=== PATIENT | male | born 1950 | race Caucasian/White ===

== ENCOUNTER 2018-03-13 09:52 | Inpatient (IN) ==
[2018-03-13] MEDS ORDERED: Naloxone Inj 0.4 MG/ML Vial IV.PUSH PRN (13:41)
[2018-03-13] MEDS ORDERED: Dextrose 50% in Water 50 ML Vial IV.PUSH PRN (13:41)
[2018-03-13] MEDS ORDERED: Acetaminophen 325 MG Tablet PO PRN ×2 (13:41)
--- NOTE | 2018-03-13 14:58 | P.HP ---
History of Present Illness Primary Care Physician: UNKNOWN Chief Complaint: Substernal chest pain History of Present Illness: 67-year-old male with a past medical history of diabetes type 2, CAD, prior [place] with stent placed presented to the ED for evaluation of acute onset of substernal chest pain rated over 6 in intensity associated with shortness of breath without any diaphoresis, with radiation to his neck and upper left arm without any tingling or numbness of upper extremities. Patient states despite taking over 2 nitroglycerin he did not have any relief until presented to the ED. The pain lasted more than 30 minutes. On arrival to the ED, patient was found to have SBP of over 200. GI bleed, he had some associated headaches. Inpatient Certification: I certify that the inpatient services were ordered in accordance with Medicare regulations governing the order. This includes certification that hospital inpatient services are reasonable and necessary and in the case of services not specified as inpatient-only under 42 CFR 419.22(n), that they are appropriately provided as inpatient services in accordance to with the 2-midnight benchmark under 43 CFR 412.3(e) Estimated Total Length of Stay (Days): 2 Plans for Post Hospital Care: Not yet determined Review of Systems All other systems reviewed negative except as stated in HPI PMFSH - History History Provided By: Patient - Medical History Medical History: Medical History (Last Updated 03/13/18 @ 13:42 by Renetta Mcmahon RN) Acute renal insufficiency At risk for falls Cataract, left eye Congenital pes planus Coronary atherosclerosis Diabetic retinopathy Hyperlipidemia Hypersomnia with sleep apnea Obesity, Class III, BMI 40-49.9 (morbid obesity) Polyneuropathy in diabetes Venous (peripheral) insufficiency Venous ulcer of leg CAD (coronary artery disease) Diabetes Heart attack Hernia Hypertension PAD (peripheral artery disease) - Surgical History Surgical History: Surgical History (Last Updated 03/13/18 @ 13:43 by Renetta Mcmahon RN) H/O hernia repair History of cholecystectomy Stented coronary artery - Family History Family History: Family History (Last Updated 03/13/18 @ 14:52 by Dov Briggs MD) Other CAD (coronary artery disease) CVA (cerebral vascular accident) - Tobacco History Second Hand Smoke Exposure: No Tobacco Use In Past 30 Days: No Smoking Status: Never smoker - Alcohol History How Often Do You Have a Drink Containing Alcohol: Never - Substance Use History Substance History: No History of Abuse - Travel History Recent Travel in the [place] Within the Last 8 Weeks: No Recent Travel Out of the Country Within the Last 8 Weeks: No - Immunization History Tetanus Immunization: Unsure Hx Influenza Vaccine This Season: Yes Medications and Allergies Active Medications: Active Medications Acetaminophen (Tylenol) 650 mg PO Q4H PRN PRN Reason: Temp > 100.4 Acetaminophen (Tylenol) 650 mg PO Q6HR PRN PRN Reason: PAIN SCALE 1 TO 2 Al Hydroxide/Mg Hydroxide (Milk Of Carolin Parr) 30 ml PO Q12H PRN PRN Reason: Mild Constipation Dextrose (D50w Vial) 50 ml IV.PUSH UNSCH PRN PRN Reason: PER HYPOGLYCEMIA PROTOCOL Glucagon (Glucagon Inj) 1 mg OTHER PRN PRN PRN Reason: for Hypoglycemia Protocol Insulin Aspart (Novolog Insulin Correctional Sugar Inj) 0 unit SQ ACHS LONG; Protocol Naloxone HCl (Narcan Inj) 0.4 mg IV.PUSH UNSCH PRN PRN Reason: SEE LABEL COMMENTS Ondansetron HCl (Zofran Inj) 4 mg IV.PUSH Q6H PRN PRN Reason: NAUSEA OR VOMITING Sodium Chloride (Ns Flush) 2 ml IV.FLUSH BID LONG Sodium Chloride (Ns Flush) 2 ml IV.FLUSH PRN PRN PRN Reason: FLUSH AFTER USING IV ACCESS Allergies Allergy/AdvReac Type Severity Reaction Status Date / Time amoxicillin Allergy Severe Hives Verified 03/13/18 13:43 losartan Allergy Hives Verified 03/13/18 13:43 Home Medications Medication Instructions Recorded Confirmed Type GlucaGen HypoKit 03/13/18 History amlodipine 10 mg PO DAILY 03/13/18 03/13/18 History aspirin [Aspir-81] 81 mg PO DAILY 03/13/18 03/13/18 History atorvastatin 80 mg PO DAILY 03/13/18 03/13/18 History carvedilol 12.5 mg PO BID 03/13/18 03/13/18 History clopidogrel [Plavix] 75 mg PO DAILY 03/13/18 03/13/18 History duloxetine 80 mg PO DAILY 03/13/18 03/13/18 History furosemide 40 mg PO DAILY 03/13/18 03/13/18 History gabapentin 300 mg PO TID 03/13/18 03/13/18 History gemfibrozil 600 mg PO BID 03/13/18 03/13/18 History glipizide 5 mg PO DAILY 03/13/18 03/13/18 History insulin aspart U-100 [Novolog 22 units SUBCUT PRN 03/13/18 History PenFill U-100 Insulin] insulin glargine [Lantus U-100 45 unit SUBCUT BID 03/13/18 03/13/18 History Insulin] insulin glargine [Lantus U-100 90 unit SUBCUT BID 03/13/18 03/13/18 History Insulin] isosorbide mononitrate 90 mg PO QAM 03/13/18 03/13/18 History lisinopril 20 mg PO DAILY 03/13/18 03/13/18 History lisinopril 20 mg PO DAILY 03/13/18 03/13/18 History magnesium oxide 400 mg PO BID 03/13/18 03/13/18 History metformin 1,000 mg PO BID 03/13/18 03/13/18 History niacin 1,500 mg PO QAM 03/13/18 03/13/18 History nitroglycerin 0.4 mg SUBLINGUAL Q5-15M PRN 03/13/18 03/13/18 History vitamin B complex 1 tab PO DAILY 03/13/18 03/13/18 History Exam Vital signs: Intake & Output 03/12/18 03/13/18 03/13/18 18:59 06:59 18:59 Weight 152.6 kg Other: Weight On Admission 152.6 kg Narrative: GENERAL: NAD SKIN: Warm and dry. HEAD: Atraumatic. Normocephalic. EYES: Pupils equal and round. No scleral icterus. No injection or drainage. ENT: No nasal bleeding or discharge. Mucous membranes pink and moist. NECK: Trachea midline. No JVD. CARDIOVASCULAR: Regular rate and rhythm. RESPIRATORY: No accessory muscle use. Clear to auscultation. Breath sounds equal bilaterally. GASTROINTESTINAL: Abdomen soft, non-tender, nondistended. Hepatic and splenic margins not palpable. MUSCULOSKELETAL: Extremities without clubbing, cyanosis, or edema. No obvious deformities. NEUROLOGICAL: Awake and alert. No obvious cranial nerve deficits. Motor grossly within normal limits. Five out of 5 muscle strength in the arms and legs. Normal speech. PSYCHIATRIC: Appropriate mood and affect; insight and judgment normal. Caprini VTE Risk Assessment Caprini VTE Risk Assessment: Moderate/High Risk (score >= 2) Caprini Risk Assessment Model: Point Value = 1 Point Value = 2 Point Value = 3 Point Value = 5 Age 41-60 Minor surgery BMI > 25 kg/m2 Swollen legs Varicose veins or History of unexplained or recurrent spontaneous Oral contraceptives or hormone replacement Sepsis (< 1 month) Serious lung disease, including pneumonia (< 1 month) Abnormal pulmonary function Acute myocardial infarction Congestive heart failure (< 1 month) History of inflammatory bowel disease Medical patient at bed rest Age 61-74 Arthroscopic surgery Major open surgery (> 45 min) Laparoscopic surgery (> 45 min) Malignancy Confined to bed (> 72 hours) Immobilizing plaster cast Central venous access Age >= 75 History of VTE Family history of VTE Factor V Leiden Prothrombin [id number] Lupus anticoagulant Anticardiolipin antibodies Elevated serum homocysteine Heparin-induced thrombocytopenia Other congenital or acquired thrombophilia Stroke (< 1 month) Elective arthroplasty Hip, pelvis, or leg fracture Acute spinal cord injury (< 1 month) Prophylaxis Regimen: Total Risk Factor Score Risk Level Prophylaxis Regimen 0-1 Low Early ambulation 2 Moderate Order ONE of the following: *Sequential Compression Device (SCD) *Heparin 5000 units SQ BID 3-4 Higher Order ONE of the following medications: *Heparin 5000 units SQ TID *Enoxaparin/Lovenox 40 mg SQ daily (WT < 150 kg, CrCl > 30 mL/min) *Enoxaparin/Lovenox 30 mg SQ daily (WT < 150 kg, CrCl > 10-29 mL/min) *Enoxaparin/Lovenox 30 mg SQ BID (WT < 150 kg, CrCl > 30 mL/min) AND/OR *Sequential Compression Device (SCD) 5 or more Highest Order ONE of the following medications: *Heparin 5000 units SQ TID (Preferred with Epidurals) *Enoxaparin/Lovenox 40 mg SQ daily (WT < 150 kg, CrCl > 30 mL/min) *Enoxaparin/Lovenox 30 mg SQ daily (WT < 150 kg, CrCl > 10-29 mL/min) *Enoxaparin/Lovenox 30 mg SQ BID (WT < 150 kg, CrCl > 30 mL/min) AND *Sequential Compression Device (SCD) Assessment and Plan - Plan 67-year-old man with Atypical chest pain Chest x-ray noted and reviewed by me without any cardiopulmonary disease Continue with ACS rule out per protocol with serial cardiac enzyme and EKGs. Initial Troponin I of 0.04 Continue with aspirin, statin,NTP, nitroglycerin. MICHAEL inhibitor and Coreg currently on hold Cardiology consultation as needed Check 2D echo and nuclear stress test in a.m. as patient with multiple CAD risk factors as well as history of previous FL with stent placement Malignant hypertension Patient is responding well to nitroglycerin drip Oral antihypertensive medications currently on hold Check 2D echo Diabetes type 2 Resume Lantus and start insulin sliding scale and hold all oral antihyperglycemic agents Normochromic normocytic anemia H&H stable, continue to monitor and transfuse for hemoglobin less than 7 Chronic kidney disease stage II Monitor BUN and creatinine Avoid all nephrotoxic drug DVT prophylaxis: Heparin
[2018-03-13 16:24] LABS: Troponin I 2.62 ng/mL (0.02-0.05)
--- NOTE | 2018-03-13 16:30 | ECHRPT ---
Indication: SHORTNESS OF BREATH CONCLUSIONS The left ventricle is not well visualized but appears to be preserved. Calcification of the non-coronary cusp. Mild aortic stenosis. There is trace tricuspid valve regurgitation. The estimated pulmonary arterial pressure is 19 mmHg. BP: / HR: Rhythm: Sinus MEASUREMENTS (Male / Female) Normal Values Technical Quality:Poor 2D ECHO RV Internal Dim ED PLAX 3.8 cm DOPPLER AV Peak Velocity 274.0 cm/s AV Peak Gradient 30.0 mmHg AV Mean Gradient 17.0 mmHg AV Velocity Time Integral 56.8 cm LVOT Peak Velocity 139.0 cm/s LVOT Peak Gradient 7.7 mmHg TR Peak Velocity 151.0 cm/s TR Peak Gradient 9.1 mmHg Right Atrial Pressure 10.0 mmHg Pulmonary Artery Systolic Pressu 19.1 mmHg Right Ventricular Systolic Press 19.1 mmHg PV Peak Velocity 107.0 cm/s PV Peak Gradient 4.6 mmHg FINDINGS LEFT VENTRICLE The left ventricle is not well visualized. RIGHT VENTRICLE The right ventricle was not well visualized. LEFT ATRIUM The left atrium was not well visualized. RIGHT ATRIUM The right atrium is not well visualized. ATRIAL SEPTUM The interatrial septum not well visualized. AORTA The aortic root and proximal ascending aorta are not well visualized. MITRAL VALVE The mitral valve is not well visualized. AORTIC VALVE The aortic valve is not well visualized. Calcification of the non-coronary cusp. Mild aortic stenosis TRICUSPID VALVE There is trace tricuspid valve regurgitation. The estimated pulmonary arterial pressure is 19 mmHg. PULMONARY VALVE The pulmonary valve is not well visualized. VESSELS The inferior vena cava was not well visualized. Humaira Martinez MD, FACC (Electronically Signed) Final Date:13 March 2018 16:29
[2018-03-13] MEDS: Isosorbide Mononitrate 30 MG ER 24HR Tablet (Imdur) PO SCH (16:56)
[2018-03-13] MEDS: Insulin NovoLOG Aspart Correctional Sugar Inj SQ SCH ×2 (17:29→21:12)
[2018-03-13] MEDS ORDERED: Heparin 10,000 UNITS/10 ML Vial (for IV use) IV.PUSH STA (18:45)
[2018-03-13 19:32] LABS: Activated Partial Thrombo Time 24.4 sec (23.4-31.7); Prothrombin Time 9.8 sec (9.8-11.6)
[2018-03-13 20:15] LABS: Troponin I 4.02 ng/mL (0.02-0.05)
[2018-03-13] MEDS: Gemfibrozil 600 MG Tablet PO SCH (20:25)
[2018-03-13] MEDS: Heparin Drip 25,000 UNIT/250 ML BAG IV.CONT PRN (20:34)
[2018-03-13] MEDS: Insulin Detemir Inj 1,000 UNIT/10 ML Vial SQ SCH (21:11)
--- NOTE | 2018-03-13 22:46 | MB ---
cc: Jethro Nelson DO DATE: 03/13/2018 REASON FOR CONSULTATION: NSTEMI. HISTORY OF PRESENT ILLNESS: Zheng Roman is a pleasant 67-year-old male who sees my partner, Dr. Crespo, in the office and presented to [facility] Emergency Room due to chest pain and shortness of breath. He states that he woke up this morning and started noticing 6/10 chest pain, which was in the center of his chest, radiating to his left arm. His brought him to the emergency room and as they were going to the emergency room, he started getting it up his left neck into his jaw. He took 2 nitroglycerin, which did not have any relief. On arrival to the emergency room, he was found to have extensive hypertension with a systolic blood pressure over 200. He was started on a nitroglycerin drip and transferred to [facility]. PAST MEDICAL HISTORY: 1. Coronary artery disease. 2. Congenital pes planus. 3. Diabetic retinopathy. 4. Hyperlipidemia. 5. Sleep apnea. 6. Obesity. 7. Polyneuropathy diabetes. 8. Venous insufficiency. 9. Diabetes. 10. Hernia. 11. Hypertension. 12. Peripheral artery disease. PAST SURGICAL HISTORY: 1. Hernia repair. 2. Cholecystectomy. 3. Previous cardiac catheterization for which the patient stated that a number of years ago, they attempted balloon angioplasty of the vessel multiple times and finally stented it with some in-stent restenosis, although he is unclear of exactly what vessel and what exactly was done. ALLERGIES: 1. AMOXICILLIN. 2. LOSARTAN. MEDICATIONS: 1. Glipizide 5 mg daily. 2. Gabapentin 300 mg t.i.d. 3. Duloxetine 80 mg daily. 4. Plavix 75 mg daily. 5. Coreg 12.5 mg b.i.d. 6. Lipitor 80 mg daily. 7. NovoLog 22 units. 8. Lantus 90 units b.i.d. 9. Metformin 1000 mg b.i.d. 10. Imdur 90 mg every morning. 11. Norvasc 10 mg daily. 12. Lasix 40 mg daily. 13. Aspirin 81 mg daily. 14. Lisinopril 20 mg daily. 15. Nitro sublingual as needed. 16. Niacin 1500 mg every morning. 17. Gemfibrozil 600 mg b.i.d. FAMILY HISTORY: Denies sudden cardiac within the family. SOCIAL HISTORY: Denies tobacco, alcohol or drug abuse. REVIEW OF SYSTEMS: Fourteen systems were reviewed including osteopathic. Pertinent positives and negatives above, otherwise negative. PHYSICAL EXAMINATION: VITAL SIGNS: Temperature 98.6, heart rate 93, blood pressure 157/72, respirations 15, pulse oximetry 96% on room air. GENERAL: The patient appears well, in no acute distress. Alert, awake and oriented x3. HEENT: Extraocular muscles intact. Mucous membranes moist. NECK: Supple. No JVD at 45 degrees. No carotid bruits heard bilaterally. Carotid upstroke is brisk in nature. HEART: Heart is regular rate and rhythm with a 2/6 crescendo/decrescendo murmur to the right sternal border. LUNGS: Clear to auscultation bilaterally. No wheezes, rales or rhonchi. ABDOMEN: Soft, nontender, nondistended. No organomegaly. EXTREMITIES: Show trace edema bilaterally. Femoral and distal pulses intact bilaterally. NEUROLOGIC: No focal deficit. SKIN: Warm, dry and intact. OSTEOPATHIC: No kyphoscoliosis, lordosis or paraspinal tender points. LABORATORY DATA: Hemoglobin 10.4, hematocrit 36.1, platelets 306. Potassium 4.8, BUN 29, creatinine 1.5. Troponin 2.62. Electrocardiogram (03/13/2018 at 13:55): Sinus rhythm, nonspecific ST-T wave changes. IMPRESSION: 1. Non-ST elevation myocardial infarction. 2. Chest pain concerning for coronary insufficiency. 3. Accelerated hypertension. 4. Known coronary artery disease. 5. Chronic kidney disease versus acute kidney injury. RECOMMENDATIONS: 1. Mr. Roman presented with typical angina and an elevated troponin. 2. Because of this, he will be recommended cardiac catheterization in the morning. He is currently without chest pain on a nitroglycerin drip. 3. We will start him on a heparin drip. 4. We will check a 2-D echo to look at his overall left ventricular function, cardiac structure and possible valvulopathies. By exam, he appears to have mild aortic stenosis. 5. If at any time overnight, he becomes unstable hemodynamically or electrically, or has chest pain unrelenting to nitroglycerin, he will be taken more emergently. 6. We will have to check lab work in the morning as his creatinine is 1.5, although this may be due to his extensive hypertension on arrival. 7. He will be evaluated by Dr. Crespo tomorrow for further considerations of cardiac catheterization. 8. Risks, benefits and alternatives of cardiac catheterization were discussed with the patient. Thank you for allowing me to see Zheng Roman. If there are any questions, please do not hesitate to call. Jethro Nelson DO VGP/sv , 09:12 PM , 09:22 PM
[2018-03-14 02:10] LABS: Baso # (Auto) 0.1 th/mm3 (0.0-0.2); Baso % (Auto) 1.3 % (0.0-2.0); Eos # (Auto) 0.2 th/mm3 (0.0-0.4); Eos % (Auto) 3.6 % (0.0-4.0); Hematocrit 31.7 % (39.0-51.0); Hemoglobin 9.6 gm/dL (13.0-17.0); Lymph # (Auto) 2.1 th/mm3 (1.0-4.8); Lymph % (Auto) 30.7 % (9.0-44.0); Mean Corpuscular Hemoglobin 22.7 pg (27.0-34.0); Mean Corpuscular Volume 75.1 fL (80.0-100.0); Mean Platelet Volume 7.2 fL (7.0-11.0); Mono # (Auto) 0.8 th/mm3 (0.0-0.9); Mono % (Auto) 11.5 % (0.0-8.0); Neut # (Auto) 3.7 th/mm3 (1.8-7.7); Neut % (Auto) 52.9 % (16.0-70.0); Platelet Count 241 th/mm3 (150-450); Red Blood Count 4.22 mil/mm3 (4.50-5.90); Red Cell Distribution Width 19.3 % (11.6-17.2); White Blood Count 6.9 th/mm3 (4.0-11.0)
[2018-03-14 02:11] LABS: Mean Corpuscular HGB Conc 30.2 % (32.0-36.0)
[2018-03-14] MEDS: Heparin 10,000 UNITS/10 ML Vial (for IV use) IV.PUSH PRN ×2 (02:55→09:28)
[2018-03-14 03:11] LABS: Alanine Aminotransferase 18 U/L (12-78); Albumin 3.4 g/dL (3.4-5.0); Anion Gap 7 meq/L (5-15); Aspartate Aminotransferase 30 U/L (15-37); Blood Urea Nitrogen 22 mg/dL (7-18); Calcium 8.3 mg/dL (8.5-10.1); Carbon Dioxide 27.3 meq/L (21.0-32.0); Chloride 106 meq/L (98-107); Cholesterol 124 mg/dL (120-200); Glomerular Filtration Rate 61 mL/min (>89); Glucose,Random 127 mg/dL (74-106); Potassium 4.1 meq/L (3.5-5.1); Sodium 140 meq/L (136-145); Triglycerides 132 mg/dL (42-150)
[2018-03-14 03:15] LABS: Alkaline Phosphatase 87 U/L (45-117); Chol/HDL Ratio 2.41 Ratio; HDL Cholesterol 51.3 mg/dL (40.0-60.0); LDL Cholesterol,Calculated 46 mg/dL (0-99); Total Protein 7.2 g/dL (6.4-8.2)
[2018-03-14] MEDS ORDERED: Labetalol HCl Inj 100 MG/20 ML Vial IV.PUSH ONE (04:01)
[2018-03-14] MEDS: Morphine Inj 4 MG/ML Vial IV.PUSH PRN ×3 (04:30→10:09)
[2018-03-14] MEDS ORDERED: fentaNYL Citrate Inj 100 MCG/2 ML Ampul IV.PUSH SCH (08:00)
--- NOTE | 2018-03-14 08:13 | ECG ---
Date Performed: 03/13/2018 Time Performed: 13:55:36 PTAGE: 67 years EKG: Sinus rhythm NORMAL ECG Since the PREVIOUS TRACING , no significant change noted PREVIOUS TRACIN03/13/18 [id number] DOCTOR: Kristin Ornelas Interpretating Date/Time 03/14/2018 08:12:18
--- NOTE | 2018-03-14 08:13 | ECG ---
Date Performed: 03/13/2018 Time Performed: 19:59:44 PTAGE: 67 years EKG: Sinus rhythm NORMAL ECG Since the PREVIOUS TRACING , no significant change noted PREVIOUS TRACIN03/13/2018 13.55 DOCTOR: Kristin Ornelas Interpretating Date/Time 03/14/2018 08:12:26
[2018-03-14] MEDS: Gemfibrozil 600 MG Tablet PO SCH ×2 (08:31→21:04)
[2018-03-14] MEDS: Insulin Detemir Inj 1,000 UNIT/10 ML Vial SQ SCH ×2 (08:31→21:06)
[2018-03-14] MEDS: Isosorbide Mononitrate 30 MG ER 24HR Tablet (Imdur) PO SCH (08:31)
[2018-03-14] MEDS: Sod Chloride 0.9% Inj 1,000 ML IV.CONT SCH ×3 (08:40→17:33)
--- NOTE | 2018-03-14 09:04 | P.PNIM ---
Subjective Interval history: Seen and evaluated this morning at bedside. Events leading to hospitalization reviewed in detail with the patient. Patient reports that symptoms originally started with chest pain across both sides of his chest which started spontaneously. Patient denied nausea or vomiting. Patient without diaphoresis. Patient currently doing well but overnight reportedly had episode of chest pain and was placed on nitroglycerin drip and heparin drip in anticipation for catheterization today. Otherwise patient without shortness of breath palpitations or chest pain. Physical Exam Vital signs: Last Vital Signs Temp 98.2 F 03/14/18 07:54 Pulse 72 03/14/18 08:00 Resp 15 03/14/18 08:00 BP 142/65 H 03/14/18 07:54 Pulse Ox 98 03/14/18 08:00 Intake & Output 03/12/18 03/13/18 03/14/18 03/15/18 06:59 06:59 06:59 06:59 Intake Total 500 / 500 Balance 500 / 500 Weight 150.7 kg General: No acute distress, conversational. Obese male Age: EOMI Cardiovascular: S1/S2. Systolic murmur noted Respiratory: Clear to auscultation anteriorly and posteriorly without wheezing, rales, or rhonchi. No intercostal muscle use Gastroenterology: Soft, nontender, nondistended, no guarding or rebound appreciated. Positive bowel sounds. ext: no edema, no calf tenderness Results Labs CBC & Chem 7: 03/14/18 01:55 03/14/18 01:55 Assessment and Plan (1) Chest pain: Code(s): R07.9 - Chest pain, unspecified Status: Acute (2) Diabetes: Code(s): E11.9 - Type 2 diabetes mellitus without complications Status: Acute (3) Myocardial infarct, old: Code(s): I25.2 - Old myocardial infarction Status: Acute Plan Patient is a 67-year-old obese male past medical history of diabetes, coronary artery disease with stents and history of myocardial infarction who presents with acute onset chest pain with elevated troponin levels admitted for non-ST elevation CO Cardiology: Troponemia, NSTEMI Cardiology consulted and recommendations appreciated Catheterization Statin, beta-yessenia, aspirin Telemetry EKG as needed chest pain Nitroglycerin drip N.p.o. status Echo reviewed: mild . trace TR, LV function grossly preserved. Heparin drip Nephrology: Acute kidney injury Suspect this may be due to elevated blood pressure with hypertensive involvement. Chemistry level monitoring Endocrinology: Diabetes type 2 Hold oral hypoglycemics Insulin sliding scale Inpatient goal 140-180 Outpatient regimen Lantus 45 units twice daily and approximately 28 units with meals CODE STATUS: Full code DVT prophylaxis: Heparin drip Disposition: Medical surgery unit Plan of care discussed with patient at bedside Progress Note: Quality VTE Deep Vein Thrombosis/Pulmonary Embolism Present on Admission: No
[2018-03-14] MEDS: Nitroglycerin Drip Premix 50 MG/250 ML BOTTLE IV.CONT PRN ×2 (09:15→12:57)
[2018-03-14] MEDS: Insulin NovoLOG Aspart Correctional Sugar Inj SQ SCH ×4 (10:07→21:23)
[2018-03-14] MEDS: Gabapentin 300 MG Capsule PO SCH ×2 (12:56→18:21)
[2018-03-14] MEDS: Heparin Drip 25,000 UNIT/250 ML BAG IV.CONT PRN (12:58)
[2018-03-14] MEDS ORDERED: Heparin/NS PF Inj 1,500 ML ONE (14:36)
[2018-03-14] MEDS ORDERED: Heparin 10,000 UNITS/10 ML Vial (for IV use) ONE (14:36)
--- NOTE | 2018-03-14 14:51 | P.PNCA ---
Subjective Interval history: Brief recurrent chest discomfort last night, none since. No dyspnea, dizziness , palpitations. Medications and Allergies Active Medications: Active Medications Acetaminophen (Tylenol) 650 mg PO Q4H PRN PRN Reason: Temp > 100.4 Last Admin: 03/14/18 09:24 Dose: 650 mg Acetaminophen (Tylenol) 650 mg PO Q6HR PRN PRN Reason: PAIN SCALE 1 TO 2 Hydrocodone Bitart/Acetaminophen ([place] 5/325) 1 tab PO Q4H PRN PRN Reason: pain 3 - 5 Last Admin: 03/14/18 05:23 Dose: 1 tab Al Hydroxide/Mg Hydroxide (Milk Of [place]) 30 ml PO Q12H PRN PRN Reason: Mild Constipation Aspirin (Ecotrin) 81 mg PO DAILY [facility] Last Admin: 03/14/18 08:32 Dose: 81 mg Atorvastatin Calcium (Lipitor) 80 mg PO DAILY [facility] Last Admin: 03/14/18 08:31 Dose: 80 mg Clopidogrel Bisulfate (Plavix) 75 mg PO DAILY [facility] Last Admin: 03/14/18 08:32 Dose: 75 mg Dextrose (D50w Vial) 50 ml IV.PUSH UNSCH PRN PRN Reason: PER HYPOGLYCEMIA PROTOCOL Diphenhydramine HCl (Benadryl) 50 mg PO MACHINE PLATE [employer] [facility] Stop: 03/18/18 07:59 Fentanyl Citrate (Fentanyl Inj) 50 mcg IV.PUSH [employer]ACHINE [employer] [facility] Stop: 03/18/18 07:59 Gabapentin (Neurontin) 300 mg PO TID [facility] Last Admin: 03/14/18 12:56 Dose: 300 mg Gemfibrozil (Lopid) 600 mg PO BID [facility] Last Admin: 03/14/18 08:31 Dose: 600 mg Glucagon (Glucagon Inj) 1 mg OTHER PRN PRN PRN Reason: for Hypoglycemia Protocol Heparin Sodium (Porcine) (Heparin Inj) 2,500 units IV.PUSH UNSCH PRN PRN Reason: aPTT 25-39 Last Admin: 03/14/18 09:28 Dose: 2,500 units Heparin Sodium/Dextrose (Heparin/D5w 25,000 U/250 Ml) 25,000 unit in 250 mls @ 10 mls/hr IV.CONT TITRATE PRN; Protocol PRN Reason: Per Protocol Last Admin: 03/14/18 12:58 Dose: 1,200 units/hr, 12 mls/hr Nitroglycerin/Dextrose (Nitroglycerin Drip Premix) 50 mg in 250 mls @ 0 mls/hr IV.CONT TITRATE PRN; Protocol PRN Reason: Per Protocol Last Admin: 03/14/18 12:57 Dose: 200 mcg/min, 60 mls/hr Sodium Chloride (Ns Inj) 1,000 mls @ 100 mls/hr IV.CONT .Q10H [facility] Last Admin: 03/14/18 08:40 Dose: 100 mls/hr Insulin Aspart (Novolog Insulin [place] Sugar Inj) 0 unit SQ ACHS [facility]; Protocol Last Admin: 03/14/18 13:53 Dose: Not Given Insulin Detemir (Levemir Inj) 45 unit SQ BID [facility] Last Admin: 03/14/18 08:31 Dose: 45 unit Isosorbide Mononitrate (Imdur) 90 mg PO DAILY [facility] Last Admin: 03/14/18 08:31 Dose: 90 mg Midazolam HCl (Versed Inj) 1 mg IV.PUSH [employer] [facility] Stop: 03/18/18 07:59 Morphine Sulfate (Morphine Inj) 2 mg IV.PUSH Q3H PRN PRN Reason: pain 6 - 10 Last Admin: 03/14/18 10:09 Dose: 2 mg Naloxone HCl (Narcan Inj) 0.4 mg IV.PUSH UNSCH PRN PRN Reason: SEE LABEL COMMENTS Nitroglycerin (Nitrostat Sl) 0.4 mg SL Q5M PRN PRN Reason: CHEST PAIN Ondansetron HCl (Zofran Inj) 4 mg IV.PUSH Q6H PRN PRN Reason: NAUSEA OR VOMITING Sodium Chloride (Ns Flush) 2 ml IV.FLUSH BID [facility] Last Admin: 03/14/18 08:32 Dose: 2 ml Sodium Chloride (Ns Flush) 2 ml IV.FLUSH PRN PRN PRN Reason: FLUSH AFTER USING IV ACCESS Allergies Allergy/AdvReac Type Severity Reaction Status Date / Time amoxicillin Allergy Severe Hives Verified 03/13/18 13:43 losartan Allergy Hives Verified 03/13/18 13:43 Home Medications Medication Instructions Recorded Confirmed Type GlucaGen HypoKit 03/13/18 History amlodipine 10 mg PO DAILY 03/13/18 03/13/18 History aspirin [Aspir-81] 81 mg PO DAILY 03/13/18 03/13/18 History atorvastatin 80 mg PO DAILY 03/13/18 03/13/18 History carvedilol 12.5 mg PO BID 03/13/18 03/13/18 History clopidogrel [Plavix] 75 mg PO DAILY 03/13/18 03/13/18 History duloxetine 80 mg PO DAILY 03/13/18 03/13/18 History furosemide 40 mg PO DAILY 03/13/18 03/13/18 History gabapentin 300 mg PO TID 03/13/18 03/13/18 History gemfibrozil 600 mg PO BID 03/13/18 03/13/18 History glipizide 5 mg PO DAILY 03/13/18 03/13/18 History insulin aspart U-100 [Novolog 22 units SUBCUT PRN 03/13/18 History PenFill U-100 Insulin] insulin glargine [Lantus U-100 45 unit SUBCUT BID 03/13/18 03/13/18 History Insulin] insulin glargine [Lantus U-100 90 unit SUBCUT BID 03/13/18 03/13/18 History Insulin] isosorbide mononitrate 90 mg PO QAM 03/13/18 03/13/18 History lisinopril 20 mg PO DAILY 03/13/18 03/13/18 History lisinopril 20 mg PO DAILY 03/13/18 03/13/18 History magnesium oxide 400 mg PO BID 03/13/18 03/13/18 History metformin 1,000 mg PO BID 03/13/18 03/13/18 History niacin 1,500 mg PO QAM 03/13/18 03/13/18 History nitroglycerin 0.4 mg SUBLINGUAL Q5-15M PRN 03/13/18 03/13/18 History vitamin B complex 1 tab PO DAILY 03/13/18 03/13/18 History Physical Exam Vital signs: Vital Signs 03/13/18 14:54 03/13/18 15:00 03/13/18 15:09 Temperature Pulse Rate 94 H 93 H 93 H Respiratory Rate 15 18 23 Blood Pressure 162/71 H 159/74 H Pulse Oximetry 96 96 96 03/13/18 15:33 03/13/18 15:39 03/13/18 15:54 Temperature Pulse Rate 97 H 93 H 93 H Respiratory Rate 11 L 22 15 Blood Pressure 174/80 H 158/66 H 157/72 H Pulse Oximetry 96 96 95 03/13/18 16:00 03/13/18 16:09 03/13/18 16:24 Temperature 98.6 F Pulse Rate 93 H 92 H 92 H Respiratory Rate 15 21 15 Blood Pressure 157/72 H 166/75 H 172/77 H Pulse Oximetry 96 96 94 L 03/13/18 16:39 03/13/18 16:54 03/13/18 17:00 Temperature Pulse Rate 100 H 93 H 93 H Respiratory Rate 16 15 20 Blood Pressure 169/74 H 158/64 H Pulse Oximetry 97 98 98 03/13/18 17:09 03/13/18 17:24 03/13/18 17:39 Temperature Pulse Rate 92 H 91 H 91 H Respiratory Rate 17 14 16 Blood Pressure 162/71 H 160/72 H 165/74 H Pulse Oximetry 98 98 98 03/13/18 17:54 03/13/18 18:00 03/13/18 18:09 Temperature Pulse Rate 95 H 96 H 95 H Respiratory Rate 28 H 31 H 17 Blood Pressure 166/77 H 164/75 H Pulse Oximetry 98 98 97 03/13/18 18:24 03/13/18 18:39 03/13/18 18:47 Temperature Pulse Rate 94 H 93 H 97 H Respiratory Rate 16 17 24 Blood Pressure 174/77 H 167/62 H Pulse Oximetry 98 97 97 03/13/18 18:55 03/13/18 19:00 03/13/18 20:00 Temperature 98 F Pulse Rate 94 H 94 H Respiratory Rate 10 L 29 H Blood Pressure 172/87 H 146/56 H 156/72 H Pulse Oximetry 98 97 03/13/18 21:00 03/13/18 22:00 03/13/18 23:00 Temperature Pulse Rate 93 H 95 H 92 H Respiratory Rate 22 21 14 Blood Pressure 176/74 H 165/72 H 186/84 H Pulse Oximetry 97 98 96 03/13/18 23:12 03/13/18 23:32 03/14/18 00:00 Temperature 98.2 F Pulse Rate 93 H 87 81 Respiratory Rate 14 0 L 9 L Blood Pressure 183/86 H 168/76 H Pulse Oximetry 96 96 96 03/14/18 00:10 03/14/18 01:00 03/14/18 01:10 Temperature Pulse Rate 72 81 77 Respiratory Rate 8 L 24 12 Blood Pressure 173/79 H 179/73 H Pulse Oximetry 96 97 98 03/14/18 02:00 03/14/18 02:10 03/14/18 03:00 Temperature Pulse Rate 71 72 83 Respiratory Rate 12 9 L 24 Blood Pressure 155/70 H Pulse Oximetry 96 96 98 03/14/18 03:10 03/14/18 03:20 03/14/18 03:28 Temperature Pulse Rate 75 75 76 Respiratory Rate 13 11 L 4 L Blood Pressure 188/77 H 192/81 H 185/83 H Pulse Oximetry 97 98 97 03/14/18 04:00 03/14/18 04:10 03/14/18 04:19 Temperature 98.1 F Pulse Rate 78 79 78 Respiratory Rate 15 0 L 11 L Blood Pressure 201/87 H 202/90 H Pulse Oximetry 97 97 97 03/14/18 04:30 03/14/18 04:32 03/14/18 04:36 Temperature Pulse Rate 73 68 Respiratory Rate 14 18 11 L Blood Pressure 202/88 H 192/81 H Pulse Oximetry 95 03/14/18 04:46 03/14/18 05:00 03/14/18 05:01 Temperature Pulse Rate 68 66 66 Respiratory Rate 11 L 13 12 Blood Pressure 188/81 H 177/75 H Pulse Oximetry 03/14/18 05:16 03/14/18 05:34 03/14/18 05:44 Temperature Pulse Rate 66 66 67 Respiratory Rate 0 L 13 11 L Blood Pressure 157/68 H 156/70 H 143/66 H Pulse Oximetry 98 98 03/14/18 05:54 03/14/18 06:00 03/14/18 06:04 Temperature Pulse Rate 65 67 66 Respiratory Rate 13 13 13 Blood Pressure 149/67 H 148/64 H Pulse Oximetry 97 97 97 03/14/18 06:14 03/14/18 06:24 03/14/18 06:34 Temperature Pulse Rate 67 66 67 Respiratory Rate 15 14 14 Blood Pressure 153/68 H 151/57 H 144/64 H Pulse Oximetry 98 97 97 03/14/18 06:44 03/14/18 06:54 03/14/18 07:00 Temperature Pulse Rate 67 68 68 Respiratory Rate 13 14 14 Blood Pressure 141/63 H 142/62 H Pulse Oximetry 97 97 96 03/14/18 07:04 12/27/18 07:14 03/14/18 07:24 Temperature Pulse Rate 68 69 69 Respiratory Rate 14 0 L 0 L Blood Pressure 143/64 H 136/65 143/67 H Pulse Oximetry 96 97 97 03/14/18 07:34 03/14/18 07:44 03/14/18 07:54 Temperature 98.2 F Pulse Rate 77 69 71 Respiratory Rate 19 11 L 13 Blood Pressure 140/63 114/58 L 142/65 H Pulse Oximetry 98 98 97 03/14/18 08:00 03/14/18 08:33 03/14/18 09:00 Temperature Pulse Rate 74 76 75 Respiratory Rate 15 13 Blood Pressure 135/63 Pulse Oximetry 98 94 L 92 L 03/14/18 10:00 03/14/18 10:08 03/14/18 10:15 Temperature Pulse Rate 72 76 77 Respiratory Rate 16 12 13 Blood Pressure 152/72 H 158/72 H Pulse Oximetry 99 99 98 03/14/18 10:30 03/14/18 10:45 03/14/18 10:47 Temperature Pulse Rate 77 78 Respiratory Rate 24 21 14 Blood Pressure 149/67 H 152/67 H Pulse Oximetry 97 98 03/14/18 11:00 03/14/18 11:15 03/14/18 11:30 Temperature Pulse Rate 74 74 75 Respiratory Rate 0 L 0 L 5 L Blood Pressure 149/65 H 148/66 H 146/55 H Pulse Oximetry 97 96 96 03/14/18 11:45 03/14/18 12:00 03/14/18 12:15 Temperature 99.1 F Pulse Rate 75 75 77 Respiratory Rate 14 15 14 Blood Pressure 149/65 H 154/67 H 165/74 H Pulse Oximetry 95 96 96 03/14/18 12:30 03/14/18 12:45 03/14/18 13:00 Temperature Pulse Rate 75 73 76 Respiratory Rate 14 13 28 H Blood Pressure 161/61 H 155/71 H 152/70 H Pulse Oximetry 97 97 99 03/14/18 13:15 03/14/18 13:30 03/14/18 13:35 Temperature Pulse Rate 72 74 76 Respiratory Rate 20 18 21 Blood Pressure 158/71 H 171/77 H Pulse Oximetry 97 98 93 L 03/14/18 13:45 03/14/18 14:00 03/14/18 14:15 Temperature Pulse Rate 72 71 Respiratory Rate 13 13 Blood Pressure 174/76 H 177/79 H 176/78 H Pulse Oximetry 98 98 Intake & Output 03/13/18 03/14/18 03/14/18 18:59 06:59 18:59 Intake Total 500 / 500 500 / 500 Balance 500 / 500 500 / 500 Weight 152.6 kg 150.7 kg Intake: IV 500 / 500 Heparin/D5W 25,000 U/250 mL 25, 250 / 250 000 unit In 250 ml @ Per Protocol 10 mls/hr IV.CONT TITRATE PRN Rx#:[id number] Nitroglycerin Drip Premix 50 mg 250 / 250 In 250 ml @ Per Protocol IV. CONT TITRATE PRN Rx#:[id number] Oral 500 / 500 Other: # Voids 1 3 Date of Last Bowel Movement 03/12/18 03/12/18 03/12/18 Weight On Admission 152.6 kg - Constitutional no acute distress - Routine Neck Exam Absent: JVD - Routine Respiratory Exam Present: CTA bilaterally - Routine Cardiovascular Exam Present: RRR, S1, S2, murmur. Absent: gallop Comments: II/ systolic murmur lower left sternal border, apex - Routine Abdominal Exam Present: soft, normoactive bowel sounds. Absent: tenderness, organomegaly - Routine Extremities Exam Absent: cyanosis, clubbing, edema Results 03/14/18 01:55 03/14/18 01:55 Cardiac Enzymes 03/13/18 03/13/18 03/14/18 Range/Units 15:40 19:11 01:55 AST 30 (15-37) U/L Troponin I 2.62 H* 4.02 H* (0.02-0.05) ng/mL Coagulation 03/13/18 03/14/18 03/14/18 Range/Units 19:11 01:55 08:25 PT 9.8 (9.8-11.6) sec APTT 24.4 29.4 D 30.1 (23.4-31.7) sec Lipids 03/14/18 Range/Units 01:55 Triglycerides 132 (42-150) mg/dL Cholesterol 124 (120-200) mg/dL HDL Cholesterol 51.3 (40.0-60.0) mg/dL Cholesterol/HDL Ratio 2.41 Ratio CBC 03/14/18 Range/Units 01:55 WBC 6.9 (4.0-11.0) th/mm3 RBC 4.22 L (4.50-5.90) mil/mm3 Hgb 9.6 L (13.0-17.0) gm/dL Hct 31.7 L (39.0-51.0) % Plt Count 241 (150-450) th/mm3 Neut # (Auto) 3.7 (1.8-7.7) th/mm3 Lymph # (Auto) 2.1 (1.0-4.8) th/mm3 [place] # (Auto) 0.8 (0.0-0.9) th/mm3 Eos # (Auto) 0.2 (0.0-0.4) th/mm3 Baso # (Auto) 0.1 (0.0-0.2) th/mm3 Comprehensive Metabolic Panel 03/14/18 Range/Units 01:55 Sodium 140 (136-145) meq/L Potassium 4.1 (3.5-5.1) meq/L Chloride 106 (98-107) meq/L Carbon Dioxide 27.3 (21.0-32.0) meq/L BUN 22 H (7-18) mg/dL Creatinine 1.20 (0.60-1.30) mg/dL Calcium 8.3 L (8.5-10.1) mg/dL AST 30 (15-37) U/L ALT 18 (12-78) U/L Alkaline Phosphatase 87 (45-117) U/L Total Protein 7.2 D (6.4-8.2) g/dL Albumin 3.4 (3.4-5.0) g/dL Intake and Output 03/13/18 03/14/18 03/14/18 22:59 06:59 14:59 Intake Total 500 / 500 500 / 500 Balance 500 / 500 500 / 500 Intake: IV 500 / 500 Heparin/D5W 25,000 U/250 mL 25, 250 / 250 000 unit In 250 ml @ Per Protocol 10 mls/hr IV.CONT TITRATE PRN Rx#:[id number] Nitroglycerin Drip Premix 50 mg 250 / 250 In 250 ml @ Per Protocol IV. CONT TITRATE PRN Rx#:[id number] Oral 500 / 500 Other: # Voids 1 3 Date of Last Bowel Movement 03/12/18 03/12/18 03/12/18 Weight 150.7 kg Assessment and Plan - Assessment (1) Coronary artery disease Code(s): I25.10 - Atherosclerotic heart disease of [place] coronary artery without angina pectoris Status: Acute Plan: Stable overnight. Symptoms, cardiac enzymes consistent with acute NSTEMI. Recurrent CP last night. Recommend cath today. Resume beta yessenia, MICHAEL-I therapy. (2) Hypertension Code(s): I10 - Essential (primary) hypertension Status: Chronic Plan: Mostly hypertensive. Recommend resume his amlodipine, carvedilol, Lisinopril. (3) Hyperlipidemia Code(s): E78.5 - Hyperlipidemia, unspecified Status: Chronic Plan: Good lipid profile. Continue statin therapy. - Plan Code Status: full Discussed Condition With: patient (1) Coronary artery disease Qualifiers: Coronary Disease-Associated Artery/Lesion type: [place] artery [place] vs. transplanted heart: [place] heart Associated angina: with unstable angina Qualified Code(s): I25.110 - Atherosclerotic heart disease of [place] coronary artery with unstable angina pectoris (2) Hypertension Qualifiers: Hypertension type: essential hypertension Qualified Code(s): I10 - Essential (primary) hypertension (3) Hyperlipidemia Qualifiers: Hyperlipidemia type: mixed hyperlipidemia Qualified Code(s): E78.2 - Mixed hyperlipidemia
[2018-03-14] MEDS ORDERED: fentaNYL Citrate Inj 100 MCG/2 ML Ampul ONE (15:02)
--- NOTE | 2018-03-14 16:24 | CATHPROC ---
[facility] HIS Report Study Information Study Number Admission Scheduled Start Study Start [id number] 03/13/2018 03/14/2018 Mar 14 2018 2:51PM Study Type [place] Service Left Heart Cath Cardiac Catheterization Referring Institution Admit Source Facility Department 1 Emergency department [facility] - Channel Specialist Physician and Clinical Staff Initial Erick Polanco Materials Management Supervisor Federico NationRN Materials Management Supervisor Tejas De Luna RN RecordMeaghan Arias,YOGESH TECH2 Scrub Racquel Macedo Procedures Performed Procedure Location (Site) Vessel Name Angiogram LV LV Ventricle Coronary Angiograms LCA Left Coronary Coronary Angiograms RCA Right Coronary LV Gram-hand inj. LV LV Ventricle Wire insertion Radial (right) Radial Art. Equipment Time Senior Compliance Officer Description Size Mfg Part Number Used/Scraped TRANSDUCER, TRUWAVE [id number] 14:52 PEÑA ROBERSON * Used W/STOCKCOCK *[id number] *[id number] [id number] *[id number] 534-642T *[id number] PIGTAIL ANG. 145 INFINITI 534-652S CATHETER *[id number] 534-550S *[id number] 14:52 MALLINCKRODT SYRINGE, ANGIOMAT 150ML 150ML *[id number] Used 2S [employer] CONCEPT DRAPE, RADIAL FEMORAL FULL 14:52 * [id number] *[id number] Used DEVELOPMENT BODY [id number] 14:52 [employer] BLANKET,WARM AIR CCL * Used *[id number] 14:52 [employer] PACK, CCL CUSTOM * Used *[id number] 14:52 [employer] SUPPORT, ARTERIAL ADULT 98007 *[id number] Used [id number] 14:52 [employer] PACER PEN, SKIN DUAL W/ RULER * Used *[id number] 15:29 [employer] JL 3.5 DXTERITY CATHETER FR 6 [id number] Used BAND, RADIAL COMPRESSION TR [id number] 15:59 [employer] MEDICAL 29CM Used LARGE 29 *[id number] SHEATH, FR6 RADIAL PRELUDE 14:52 [employer] MEDICAL FR 6 [id number] Used EASE 11CM [id number] 14:52 [employer] MEDICAL WIRE, EXCHANGE 260CM 3MMJ 260CM Used *[id number] 15:47 [employer] MEDICAL WIRE, EXCHANGE 260CM 3MMJ 260CM Used *[id number] 14:52 [employer] MANIFOLD, 4 PORT * Used *[id number] 14:52 [employer] OMNIPAQUE, 350 MG, 150ML 150ML [id number] Used 15:36 [employer] OMNIPAQUE, 350 MG, 50ML 50ML [id number] Used CATHETER, FR5 OPTITORQUE [id number] 15:25 [employer] FR 5 Used RADIAL TIG 4.0 *[id number] Equipment Model, Serial, Lot Number and Expiration Data Description Model Number Serial Number Lot Number Expiration Date JL 3.5 DXTERITY CATHETER [id number] 08-21-2020 History: Current Medications Medication Dosage/Unit Route Frequency Last Date/Time Taken ASA NORVASC Statins (any) CARVEDILOL PLAVIX LASIX Neurontin Glypizide Insulin Imdur LISINOPRIL Glucophage NTG SL History: Allergies Allergy Reaction amoxicillin Hives losartan Hives History: Risk Factors Hypertension Dyslipidemia Previous AL Yes Yes Yes Prior Valve Prior PCI Prior CABG Surgery No Yes No Cerebrovascular Peripheral Artery Diabetes Diabetes Therapy Disease Disease No Yes Yes Insulin History: Symptoms/Diagnosis Selection Items Chest pain SOB History: Stress Tests Stress or Imaging Studies Performed No History: Other Current Smoker No Labs Hgb (g/dl) Hct (%) WBC (l/cumm) Platelets (thousands) 11.60-17.00 35.00-51.00 4.00-11.00 150.00-450.00 9.6 31.7 6.9 241 Glucose (mg/dl) BUN (mg/dl) Creatinine (mg/dl) BUN:Creatinine (1:x) 74.00-106.00 7.00-18.00 0.50-1.30 10.00-20.00 127 22 1.2 18.3 Na (meq/l) K (meq/l) 136.00-145.00 3.50-5.10 140 4.1 Troponin I (ng/ml) CPK (u/l) CPK-MB (ng/ML) 0.02-0.05 26.00-308.00 0.50-3.60 4 188 Not Drawn Cholesterol (mg/dl) HDL (mg/dl) LDL (mg/dl) HDL:LDL (1:x) Triglycerides (mg/d l) 120.00-200.00 40.00-60.00 0.00-99.00 1.00-6.00 42.00-150.00 124 51 46 0.9 132 Medication Medication Total Dose (Bolus/Oral) Medication Total Dosage/Unit 1% XYLOCAINE 20 mL FENTANYL 50 mcg RADIAL COCKTAIL 5 mL (Bolus) VERSED 2 mg Medications (Bolus/Oral) Medication Time Given Dosage/Unit Administered By Reason VERSED 03/14/2018 3:18:20 PM 2 mg Federico Nation 2 mg VERSED given in lab by Federico Nation RN in Right Antecubital via Peripheral IV. Ordered by Erick Echavarria. 1% XYLOCAINE 03/14/2018 3:18:53 PM 20 mL Patient arrived on 20 mL 1% XYLOCAINE via Subcutaneous. FENTANYL 03/14/2018 3:19:26 PM 50 mcg Federico Nation 50 mcg FENTANYL given in lab by Federico Nation RN in Right Antecubital via Peripheral IV. Ordered by Erick Rebolledo. Ntg 200mcg Verapamil 2.5mg Heparin RADIAL COCKTAIL 03/14/2018 3:22:35 PM 5 mL (Bolus) Erick Echavarria 2500U 5 mL (Bolus) RADIAL COCKTAIL given in lab by Erick Echavarria in Right Radial via Radial. Using [Solution Name]. Ordered by Erick Echavarria. Reason: Ntg 200mcg Verapamil 2.5mg Heparin 2500U. Medication (Drip) Medication Time Given Dosage/Unit Concentration/Unit Diluent (ml) Solution IV Solutions 03/14/2018 2:52:35 PM 0 mL (IV) 1000 NaCl .9 Patient arrived on IV Solutions in Right Antecubital via Peripheral IV. Pump/Drip Flow = 20 ml/hr usi ng NaCl .9. NITROGLYCERIN DRIP 03/14/2018 2:52:37 PM 200 mcg/min 50 mg 250 D5W Patient arrived on 200 mcg/min NITROGLYCERIN DRIP in Right Antecubital via Peripheral IV. Pump/Drip F low = 60 ml/hr using D5W with a concentration of 50 mg in 250 ml. Initial Case Assessment Cardiovascular HR Rhythm NIBP Chest Pain 77 SR 173/74 2 Neurological State Oriented to time-place- Alert Moves all extremities person Respiration - General Respiration Rate SpO2 (%) O2 (lpm) (B/min) 22 99 4 Final Case Assessment Cardiovascular HR Rhythm NIBP 82 sr 181/85 Circulatory - Right Pulses Dorsalis Pedis Femoral Radial 1 1 2 Scale (0,1,2,3,4,d) Circulatory - Left Pulses Dorsalis Pedis Femoral Radial 1 Scale (0,1,2,3,4,d) Neurological State Oriented to time-place- Alert Moves all extremities person Respiration - General Respiration Rate SpO2 (%) O2 (lpm) (B/min) 16 96 4 Chronological Log Time Study Chronological Log 14:40:51 Patient arrived via Bed. 14:40:59 Patient Name, D.O.B, / Armband Verified By R.N. 14:41:05 Pre-op and post- op instructions given; patient acknowledges understanding of instructions. 14:41:12 Verbal Stimulation=2 Physical Stimulation=2 Airway=2 Respiration=2 TOTAL=8. (0=absent, 1=li mited, 2=present) Vitals capture started with the following parameters, Patient=Adult, Interval=5 min, Initial Pr qcdxvz=891 mmHg, 14:50:48 Deflation Rate=5 mmHg, Cuff placed on Left Arm 14:52:17 HR=76 bpm, IWNU=461/76 mmhg, SpO2=98.0 %, Resp=18 B/min 14:52:24 Presedation assessment performed by Channel Specialist RN. 14:52:26 Allens test performed on the right radial and ulnar artery. 14:52:28 Patient has been NPO for More than 6Hrs. 14:52:29 Skin Breakdown- 14:52:31 Enoc Prominences Protected 14:52:34 A # 20 IV was noted in the Antecubital (right). Grade = 0 14:52:35 Patient arrived on IV Solutions in Right Antecubital via Peripheral IV. Pump/Drip Flow = 20 ml/hr using NaCl .9. 14:52:36 A # 20 IV was noted in the Hand (right). Grade = 0 Patient arrived on 200 mcg/min NITROGLYCERIN DRIP in Right Antecubital via Peripheral IV. Pump/ Drip Flow = 60 14:52:37 ml/hr using D5W with a concentration of 50 mg in 250 ml. 14:52:38 History and physical on the chart or being dictated. 14:56:37 HR=77 bpm, LFLB=417/74 mmhg, SpO2=98.0 %, Resp=22 B/min Assessment: Initial Case, HR=77 BPM, Rhythm=SR, XWLA=823/74 mmhg, Chest Pain=2 14:57:16 Neurological: State=Alert, Ox3, CALERO Respiration: Resp=22 B/min, SpO2=99 %, O2=4 lpm 15:00:39 Right Radial and groin(s) prepped with 2% chlorhexidine, and draped after a 3 min. waiting time. 15:01:34 HR=77 bpm, MHJH=386/80 mmhg, SpO2=99.0 %, Resp=18 B/min 15:06:41 HR=74 bpm, BRKI=625/78 mmhg, SpO2=99.0 %, Resp=14 B/min 15:10:24 MD paged 15:10:50 Pressure channel 1 zeroed. 15:11:42 HR=75 bpm, VONT=052/79 mmhg, SpO2=98.0 %, Resp=15 B/min 15:11:47 MD responded 15:15:10 MD arrived. 15:16:35 HR=76 bpm, NRFC=528/76 mmhg, SpO2=98.0 %, Resp=14 B/min Time Out. Correct patient, correct procedure, correct physician, labs, allergies, and equipment verified with laborer pole crew 15:17:46 team present. Fire risk assesment completed (see hard stop sheet for coding). Time Out Conc urred by MD and individual staff in procedure. 15:18:20 2 mg VERSED given in lab by Federico Nation, RN in Right Antecubital via Peripheral IV. Ordere d by Erick Echavarria. 15:18:52 Case Start 15:18:53 Patient arrived on 20 mL 1% XYLOCAINE via Subcutaneous. 15:19:26 50 mcg FENTANYL given in lab by Federico Nation, RN in Right Antecubital via Peripheral IV. Or dered by Erick Echavarria. 15:20:01 Access site was Right Radial Artery . A SHEATH, FR6 RADIAL PRELUDE EASE 11CM FR 6 was advanced into the Radial (right) using the Perc utaneous 15:20:20 technique. 15:21:34 HR=76 bpm, MPYC=751/71 mmhg, SpO2=98.0 %, Resp=15 B/min 5 mL (Bolus) RADIAL COCKTAIL given in lab by Jericho, Erick in Right Radial via Radial. Using [So lution Name]. Ordered 15:22:35 by Erick Echavarria. Reason: Ntg 200mcg Verapamil 2.5mg Heparin 2500U. 15:23:45 Reference ECG taken A CATHETER, FR5 OPTITORQUE RADIAL TIG 4.0 FR 5 was advanced over a wire. OMNIPAQUE, 350 MG, 150 ML 150ML 15:24:27 was used for injections. Recorded Pressure: Ao, HR=79, Condition=Condition 1 15:24:58 (Aorta) Ao 140/68/95 15:25:59 The RCA was injected and visualized at various angles. OMNIPAQUE, 350 MG, 150ML 150ML used . After removing the current catheter a JL 3.5 INFINITI CATHETER FR 5 was advanced over a WIRE, E XCHANGE 260CM 15:26:22 3MMJ 260CM. 15:26:27 HR=83 bpm, QOIC=249/72 mmhg, SpO2=96.0 %, Resp=13 B/min 15:28:09 The LCA was injected and visualized at various angles. OMNIPAQUE, 350 MG, 150ML 150ML used . After removing the current catheter a JL 3.5 DXTERITY CATHETER FR 6 was advanced over a WIRE, E XCHANGE 260CM 15:29:19 3MMJ 260CM. 15:30:30 The LCA was injected and visualized at various angles. OMNIPAQUE, 350 MG, 150ML 150ML used . 15:32:13 HR=84 bpm, TKGB=426/74 mmhg, SpO2=96.0 %, Resp=17 B/min 15:34:31 Catheter was removed A PIGTAIL STR. INFINITI CATHETER FR 5 was advanced over a wire. OMNIPAQUE, 350 MG, 50ML 50ML wa s used for 15:35:23 injections. 15:36:37 HR=82 bpm, GYQQ=839/75 mmhg, SpO2=97.0 %, Resp=15 B/min 15:36:39 Catheter was removed A MPA-2 INFINITI CATHETER FR 6 was advanced over a wire. OMNIPAQUE, 350 MG, 50ML 50ML was used for 15:38:20 injections. After removing the current catheter a PIGTAIL ANG. 145 INFINITI CATHETER FR 6 was advanced over a WIRE, 15:40:20 EXCHANGE 260CM 3MMJ 260CM. 15:41:36 HR=80 bpm, DZCN=348/76 mmhg, SpO2=97.0 %, Resp=16 B/min After removing the current catheter a CATHETER, FR5 OPTITORQUE RADIAL TIG 4.0 FR 5 was advanced over a WIRE, 15:44:50 EXCHANGE 260CM 3MMJ 260CM. Recorded Pressure: LV, HR=84, Condition=Condition 1 15:45:51 (Left Ventricle) LV 180/21/24 15:46:13 The LV was manually injected with 10 cc's and visualized. OMNIPAQUE, 350 MG, 150ML 150ML us ed. 15:46:33 HR=81 bpm, PRSX=453/84 mmhg, SpO2=97.0 %, Resp=16 B/min 15:47:40 A WIRE, EXCHANGE 260CM 3MMJ 260CM was inserted via Radial (right). A PIGTAIL STR. INFINITI CATHETER FR 5 was advanced over a wire. OMNIPAQUE, 350 MG, 50ML 50ML wa s used for 15:48:26 injections. 15:51:32 The LV was injected at 12 cc/sec for a total of 42. OMNIPAQUE, 350 MG, 50ML 50ML used. 15:51:34 HR=78 bpm, LIVW=427/73 mmhg, SpO2=96.0 %, Resp=17 B/min Recorded Pressure: LV, Ao, HR=78, Condition=Condition 1 15:52:34 (Left Ventricle) LV 173/10/20, (Aorta) Ao 136/56/91 15:53:16 Catheter was removed A JL 3.5 GUIDE CATHETER FR 6 was advanced over a wire. OMNIPAQUE, 350 MG, 150ML 150ML was used for 15:54:05 injections. 15:55:40 The LCA was injected and visualized at various angles. OMNIPAQUE, 350 MG, 150ML 150ML used . 15:56:37 HR=80 bpm, FIGU=539/76 mmhg, SpO2=96.0 %, Resp=18 B/min 15:57:34 Catheter was removed 15:58:18 Case End (Physician broke scrub) Radial Compression Device Used. 15 mLs of air placed in BAND, RADIAL COMPRESSION TR LARGE 29 29 CM. Affected 15:58:53 hand 96 % O2 saturation. 16:01:36 HR=82 bpm, ZTGX=911/85 mmhg, SpO2=97.0 %, Resp=16 B/min Assessment: Final Case, HR=82 BPM, Rhythm=sr, PAXX=914/85 mmhg Right Pulses: Lizandro Ped=1, Femoral=1, Radial=2 16:01:57 Left Pulses: Lizandro Ped=1 Neurological: State=Alert, Ox3, CALERO Respiration: Resp=16 B/min, SpO2=96 %, O2=4 lpm 16:06:00 Vitals capture stopped. 16:09:43 Patient moved to BED 16:12:55 Patient transported to DOCU. End Study - Contrast Media Used In Study Contrast Total Opened (mL) Total Used (mL) Total Wasted (mL) Omnipaque 350 253 253 0 End Study - Maximum Contrast Load Max Contrast Load (mL) 628.8 End Study - Radiation Exposure Fluoro Time Fluoro Dose (mGy) Cine Dose (uGym2) (minutes) 9.9 4029 05363 End Study - Sheaths Sheaths Pulled By Sheath Hold Time (min) Racquel Macedo End Study - Patient Disposition Complications Transferred To Interventional Outcome No Telemetry Bed No attempt made
--- NOTE | 2018-03-14 16:39 | MA ---
cc: Erick Echavarria MD DATE: 03/14/2018 PROCEDURES: 1. Left heart catheterization. 2. Selective coronary angiography. 3. Left ventriculography. PROCEDURE NOTES: The patient was brought to the cardiac catheterization laboratory in a fasting state after having signed informed consent. The right radial region was prepped and draped as per policy and anesthetized with 1% lidocaine. Arterial access was obtained via the right radial artery and a 6-Armenian sheath placed. Coronary arteriography was performed using a Arnett catheter to engage the right coronary. Initial shots of the left coronary system were done with a Pedro left 3.5. Because visualization was somewhat difficult, we also took additional shots with a Pedro left 3.5 guiding catheter. Left ventriculography was done using a standard 6-Armenian pigtail. There were no apparent immediate complications. A radial artery compression band was applied to his right wrist at the end of the case to achieve good hemostasis. HEMODYNAMIC DATA: Left ventricle 170 with an end diastolic pressure of 20, aorta 140/56 with a mean of 90. There was an approximately 30 mmHg gradient across the aortic valve on pullback of the pigtail catheter. CORONARY ARTERIOGRAPHY: The left main has up to 20% distal tapering. The left anterior descending is a tortuous vessel giving rise to a tiny diagonal. A stent is evident in the proximal LAD, and the stent is widely patent. The mid LAD has minimal luminal irregularities. The distal LAD is diffusely diseased probably up to 40% to 50% severity. Most of the diagonal territory is supplied by a branching ramus intermedius. There is diffuse proximal to mid disease of the more lateral branch of this ramus intermedius. There is up to 80% stenosis in the mid section where the vessel is small in caliber. A more distal branch has 85% stenosis at its origin. A very small medial branch of the ramus intermedius is subtotally occluded at its origin. The left circumflex is somewhat difficult to visualize. It has a tortuous bend very proximally. In the region of this bend, in the proximal left circumflex, there is diffuse disease extending into the origin of the obtuse marginal. The severity of the disease probably approaches 75% severity. Again, this disease extends to the origin of the obtuse marginal, which is a medium-sized vessel. The right coronary artery is a very large dominant vessel, which is diffusely diseased. There is likely up to 50% stenosis proximally, 50% in its midsection, and 30% to 40% disease distally prior to the takeoff of the posterior descending artery. Past the takeoff of the posterior descending artery, there is diffuse up to 50% stenosis of the right coronary. Two tiny posterolateral branches are subtotally occluded at their origin. LEFT VENTRICULOGRAPHY: Contrast injection of the left ventricle reveals no definite segmental wall motion abnormalities. Estimated ejection fraction is 55%. CONCLUSIONS: 1. Moderate to severe 3-vessel coronary artery disease. 2. Right dominant system. 3. Normal left ventricular function with estimated ejection fraction of 55%. 4. Possible moderate aortic stenosis. DISCUSSION: The severe disease in the proximal left circumflex will be treated medically. There is a tortuous bend in this region, and the disease is diffuse. The disease in the ramus intermedius will also be treated medically. The disease is diffuse. The vessel is also relatively small in caliber from its mid to distal portion. MD JESSICA Martínez/leandra , 04:10 PM , 04:18 PM BRYCE
--- NOTE | 2018-03-14 17:03 | P.PNPOD ---
Subjective Interval history: Attempted to see patient, patient in central lab technician. Physical Exam Vital signs: Vital Signs 03/13/18 17:09 03/13/18 17:24 03/13/18 17:39 Temperature Pulse Rate 92 H 91 H 91 H Respiratory Rate 17 14 16 Blood Pressure 162/71 H 160/72 H 165/74 H Pulse Oximetry 98 98 98 03/13/18 17:54 03/13/18 18:00 03/13/18 18:09 Temperature Pulse Rate 95 H 96 H 95 H Respiratory Rate 28 H 31 H 17 Blood Pressure 166/77 H 164/75 H Pulse Oximetry 98 98 97 03/13/18 18:24 03/13/18 18:39 03/13/18 18:47 Temperature Pulse Rate 94 H 93 H 97 H Respiratory Rate 16 17 24 Blood Pressure 174/77 H 167/62 H Pulse Oximetry 98 97 97 03/13/18 18:55 03/13/18 19:00 03/13/18 20:00 Temperature 98 F Pulse Rate 94 H 94 H Respiratory Rate 10 L 29 H Blood Pressure 172/87 H 146/56 H 156/72 H Pulse Oximetry 98 97 03/13/18 21:00 03/13/18 22:00 03/13/18 23:00 Temperature Pulse Rate 93 H 95 H 92 H Respiratory Rate 22 21 14 Blood Pressure 176/74 H 165/72 H 186/84 H Pulse Oximetry 97 98 96 03/13/18 23:12 03/13/18 23:32 03/14/18 00:00 Temperature 98.2 F Pulse Rate 93 H 87 81 Respiratory Rate 14 0 L 9 L Blood Pressure 183/86 H 168/76 H Pulse Oximetry 96 96 96 03/14/18 00:10 03/14/18 01:00 03/14/18 01:10 Temperature Pulse Rate 72 81 77 Respiratory Rate 8 L 24 12 Blood Pressure 173/79 H 179/73 H Pulse Oximetry 96 97 98 03/14/18 02:00 03/14/18 02:10 03/14/18 03:00 Temperature Pulse Rate 71 72 83 Respiratory Rate 12 9 L 24 Blood Pressure 155/70 H Pulse Oximetry 96 96 98 03/14/18 03:10 03/14/18 03:20 03/14/18 03:28 Temperature Pulse Rate 75 75 76 Respiratory Rate 13 11 L 4 L Blood Pressure 188/77 H 192/81 H 185/83 H Pulse Oximetry 97 98 97 03/14/18 04:00 03/14/18 04:10 03/14/18 04:19 Temperature 98.1 F Pulse Rate 78 79 78 Respiratory Rate 15 0 L 11 L Blood Pressure 201/87 H 202/90 H Pulse Oximetry 97 97 97 03/14/18 04:30 03/14/18 04:32 03/14/18 04:36 Temperature Pulse Rate 73 68 Respiratory Rate 14 18 11 L Blood Pressure 202/88 H 192/81 H Pulse Oximetry 95 03/14/18 04:46 03/14/18 05:00 03/14/18 05:01 Temperature Pulse Rate 68 66 66 Respiratory Rate 11 L 13 12 Blood Pressure 188/81 H 177/75 H Pulse Oximetry 03/14/18 05:16 03/14/18 05:34 03/14/18 05:44 Temperature Pulse Rate 66 66 67 Respiratory Rate 0 L 13 11 L Blood Pressure 157/68 H 156/70 H 143/66 H Pulse Oximetry 98 98 03/14/18 05:54 03/14/18 06:00 03/14/18 06:04 Temperature Pulse Rate 65 67 66 Respiratory Rate 13 13 13 Blood Pressure 149/67 H 148/64 H Pulse Oximetry 97 97 97 03/14/18 06:14 03/14/18 06:24 03/14/18 06:34 Temperature Pulse Rate 67 66 67 Respiratory Rate 15 14 14 Blood Pressure 153/68 H 151/57 H 144/64 H Pulse Oximetry 98 97 97 03/14/18 06:44 03/14/18 06:54 03/14/18 07:00 Temperature Pulse Rate 67 68 68 Respiratory Rate 13 14 14 Blood Pressure 141/63 H 142/62 H Pulse Oximetry 97 97 96 03/14/18 07:04 03/14/18 07:14 03/14/18 07:24 Temperature Pulse Rate 68 69 69 Respiratory Rate 14 0 L 0 L Blood Pressure 143/64 H 136/65 143/67 H Pulse Oximetry 96 97 97 03/14/18 07:34 03/14/18 07:44 03/14/18 07:54 Temperature 98.2 F Pulse Rate 77 69 71 Respiratory Rate 19 11 L 13 Blood Pressure 140/63 114/58 L 142/65 H Pulse Oximetry 98 98 97 03/14/18 08:00 03/14/18 08:33 03/14/18 09:00 Temperature Pulse Rate 74 76 75 Respiratory Rate 15 13 Blood Pressure 135/63 Pulse Oximetry 98 94 L 92 L 03/14/18 10:00 03/14/18 10:08 03/14/18 10:15 Temperature Pulse Rate 72 76 77 Respiratory Rate 16 12 13 Blood Pressure 152/72 H 158/72 H Pulse Oximetry 99 99 98 03/14/18 10:30 03/14/18 10:45 03/14/18 10:47 Temperature Pulse Rate 77 78 Respiratory Rate 24 21 14 Blood Pressure 149/67 H 152/67 H Pulse Oximetry 97 98 03/14/18 11:00 03/14/18 11:15 03/14/18 11:30 Temperature Pulse Rate 74 74 75 Respiratory Rate 0 L 0 L 5 L Blood Pressure 149/65 H 148/66 H 146/55 H Pulse Oximetry 97 96 96 03/14/18 11:45 03/14/18 12:00 03/14/18 12:15 Temperature 99.1 F Pulse Rate 75 75 77 Respiratory Rate 14 15 14 Blood Pressure 149/65 H 154/67 H 165/74 H Pulse Oximetry 95 96 96 03/14/18 12:30 03/14/18 12:45 03/14/18 13:00 Temperature Pulse Rate 75 73 76 Respiratory Rate 14 13 28 H Blood Pressure 161/61 H 155/71 H 152/70 H Pulse Oximetry 97 97 99 03/14/18 13:15 03/14/18 13:30 03/14/18 13:35 Temperature Pulse Rate 72 74 76 Respiratory Rate 20 18 21 Blood Pressure 158/71 H 171/77 H Pulse Oximetry 97 98 93 L 03/14/18 13:45 03/14/18 14:00 03/14/18 14:15 Temperature Pulse Rate 72 71 Respiratory Rate 13 13 Blood Pressure 174/76 H 177/79 H 176/78 H Pulse Oximetry 98 98 03/14/18 16:21 Temperature Pulse Rate Respiratory Rate Blood Pressure Pulse Oximetry 99 Intake & Output 03/13/18 03/14/18 03/14/18 18:59 06:59 18:59 Intake Total 500 / 500 500 / 500 Balance 500 / 500 500 / 500 Weight 152.6 kg 150.7 kg Intake: IV 500 / 500 Heparin/D5W 25,000 U/250 mL 25, 250 / 250 000 unit In 250 ml @ Per Protocol 10 mls/hr IV.CONT TITRATE PRN Rx#:[id number] Nitroglycerin Drip Premix 50 mg 250 / 250 In 250 ml @ Per Protocol IV. CONT TITRATE PRN Rx#:[id number] Oral 500 / 500 Other: # Voids 1 3 Date of Last Bowel Movement 03/12/18 03/12/18 03/12/18 Weight On Admission 152.6 kg Medications and Allergies Active Medications: Active Medications Acetaminophen (Tylenol) 650 mg PO Q4H PRN PRN Reason: Temp > 100.4 Last Admin: 03/14/18 09:24 Dose: 650 mg Acetaminophen (Tylenol) 650 mg PO Q6HR PRN PRN Reason: PAIN SCALE 1 TO 2 Hydrocodone Bitart/Acetaminophen ([place] 5/325) 1 tab PO Q4H PRN PRN Reason: pain 3 - 5 Last Admin: 03/14/18 05:23 Dose: 1 tab Al Hydroxide/Mg Hydroxide (Milk Of [place]) 30 ml PO Q12H PRN PRN Reason: Mild Constipation Amlodipine Besylate (Norvasc) 10 mg PO DAILY [facility] Aspirin (Ecotrin) 81 mg PO DAILY [facility] Last Admin: 03/14/18 08:32 Dose: 81 mg Atorvastatin Calcium (Lipitor) 80 mg PO DAILY [facility] Last Admin: 03/14/18 08:31 Dose: 80 mg Carvedilol (Coreg) 25 mg PO BID [facility] Clopidogrel Bisulfate (Plavix) 75 mg PO DAILY [facility] Last Admin: 03/14/18 08:32 Dose: 75 mg Dextrose (D50w Vial) 50 ml IV.PUSH UNSCH PRN PRN Reason: PER HYPOGLYCEMIA PROTOCOL Diphenhydramine HCl (Benadryl) 50 mg PO GRILL CHEF [facility] Stop: 03/18/18 07:59 Fentanyl Citrate (Fentanyl Inj) 50 mcg IV.PUSH GRILL CHEF [facility] Stop: 03/18/18 07:59 Furosemide (Lasix) 40 mg PO DAILY [facility] Gabapentin (Neurontin) 300 mg PO TID [facility] Last Admin: 03/14/18 12:56 Dose: 300 mg Gemfibrozil (Lopid) 600 mg PO BID [facility] Last Admin: 03/14/18 08:31 Dose: 600 mg Glucagon (Glucagon Inj) 1 mg OTHER PRN PRN PRN Reason: for Hypoglycemia Protocol Sodium Chloride (Ns Inj) 1,000 mls @ 100 mls/hr IV.CONT .Q10H [facility] Last Admin: 03/14/18 08:40 Dose: 100 mls/hr Sodium Chloride (Ns Inj) 1,000 mls @ 100 mls/hr IV.CONT .Q10H [facility] Insulin Aspart (Novolog Insulin Correctional Sugar Inj) 0 unit SQ ACHS [facility]; Protocol Last Admin: 03/14/18 13:53 Dose: Not Given Insulin Detemir (Levemir Inj) 45 unit SQ BID [facility] Last Admin: 03/14/18 08:31 Dose: 45 unit Isosorbide Mononitrate (Imdur) 120 mg PO DAILY@0700 [facility] Lisinopril (Prinivil) 20 mg PO DAILY [facility] Midazolam HCl (Versed Inj) 1 mg IV.PUSH GRILL CHEF [facility] Stop: 03/18/18 07:59 Morphine Sulfate (Morphine Inj) 2 mg IV.PUSH Q3H PRN PRN Reason: pain 6 - 10 Last Admin: 03/14/18 10:09 Dose: 2 mg Naloxone HCl (Narcan Inj) 0.4 mg IV.PUSH UNSCH PRN PRN Reason: SEE LABEL COMMENTS Nitroglycerin (Nitrostat Sl) 0.4 mg SL Q5M PRN PRN Reason: CHEST PAIN Ondansetron HCl (Zofran Inj) 4 mg IV.PUSH Q6H PRN PRN Reason: NAUSEA OR VOMITING Sodium Chloride (Ns Flush) 2 ml IV.FLUSH BID [facility] Last Admin: 03/14/18 08:32 Dose: 2 ml Sodium Chloride (Ns Flush) 2 ml IV.FLUSH PRN PRN PRN Reason: FLUSH AFTER USING IV ACCESS Allergies Allergy/AdvReac Type Severity Reaction Status Date / Time amoxicillin Allergy Severe Hives Verified 03/13/18 13:43 losartan Allergy Hives Verified 03/13/18 13:43 Home Medications Medication Instructions Recorded Confirmed Type GlucaGen HypoKit 03/13/18 History amlodipine 10 mg PO DAILY 03/13/18 03/13/18 History aspirin [Aspir-81] 81 mg PO DAILY 03/13/18 03/13/18 History atorvastatin 80 mg PO DAILY 03/13/18 03/13/18 History carvedilol 12.5 mg PO BID 03/13/18 03/13/18 History clopidogrel [Plavix] 75 mg PO DAILY 03/13/18 03/13/18 History duloxetine 80 mg PO DAILY 03/13/18 03/13/18 History furosemide 40 mg PO DAILY 03/13/18 03/13/18 History gabapentin 300 mg PO TID 03/13/18 03/13/18 History gemfibrozil 600 mg PO BID 03/13/18 03/13/18 History glipizide 5 mg PO DAILY 03/13/18 03/13/18 History insulin aspart U-100 [Novolog 22 units SUBCUT PRN 03/13/18 History PenFill U-100 Insulin] insulin glargine [Lantus U-100 45 unit SUBCUT BID 03/13/18 03/13/18 History Insulin] insulin glargine [Lantus U-100 90 unit SUBCUT BID 03/13/18 03/13/18 History Insulin] isosorbide mononitrate 90 mg PO QAM 03/13/18 03/13/18 History lisinopril 20 mg PO DAILY 03/13/18 03/13/18 History lisinopril 20 mg PO DAILY 03/13/18 03/13/18 History magnesium oxide 400 mg PO BID 03/13/18 03/13/18 History metformin 1,000 mg PO BID 03/13/18 03/13/18 History niacin 1,500 mg PO QAM 03/13/18 03/13/18 History nitroglycerin 0.4 mg SUBLINGUAL Q5-15M PRN 03/13/18 03/13/18 History vitamin B complex 1 tab PO DAILY 03/13/18 03/13/18 History Results - Labs CBC & Chem 7: 03/14/18 01:55 03/14/18 01:55 Laboratory Results - last 24 hr 03/13/18 03/13/18 03/13/18 17:00 19:11 19:11 WBC RBC Hgb Hct MCV MCH MCHC RDW Plt Count MPV Neut % (Auto) Lymph % (Auto) [place] % (Auto) Eos % (Auto) Baso % (Auto) Neut # (Auto) Lymph # (Auto) [place] # (Auto) Eos # (Auto) Baso # (Auto) WBC Differential Differential Comment PT 9.8 INR 1.0 APTT 24.4 Sodium Potassium Chloride Carbon Dioxide Anion Gap BUN Creatinine Estimated GFR POC Glucose 176 H Random Glucose Calcium Total Bilirubin AST ALT Alkaline Phosphatase Total Creatine Kinase 188 Troponin I 4.02 H* Total Protein Albumin Triglycerides Cholesterol LDL Cholesterol, Calc HDL Cholesterol Cholesterol/HDL Ratio 03/13/18 03/14/18 03/14/18 20:23 01:55 01:55 WBC 6.9 RBC 4.22 L Hgb 9.6 L Hct 31.7 L MCV 75.1 L MCH 22.7 L MCHC 30.2 L RDW 19.3 H Plt Count 241 MPV 7.2 Neut % (Auto) 52.9 Lymph % (Auto) 30.7 [place] % (Auto) 11.5 H Eos % (Auto) 3.6 Baso % (Auto) 1.3 Neut # (Auto) 3.7 Lymph # (Auto) 2.1 [place] # (Auto) 0.8 Eos # (Auto) 0.2 Baso # (Auto) 0.1 WBC Differential . Differential Comment Auto diff final PT INR APTT 29.4 D Sodium Potassium Chloride Carbon Dioxide Anion Gap BUN Creatinine Estimated GFR POC Glucose 212 H Random Glucose Calcium Total Bilirubin AST ALT Alkaline Phosphatase Total Creatine Kinase Troponin I Total Protein Albumin Triglycerides Cholesterol LDL Cholesterol, Calc HDL Cholesterol Cholesterol/HDL Ratio 03/14/18 03/14/18 03/14/18 01:55 07:56 08:25 WBC RBC Hgb Hct MCV MCH MCHC RDW Plt Count MPV Neut % (Auto) Lymph % (Auto) [place] % (Auto) Eos % (Auto) Baso % (Auto) Neut # (Auto) Lymph # (Auto) [place] # (Auto) Eos # (Auto) Baso # (Auto) WBC Differential Differential Comment PT INR APTT 30.1 Sodium 140 Potassium 4.1 Chloride 106 Carbon Dioxide 27.3 Anion Gap 7 BUN 22 H Creatinine 1.20 Estimated GFR 61 L POC Glucose 217 H Random Glucose 127 H D Calcium 8.3 L Total Bilirubin 0.5 AST 30 ALT 18 Alkaline Phosphatase 87 Total Creatine Kinase Troponin I Total Protein 7.2 D Albumin 3.4 Triglycerides 132 Cholesterol 124 LDL Cholesterol, Calc 46 HDL Cholesterol 51.3 Cholesterol/HDL Ratio 2.41 03/14/18 03/14/18 09:52 12:42 WBC RBC Hgb Hct MCV MCH MCHC RDW Plt Count MPV Neut % (Auto) Lymph % (Auto) [place] % (Auto) Eos % (Auto) Baso % (Auto) Neut # (Auto) Lymph # (Auto) [place] # (Auto) Eos # (Auto) Baso # (Auto) WBC Differential Differential Comment PT INR APTT Sodium Potassium Chloride Carbon Dioxide Anion Gap BUN Creatinine Estimated GFR POC Glucose 214 H 202 H Random Glucose Calcium Total Bilirubin AST ALT Alkaline Phosphatase Total Creatine Kinase Troponin I Total Protein Albumin Triglycerides Cholesterol LDL Cholesterol, Calc HDL Cholesterol Cholesterol/HDL Ratio
[2018-03-14] MEDS ORDERED: Gabapentin 300 MG Capsule PO SCH (18:33)
[2018-03-14] MEDS ORDERED: Carvedilol 12.5 MG Tablet PO SCH (21:00)
[2018-03-14] MEDS: Carvedilol 12.5 MG Tablet PO SCH (21:04)
[2018-03-15 06:04] LABS: Hematocrit 30.4 % (39.0-51.0); Hemoglobin 9.3 gm/dL (13.0-17.0); Mean Corpuscular Hemoglobin 22.7 pg (27.0-34.0); Mean Corpuscular Volume 74.5 fL (80.0-100.0); Mean Platelet Volume 7.4 fL (7.0-11.0); Platelet Count 231 th/mm3 (150-450); Red Blood Count 4.08 mil/mm3 (4.50-5.90); White Blood Count 7.2 th/mm3 (4.0-11.0)
[2018-03-15 06:11] LABS: Mean Corpuscular HGB Conc 30.4 % (32.0-36.0)
[2018-03-15] MEDS: Sod Chloride 0.9% Inj 1,000 ML IV.CONT SCH ×2 (06:12→09:04)
[2018-03-15 06:26] LABS: Calcium 8.5 mg/dL (8.5-10.1); Carbon Dioxide 27.8 meq/L (21.0-32.0)
[2018-03-15] MEDS ORDERED: Isosorbide Mononitrate 60 MG ER 24HR Tablet (Imdur) PO SCH (07:00)
--- NOTE | 2018-03-15 08:27 | P.PNCA ---
Subjective Interval history: Feels "great". Denies angina, dyspnea, dizziness, wrist pain, palpitations. Medications and Allergies Active Medications: Active Medications Acetaminophen (Tylenol) 650 mg PO Q4H PRN PRN Reason: Temp > 100.4 Last Admin: 03/14/18 09:24 Dose: 650 mg Acetaminophen (Tylenol) 650 mg PO Q6HR PRN PRN Reason: PAIN SCALE 1 TO 2 Hydrocodone Bitart/Acetaminophen ([place] 5/325) 1 tab PO Q4H PRN PRN Reason: pain 3 - 5 Last Admin: 03/14/18 05:23 Dose: 1 tab Al Hydroxide/Mg Hydroxide (Milk Of [place]) 30 ml PO Q12H PRN PRN Reason: Mild Constipation Amlodipine Besylate (Norvasc) 10 mg PO DAILY [facility] Aspirin (Ecotrin) 81 mg PO DAILY [facility] Last Admin: 03/14/18 08:32 Dose: 81 mg Atorvastatin Calcium (Lipitor) 80 mg PO DAILY [facility] Last Admin: 03/14/18 08:31 Dose: 80 mg Carvedilol (Coreg) 25 mg PO BID [facility] Last Admin: 03/14/18 21:04 Dose: 25 mg Clopidogrel Bisulfate (Plavix) 75 mg PO DAILY [facility] Last Admin: 03/14/18 08:32 Dose: 75 mg Dextrose (D50w Vial) 50 ml IV.PUSH UNSCH PRN PRN Reason: PER HYPOGLYCEMIA PROTOCOL Diphenhydramine HCl (Benadryl) 50 mg PO [employer] [facility] Stop: 03/18/18 07:59 Fentanyl Citrate (Fentanyl Inj) 50 mcg IV.PUSH [employer] [facility] Stop: 03/18/18 07:59 Furosemide (Lasix) 40 mg PO DAILY [facility] Gabapentin (Neurontin) 900 mg PO TID [facility] Gemfibrozil (Lopid) 600 mg PO BID [facility] Last Admin: 03/14/18 21:04 Dose: 600 mg Glucagon (Glucagon Inj) 1 mg OTHER PRN PRN PRN Reason: for Hypoglycemia Protocol Sodium Chloride (Ns Inj) 1,000 mls @ 100 mls/hr IV.CONT .Q10H [facility] Last Admin: 03/15/18 06:12 Dose: Not Given Sodium Chloride (Ns Inj) 1,000 mls @ 100 mls/hr IV.CONT .Q10H [facility] Last Admin: 03/14/18 17:33 Dose: 100 mls/hr Insulin Aspart (Novolog Insulin Correctional Sugar Inj) 0 unit SQ ACHS [facility]; Protocol Last Admin: 03/14/18 21:23 Dose: 2 unit Insulin Detemir (Levemir Inj) 45 unit SQ BID [facility] Last Admin: 03/14/18 21:06 Dose: 45 unit Isosorbide Mononitrate (Imdur) 120 mg PO DAILY@0700 [facility] Last Admin: 03/15/18 06:01 Dose: 120 mg Lisinopril (Prinivil) 20 mg PO DAILY [facility] Midazolam HCl (Versed Inj) 1 mg IV.PUSH [employer] [facility] Stop: 03/18/18 07:59 Morphine Sulfate (Morphine Inj) 2 mg IV.PUSH Q3H PRN PRN Reason: pain 6 - 10 Last Admin: 03/14/18 10:09 Dose: 2 mg Naloxone HCl (Narcan Inj) 0.4 mg IV.PUSH UNSCH PRN PRN Reason: SEE LABEL COMMENTS Nitroglycerin (Nitrostat Sl) 0.4 mg SL Q5M PRN PRN Reason: CHEST PAIN Ondansetron HCl (Zofran Inj) 4 mg IV.PUSH Q6H PRN PRN Reason: NAUSEA OR VOMITING Sodium Chloride (Ns Flush) 2 ml IV.FLUSH BID [facility] Last Admin: 03/14/18 21:04 Dose: 2 ml Sodium Chloride (Ns Flush) 2 ml IV.FLUSH PRN PRN PRN Reason: FLUSH AFTER USING IV ACCESS Allergies Allergy/AdvReac Type Severity Reaction Status Date / Time amoxicillin Allergy Severe Hives Verified 03/13/18 13:43 losartan Allergy Hives Verified 03/13/18 13:43 Home Medications Medication Instructions Recorded Confirmed Type GlucaGen HypoKit 03/13/18 History amlodipine 10 mg PO DAILY 03/13/18 03/13/18 History aspirin [Aspir-81] 81 mg PO DAILY 03/13/18 03/13/18 History atorvastatin 80 mg PO DAILY 03/13/18 03/13/18 History carvedilol 12.5 mg PO BID 03/13/18 03/13/18 History clopidogrel [Plavix] 75 mg PO DAILY 03/13/18 03/13/18 History duloxetine 80 mg PO DAILY 03/13/18 03/13/18 History furosemide 40 mg PO DAILY 03/13/18 03/13/18 History gabapentin 300 mg PO TID 03/13/18 03/13/18 History gemfibrozil 600 mg PO BID 03/13/18 03/13/18 History glipizide 5 mg PO DAILY 03/13/18 03/13/18 History insulin aspart U-100 [Novolog 22 units SUBCUT PRN 03/13/18 History PenFill U-100 Insulin] insulin glargine [Lantus U-100 45 unit SUBCUT BID 03/13/18 03/13/18 History Insulin] insulin glargine [Lantus U-100 90 unit SUBCUT BID 03/13/18 03/13/18 History Insulin] isosorbide mononitrate 90 mg PO QAM 03/13/18 03/13/18 History lisinopril 20 mg PO DAILY 03/13/18 03/13/18 History lisinopril 20 mg PO DAILY 03/13/18 03/13/18 History magnesium oxide 400 mg PO BID 03/13/18 03/13/18 History metformin 1,000 mg PO BID 03/13/18 03/13/18 History niacin 1,500 mg PO QAM 03/13/18 03/13/18 History nitroglycerin 0.4 mg SUBLINGUAL Q5-15M PRN 03/13/18 03/13/18 History vitamin B complex 1 tab PO DAILY 03/13/18 03/13/18 History Physical Exam Vital signs: Vital Signs 03/14/18 08:33 03/14/18 09:00 03/14/18 10:00 Temperature Pulse Rate 76 75 72 Respiratory Rate 13 16 Blood Pressure 135/63 Pulse Oximetry 94 L 92 L 99 03/14/18 10:08 03/14/18 10:15 03/14/18 10:30 Temperature Pulse Rate 76 77 77 Respiratory Rate 12 13 24 Blood Pressure 152/72 H 158/72 H 149/67 H Pulse Oximetry 99 98 97 03/14/18 10:45 03/14/18 10:47 03/14/18 11:00 Temperature Pulse Rate 78 74 Respiratory Rate 21 14 0 L Blood Pressure 152/67 H 149/65 H Pulse Oximetry 98 97 03/14/18 11:15 03/14/18 11:30 03/14/18 11:45 Temperature Pulse Rate 74 75 75 Respiratory Rate 0 L 5 L 14 Blood Pressure 148/66 H 146/55 H 149/65 H Pulse Oximetry 96 96 95 03/14/18 12:00 03/14/18 12:15 03/14/18 12:30 Temperature 99.1 F Pulse Rate 75 77 75 Respiratory Rate 15 14 14 Blood Pressure 154/67 H 165/74 H 161/61 H Pulse Oximetry 96 96 97 03/14/18 12:45 03/14/18 13:00 03/14/18 13:15 Temperature Pulse Rate 73 76 72 Respiratory Rate 13 28 H 20 Blood Pressure 155/71 H 152/70 H 158/71 H Pulse Oximetry 97 99 97 03/14/18 13:30 03/14/18 13:35 03/14/18 13:45 Temperature Pulse Rate 74 76 Respiratory Rate 18 21 Blood Pressure 171/77 H 174/76 H Pulse Oximetry 98 93 L 03/14/18 14:00 03/14/18 14:15 03/14/18 16:21 Temperature Pulse Rate 72 71 Respiratory Rate 13 13 Blood Pressure 177/79 H 176/78 H Pulse Oximetry 98 98 99 03/14/18 17:43 03/14/18 19:00 03/14/18 20:00 Temperature 98.2 F Pulse Rate 78 76 78 Respiratory Rate 14 Blood Pressure 162/67 H Pulse Oximetry 99 03/14/18 21:00 03/14/18 22:00 03/14/18 23:00 Temperature Pulse Rate 80 74 82 Respiratory Rate Blood Pressure Pulse Oximetry 03/15/18 00:00 03/15/18 01:00 03/15/18 02:00 Temperature 98.2 F Pulse Rate 80 68 72 Respiratory Rate 14 Blood Pressure 162/67 H Pulse Oximetry 99 03/15/18 03:00 03/15/18 04:00 03/15/18 05:00 Temperature 98.2 F Pulse Rate 68 68 68 Respiratory Rate 16 Blood Pressure 145/69 H Pulse Oximetry 94 L 03/15/18 06:00 Temperature Pulse Rate 70 Respiratory Rate Blood Pressure Pulse Oximetry Intake & Output 03/14/18 03/15/18 03/15/18 18:59 06:59 18:59 Intake Total 1999 480 / 480 Output Total 1225 / 1225 Balance 1999 -745 / -745 Weight 148.5 kg Intake: IV 2000 / 2000 Heparin/D5W 25,000 U/250 mL 25, 500 / 500 000 unit In 250 ml @ Per Protocol 10 mls/hr IV.CONT TITRATE PRN Rx#:[id number] Nitroglycerin Drip Premix 50 mg 500 / 500 In 250 ml @ Per Protocol IV. CONT TITRATE PRN Rx#:[id number] NS Inj 1,000 ML @ 100 mls/hr IV 1000 / 1000 .CONT .Q10H [facility] Rx#:[id number] Oral 480 / 480 Output: Urine 1225 / 1225 Other: Date of Last Bowel Movement 03/12/18 - Constitutional no acute distress - Routine Neck Exam Absent: JVD - Routine Respiratory Exam Present: CTA bilaterally - Routine Cardiovascular Exam Present: RRR, S1, S2, murmur. Absent: gallop Comments: II/ [place] base with normal S2. - Routine Abdominal Exam Present: soft, normoactive bowel sounds. Absent: tenderness, organomegaly - Routine Extremities Exam Absent: cyanosis, clubbing, edema Comments: Right radial arteriotomy site stable, no hematoma. Normal radial pulse. Results 03/15/18 05:20 03/15/18 05:00 Cardiac Enzymes 03/13/18 03/13/18 03/14/18 Range/Units 15:40 19:11 01:55 AST 30 (15-37) U/L Troponin I 2.62 H* 4.02 H* (0.02-0.05) ng/mL Coagulation 03/13/18 03/14/18 03/14/18 Range/Units 19:11 01:55 08:25 PT 9.8 (9.8-11.6) sec APTT 24.4 29.4 D 30.1 (23.4-31.7) sec 03/14/18 Range/Units 20:41 PT (9.8-11.6) sec APTT 25.0 (23.4-31.7) sec Lipids 03/14/18 Range/Units 01:55 Triglycerides 132 (42-150) mg/dL Cholesterol 124 (120-200) mg/dL HDL Cholesterol 51.3 (40.0-60.0) mg/dL Cholesterol/HDL Ratio 2.41 Ratio CBC 03/14/18 03/15/18 Range/Units 01:55 05:20 WBC 6.9 7.2 (4.0-11.0) th/mm3 RBC 4.22 L 4.08 L (4.50-5.90) mil/mm3 Hgb 9.6 L 9.3 L (13.0-17.0) gm/dL Hct 31.7 L 30.4 L (39.0-51.0) % Plt Count 241 231 (150-450) th/mm3 Neut # (Auto) 3.7 (1.8-7.7) th/mm3 Lymph # (Auto) 2.1 (1.0-4.8) th/mm3 [place] # (Auto) 0.8 (0.0-0.9) th/mm3 Eos # (Auto) 0.2 (0.0-0.4) th/mm3 Baso # (Auto) 0.1 (0.0-0.2) th/mm3 Comprehensive Metabolic Panel 03/14/18 03/15/18 Range/Units 01:55 05:00 Sodium 140 141 (136-145) meq/L Potassium 4.1 4.0 (3.5-5.1) meq/L Chloride 106 105 (98-107) meq/L Carbon Dioxide 27.3 27.8 (21.0-32.0) meq/L BUN 22 H 21 H (7-18) mg/dL Creatinine 1.20 1.35 H (0.60-1.30) mg/dL Calcium 8.3 L 8.5 (8.5-10.1) mg/dL AST 30 (15-37) U/L ALT 18 (12-78) U/L Alkaline Phosphatase 87 (45-117) U/L Total Protein 7.2 D (6.4-8.2) g/dL Albumin 3.4 (3.4-5.0) g/dL Intake and Output 03/14/18 03/15/18 03/15/18 22:59 06:59 14:59 Intake Total 1500 / 1500 480 / 480 Output Total 1225 / 1225 Balance 1500 / 1500 -745 / -745 Intake: IV 1500 / 1500 Heparin/D5W 25,000 U/250 mL 25, 250 / 250 000 unit In 250 ml @ Per Protocol 10 mls/hr IV.CONT TITRATE PRN Rx#:[id number] Nitroglycerin Drip Premix 50 mg 250 / 250 In 250 ml @ Per Protocol IV. CONT TITRATE PRN Rx#:[id number] NS Inj 1,000 ML @ 100 mls/hr IV 1000 / 1000 .CONT .Q10H [facility] Rx#:[id number] Oral 480 / 480 Output: Urine 1225 / 1225 Other: Weight 148.5 kg Assessment and Plan - Assessment (1) Coronary artery disease Code(s): I25.10 - Atherosclerotic heart disease of [place] coronary artery without angina pectoris Status: Acute Plan: Stable overnight. Symptoms, cardiac enzymes consistent with acute NSTEMI. No further angina. Cath shows severe disease in proximal left circumflex and diffusely in ramus intermedius, both areas not readily amenable to PCI. Recommend medical therapy. Continue amlodipine and the increased doses of carvedilol and isosorbide. OK to discharge home if ambulating halls without difficulty. (2) Hypertension Code(s): I10 - Essential (primary) hypertension Status: Chronic Plan: BP's overall better. Recommend outpatient monitoring, medication adjustment by his PCP. (3) Hyperlipidemia Code(s): E78.5 - Hyperlipidemia, unspecified Status: Chronic Plan: Good lipid profile. Continue statin therapy. - Plan Code Status: full Discussed Condition With: patient (1) Coronary artery disease Qualifiers: Coronary Disease-Associated Artery/Lesion type: [place] artery [place] vs. transplanted heart: [place] heart Associated angina: with unstable angina Qualified Code(s): I25.110 - Atherosclerotic heart disease of [place] coronary artery with unstable angina pectoris (2) Hypertension Qualifiers: Hypertension type: essential hypertension Qualified Code(s): I10 - Essential (primary) hypertension (3) Hyperlipidemia Qualifiers: Hyperlipidemia type: mixed hyperlipidemia Qualified Code(s): E78.2 - Mixed hyperlipidemia
[2018-03-15] MEDS ORDERED: Furosemide 40 MG Tablet PO SCH (09:00)
[2018-03-15] MEDS ORDERED: amLODIPine 10 MG Tablet PO SCH (09:00)
[2018-03-15] MEDS ORDERED: Lisinopril 20 MG Tablet PO SCH (09:00)
[2018-03-15] MEDS: Insulin NovoLOG Aspart Correctional Sugar Inj SQ SCH (09:04)
[2018-03-15] MEDS: Carvedilol 12.5 MG Tablet PO SCH (09:10)
[2018-03-15] MEDS: Insulin Detemir Inj 1,000 UNIT/10 ML Vial SQ SCH (09:12)
[2018-03-15] MEDS: Gemfibrozil 600 MG Tablet PO SCH (09:12)
--- NOTE | 2018-03-15 11:06 | P.PN ---
Subjective Interval history: Follow-up non-ST elevation [place] March 15, 2018-patient seen and examined, denies any chest pain or shortness of breath. Looking forward to go home. No acute event overnight. Left heart catheterization and recommended medical management per cardiology. Physical Exam Vital signs: Vital Signs 03/14/18 11:15 03/14/18 11:30 03/14/18 11:45 Temperature Pulse Rate 74 75 75 Respiratory Rate 0 L 5 L 14 Blood Pressure 148/66 H 146/55 H 149/65 H Pulse Oximetry 96 96 95 03/14/18 12:00 03/14/18 12:15 03/14/18 12:30 Temperature 99.1 F Pulse Rate 75 77 75 Respiratory Rate 15 14 14 Blood Pressure 154/67 H 165/74 H 161/61 H Pulse Oximetry 96 96 97 03/14/18 12:45 03/14/18 13:00 03/14/18 13:15 Temperature Pulse Rate 73 76 72 Respiratory Rate 13 28 H 20 Blood Pressure 155/71 H 152/70 H 158/71 H Pulse Oximetry 97 99 97 03/14/18 13:30 03/14/18 13:35 03/14/18 13:45 Temperature Pulse Rate 74 76 Respiratory Rate 18 21 Blood Pressure 171/77 H 174/76 H Pulse Oximetry 98 93 L 03/14/18 14:00 03/14/18 14:15 03/14/18 16:21 Temperature Pulse Rate 72 71 Respiratory Rate 13 13 Blood Pressure 177/79 H 176/78 H Pulse Oximetry 98 98 99 03/14/18 17:43 03/14/18 19:00 03/14/18 20:00 Temperature 98.2 F Pulse Rate 78 76 78 Respiratory Rate 14 Blood Pressure 162/67 H Pulse Oximetry 99 03/14/18 21:00 03/14/18 22:00 03/14/18 23:00 Temperature Pulse Rate 80 74 82 Respiratory Rate Blood Pressure Pulse Oximetry 03/15/18 00:00 03/15/18 01:00 03/15/18 02:00 Temperature 98.2 F Pulse Rate 80 68 72 Respiratory Rate 14 Blood Pressure 162/67 H Pulse Oximetry 99 03/15/18 03:00 03/15/18 04:00 03/15/18 05:00 Temperature 98.2 F Pulse Rate 68 68 68 Respiratory Rate 16 Blood Pressure 145/69 H Pulse Oximetry 94 L 03/15/18 06:00 Temperature Pulse Rate 70 Respiratory Rate Blood Pressure Pulse Oximetry Intake & Output 03/14/18 03/15/18 03/15/18 18:59 06:59 18:59 Intake Total 1999 480 / 480 Output Total 1225 / 1225 Balance 1999 -745 / -745 Weight 148.5 kg Intake: IV 1999 Heparin/D5W 25,000 U/250 mL 25, 500 / 500 000 unit In 250 ml @ Per Protocol 10 mls/hr IV.CONT TITRATE PRN Rx#:[id number] Nitroglycerin Drip Premix 50 mg 500 / 500 In 250 ml @ Per Protocol IV. CONT TITRATE PRN Rx#:[id number] NS Inj 1,000 ML @ 100 mls/hr IV 1000 / 1000 .CONT .Q10H LONG Rx#:[id number] Oral 480 / 480 Output: Urine 1225 / 1225 Other: Date of Last Bowel Movement 03/12/18 Narrative: GENERAL: NAD SKIN: Warm and dry. HEAD: Atraumatic. Normocephalic. EYES: Pupils equal and round. No scleral icterus. No injection or drainage. ENT: No nasal bleeding or discharge. Mucous membranes pink and moist. NECK: Trachea midline. No JVD. CARDIOVASCULAR: Regular rate and rhythm. RESPIRATORY: No accessory muscle use. Clear to auscultation. Breath sounds equal bilaterally. GASTROINTESTINAL: Abdomen soft, non-tender, nondistended. Hepatic and splenic margins not palpable. MUSCULOSKELETAL: Extremities without clubbing, cyanosis, or edema. No obvious deformities. NEUROLOGICAL: Awake and alert. No obvious cranial nerve deficits. Motor grossly within normal limits. Five out of 5 muscle strength in the arms and legs. Normal speech. PSYCHIATRIC: Appropriate mood and affect; insight and judgment normal. Results - Labs CBC & Chem 7: 03/15/18 05:20 03/15/18 05:00 Laboratory Results - last 24 hr 03/14/18 03/14/18 03/14/18 12:42 17:26 20:41 WBC RBC Hgb Hct MCV MCH MCHC RDW Plt Count MPV APTT 25.0 Sodium Potassium Chloride Carbon Dioxide Anion Gap BUN Creatinine Estimated GFR POC Glucose 202 H 165 H Random Glucose Calcium 03/14/18 03/15/18 03/15/18 21:02 05:00 05:20 WBC 7.2 RBC 4.08 L Hgb 9.3 L Hct 30.4 L MCV 74.5 L MCH 22.7 L MCHC 30.4 L RDW 19.0 H Plt Count 231 MPV 7.4 APTT Sodium 141 Potassium 4.0 Chloride 105 Carbon Dioxide 27.8 Anion Gap 8 BUN 21 H Creatinine 1.35 H Estimated GFR 53 L POC Glucose 178 H Random Glucose 157 H Calcium 8.5 - Procedures none Assessment and Plan - Assessment (1) Chest pain Code(s): R07.9 - Chest pain, unspecified Status: Acute (2) Diabetes Code(s): E11.9 - Type 2 diabetes mellitus without complications Status: Acute (3) Myocardial infarct, old Code(s): I25.2 - Old myocardial infarction Status: Acute - Plan 67-year-old man with Non-ST elevation [place] Status post left heart catheterization, however cardiology recommended medical management Continue with Coreg, Imdur, Norvasc, ASA, Lipitor, MICHAEL inhibitor Appreciate input from cardiology Malignant hypertension Resolved Continue outpatient medications Diabetes type 2 Continue with Lantus and insulin sliding scale and hold all oral antihyperglycemic agents Normochromic normocytic anemia H&H stable, continue to monitor and transfuse for hemoglobin less than 7 Hyperlipidemia Currently on statin Chronic kidney disease stage II Monitor BUN and creatinine Avoid all nephrotoxic drug Patient to follow outpatient with podiatry DVT prophylaxis: Heparin
--- NOTE | 2018-03-15 11:10 | P.DS ---
Date of admission: 03/13/18 13:02 Primary care physician: UNKNOWN Brief History from admission: 67-year-old male with a past medical history of diabetes type 2, CAD, prior ME with stent placed presented to the ED for evaluation of acute onset of substernal chest pain rated over 6 in intensity associated with shortness of breath without any diaphoresis, with radiation to his neck and upper left arm without any tingling or numbness of upper extremities. Patient states despite taking over 2 nitroglycerin he did not have any relief until presented to the ED. The pain lasted more than 30 minutes. On arrival to the ED, patient was found to have SBP of over 200. GI bleed, he had some associated headaches. DS: Diagnosis - Discharge Diagnosis (1) Chest pain Status: Acute (2) Diabetes Status: Acute (3) Myocardial infarct, old Status: Acute DS: Medications - Discharge Medications Prescriptions: carvedilol [Coreg] 25 mg PO BID #60 tab isosorbide mononitrate 120 mg PO DAILY@0700 #30 tab DS: Summary Hospital Course: Patient admitted with atypical chest pain and diagnosed with non-ST elevation [place] for which cardiology was consulted and patient was starting on heparin drip continue on nitroglycerin secondary to malignant hypertension. He underwent left heart catheterization however recommended medical management per cardiology. Patient was started on insulin sliding scale and continue on his basal insulin. His blood pressure improved. Prior to discharge, patient's conditions improved and vitals remained stable. Medications were adjusted accordingly. - Time Spent with Patient Total time spent providing and/or coordinating discharge services: Less than 30 minutes - Quality: VTE Deep Vein Thrombosis/Pulmonary Embolism Present on Admission: No Exam Vital signs: Vital Signs 03/14/18 11:15 03/14/18 11:30 03/14/18 11:45 Temperature Pulse Rate 74 75 75 Respiratory Rate 0 L 5 L 14 Blood Pressure 148/66 H 146/55 H 149/65 H Pulse Oximetry 96 96 95 03/14/18 12:00 03/14/18 12:15 03/14/18 12:30 Temperature 99.1 F Pulse Rate 75 77 75 Respiratory Rate 15 14 14 Blood Pressure 154/67 H 165/74 H 161/61 H Pulse Oximetry 96 96 97 03/14/18 12:45 03/14/18 13:00 03/14/18 13:15 Temperature Pulse Rate 73 76 72 Respiratory Rate 13 28 H 20 Blood Pressure 155/71 H 152/70 H 158/71 H Pulse Oximetry 97 99 97 03/14/18 13:30 03/14/18 13:35 03/14/18 13:45 Temperature Pulse Rate 74 76 Respiratory Rate 18 21 Blood Pressure 171/77 H 174/76 H Pulse Oximetry 98 93 L 03/14/18 14:00 03/14/18 14:15 03/14/18 16:21 Temperature Pulse Rate 72 71 Respiratory Rate 13 13 Blood Pressure 177/79 H 176/78 H Pulse Oximetry 98 98 99 03/14/18 17:43 03/14/18 19:00 03/14/18 20:00 Temperature 98.2 F Pulse Rate 78 76 78 Respiratory Rate 14 Blood Pressure 162/67 H Pulse Oximetry 99 03/14/18 21:00 03/14/18 22:00 03/14/18 23:00 Temperature Pulse Rate 80 74 82 Respiratory Rate Blood Pressure Pulse Oximetry 03/15/18 00:00 03/15/18 01:00 03/15/18 02:00 Temperature 98.2 F Pulse Rate 80 68 72 Respiratory Rate 14 Blood Pressure 162/67 H Pulse Oximetry 99 03/15/18 03:00 03/15/18 04:00 03/15/18 05:00 Temperature 98.2 F Pulse Rate 68 68 68 Respiratory Rate 16 Blood Pressure 145/69 H Pulse Oximetry 94 L 03/15/18 06:00 Temperature Pulse Rate 70 Respiratory Rate Blood Pressure Pulse Oximetry Intake & Output 03/14/18 03/15/18 03/15/18 18:59 06:59 18:59 Intake Total 1999 480 / 480 Output Total 1225 / 1225 Balance 1999 -745 / -745 Weight 148.5 kg Intake: IV 1999 Heparin/D5W 25,000 U/250 mL 25, 500 / 500 000 unit In 250 ml @ Per Protocol 10 mls/hr IV.CONT TITRATE PRN Rx#:[id number] Nitroglycerin Drip Premix 50 mg 500 / 500 In 250 ml @ Per Protocol IV. CONT TITRATE PRN Rx#:[id number] NS Inj 1,000 ML @ 100 mls/hr IV 1000 / 1000 .CONT .Q10H LONG Rx#:[id number] Oral 480 / 480 Output: Urine 1225 / 1225 Other: Date of Last Bowel Movement 03/12/18 Narrative: GENERAL: NAD SKIN: Warm and dry. HEAD: Atraumatic. Normocephalic. EYES: Pupils equal and round. No scleral icterus. No injection or drainage. ENT: No nasal bleeding or discharge. Mucous membranes pink and moist. NECK: Trachea midline. No JVD. CARDIOVASCULAR: Regular rate and rhythm. RESPIRATORY: No accessory muscle use. Clear to auscultation. Breath sounds equal bilaterally. GASTROINTESTINAL: Abdomen soft, non-tender, nondistended. Hepatic and splenic margins not palpable. MUSCULOSKELETAL: Extremities without clubbing, cyanosis, or edema. No obvious deformities. NEUROLOGICAL: Awake and alert. No obvious cranial nerve deficits. Motor grossly within normal limits. Five out of 5 muscle strength in the arms and legs. Normal speech. PSYCHIATRIC: Appropriate mood and affect; insight and judgment normal. Results Procedures completed during hospitalization: none Labs on day of discharge: Labs from last 24 hours 03/15/18 03/15/18 03/14/18 05:20 05:00 21:02 WBC 7.2 RBC 4.08 L Hgb 9.3 L Hct 30.4 L MCV 74.5 L MCH 22.7 L MCHC 30.4 L RDW 19.0 H Plt Count 231 MPV 7.4 APTT Sodium 141 Potassium 4.0 Chloride 105 Carbon Dioxide 27.8 Anion Gap 8 BUN 21 H Creatinine 1.35 H Estimated GFR 53 L POC Glucose 178 H Random Glucose 157 H Calcium 8.5 03/14/18 03/14/18 03/14/18 20:41 17:26 12:42 WBC RBC Hgb Hct MCV MCH MCHC RDW Plt Count MPV APTT 25.0 Sodium Potassium Chloride Carbon Dioxide Anion Gap BUN Creatinine Estimated GFR POC Glucose 165 H 202 H Random Glucose Calcium Discharge Plan - Discharge Disposition Patient Disposition: Discharge Home - Discharge Condition Condition: Fair - Discharge Order Discharge Orders: Discharge Order (Routine); Ordered 03/15/18 Ordered By: Dvo Briggs - Physicians Team Primary Care Provider: UNKNOWN, Attending Provider: Dov Briggs Other Providers: Saniya Andres DPM ; Jethro Nelson, - Rxs /Orders / Referrals /Forms Prescriptions: New carvedilol [Coreg] 12.5 mg Tablet 25 mg PO BID Qty: 60 RF: 3 isosorbide mononitrate 60 mg Tablet Extended Release 24 Hr 120 mg PO DAILY@0700 Qty: 30 RF: 3 Continue amlodipine 10 mg Tablet 10 mg PO DAILY aspirin [Aspir-81] 81 mg Tablet,Delayed Release (Dr/Ec) 81 mg PO DAILY atorvastatin 80 mg Tablet 80 mg PO DAILY clopidogrel [Plavix] 75 mg Tablet 75 mg PO DAILY duloxetine 60 mg Capsule,Delayed Release(Dr/Ec) 80 mg PO DAILY furosemide 40 mg Tablet 40 mg PO DAILY gabapentin 800 mg Tablet 300 mg PO TID gemfibrozil 600 mg Tablet 600 mg PO BID glipizide 5 mg Tablet 5 mg PO DAILY GlucaGen HypoKit insulin aspart U-100 [Novolog PenFill U-100 Insulin] 100 unit/mL Cartridge 22 units subcut PRN (Reason: blood sugar) insulin glargine [Lantus U-100 Insulin] 100 unit/mL Solution 45 unit SUBCUT BID lisinopril 20 mg Tablet 20 mg PO DAILY magnesium oxide 400 mg Capsule 400 mg PO BID metformin 1,000 mg Tablet 1,000 mg PO BID niacin 500 mg Capsule, Extended Release 1,500 mg PO QAM nitroglycerin 0.4 mg Tablet, Sublingual 0.4 mg SUBLINGUAL Q5-15M PRN (Reason: Chest Pain) vitamin B complex Tablet 1 tab PO DAILY Discontinued carvedilol 12.5 mg Tablet 12.5 mg PO BID insulin glargine [Lantus U-100 Insulin] 100 unit/mL Solution 90 unit SUBCUT BID isosorbide mononitrate 60 mg Tablet Extended Release 24 Hr 90 mg PO QAM lisinopril 40 mg Tablet 20 mg PO DAILY Referrals: [employer] Manager [Outside] - See Instructions UNKNOWN, [Primary Care Provider] - See Instructions - Discharge Instructions Patient Printed Instructions: Heart Catheterization (DC)
== END 2018-03-15 11:03 | disposition home or self-care (01) | DRG 281 ==
LOC: NEDDLT 09:52 → N03 13:02 → HCIS 03-14 18:00
PROVIDERS: ADMIT Hospitalist; ATTEND Hospitalist
DX: Z79.4 Long term (current) use of insulin; I25.110 Atherosclerotic heart disease of native coronary artery with unstable angina pectoris; Z82.3 Family history of stroke; Q66.50 Congenital pes planus, unspecified foot; N17.9 Acute kidney failure, unspecified; Z68.42 Body mass index [BMI] 45.0-49.9, adult; I87.2 Venous insufficiency (chronic) (peripheral); E11.319 Type 2 diabetes mellitus with unspecified diabetic retinopathy without macular edema; Z82.49 Family history of ischemic heart disease and other diseases of the circulatory system; Z95.5 Presence of coronary angioplasty implant and graft; E11.22 Type 2 diabetes mellitus with diabetic chronic kidney disease; I12.9 Hypertensive chronic kidney disease with stage 1 through stage 4 chronic kidney disease, or unspecified chronic kidney disease; E11.51 Type 2 diabetes mellitus with diabetic peripheral angiopathy without gangrene; E66.01 Morbid (severe) obesity due to excess calories; Z90.49 Acquired absence of other specified parts of digestive tract; E78.2 Mixed hyperlipidemia; I21.4 Non-ST elevation (NSTEMI) myocardial infarction; G47.30 Sleep apnea, unspecified; D64.9 Anemia, unspecified; E11.42 Type 2 diabetes mellitus with diabetic polyneuropathy; I25.2 Old myocardial infarction; N18.2 Chronic kidney disease, stage 2 (mild)
CPT/HCPCS: 71010; 71045; 80048; 80053; 80061; 82550; 82948; 82962; 83520; 83735; 83880; 84484; 85025; 85027; 85610; 85730; 90774; 90775; 90784; 93005; 93306; 93458; 96374; 96375; 99152; 99153; 99291; C1769; C1887; C1893; C8952; J1644; J1815; J2250; J2270; J3010; J7030

== ENCOUNTER 2018-03-20 15:19 | Inpatient (IN) ==
--- NOTE | 2018-03-20 16:45 | ED ---
HPI General Chief complaint: Nausea/Vomiting/Diarrhea Stated complaint: Chest Pain/SOB/diarrhea/ Time Seen by Provider: 03/20/18 15:33 Source: patient and family Mode of arrival: ambulatory Limitations: no limitations History of Present Illness HPI Narrative: Patient is a 67-year-old male presenting to the [facility] for evaluation of diarrhea. Patient states it started on Sunday, he reports 5-10 bowel movements a day, watery and loose. He reports left lower quadrant abdominal pain that radiates to his back, he states the pain is a 3 out of 10, worse with movement. His last bowel movement was at noon today. Patient is tolerating food and fluids, he ate pancakes, lopez and eggs for breakfast and was able to keep that down. Patient reports that this is happened to him in the past. He reports cycles of constipation followed by diarrhea. Patient denies any chest pain, shortness of breath, fever, chills. He does report that he feels as if it is difficult to start urinating. He denies any dysuria. Past medical history is significant for NSTEMI, coronary artery disease, hypertension, type 2 diabetes, obstructive sleep apnea. Patient is here for the winter, he does not have a primary doctor at this time. MD complaint: Reports diarrhea Onset (ago): day(s) Description of Diarrhea: watery Associated Abdominal Pain: Yes Location of pain: Reports LLQ Radiation: left flank Severity: moderate Severity scale (1-10): 3 Quality: Reports cramping Pain Consistency: colicky Relieving factors: none Exacerbating factors: eating (precipitates bm) Related Data Home Medications Medication Instructions Recorded Confirmed amlodipine 10 mg PO DAILY 03/13/18 03/20/18 aspirin [Aspir-81] 81 mg PO DAILY 03/13/18 03/20/18 atorvastatin 80 mg PO DAILY 03/13/18 03/20/18 clopidogrel [Plavix] 75 mg PO DAILY 03/13/18 03/20/18 duloxetine 80 mg PO DAILY 03/13/18 03/20/18 furosemide 40 mg PO DAILY 03/13/18 03/20/18 gabapentin 900 mg PO TID 03/13/18 03/20/18 gemfibrozil 600 mg PO BID 03/13/18 03/20/18 glipizide 5 mg PO DAILY 03/13/18 03/20/18 insulin aspart U-100 [Novolog 1 - 25 units SUBCUT ACHS PRN 03/13/18 03/20/18 PenFill U-100 Insulin] insulin glargine [Lantus U-100 45 unit SUBCUT BID 03/13/18 03/20/18 Insulin] lisinopril 20 mg PO DAILY 03/13/18 03/20/18 magnesium oxide 400 mg PO BID 03/13/18 03/20/18 metformin 1,000 mg PO BID 03/13/18 03/20/18 niacin 1,500 mg PO QAM 03/13/18 03/20/18 nitroglycerin 0.4 mg SUBLINGUAL Q5-15M PRN 03/13/18 03/20/18 vitamin B complex 1 tab PO DAILY 03/13/18 03/20/18 Previous Rx's Medication Instructions Recorded carvedilol [Coreg] 25 mg PO BID #60 tab 03/15/18 isosorbide mononitrate 120 mg PO DAILY@0700 #30 tab 03/15/18 Allergies Allergy/AdvReac Type Severity Reaction Status Date / Time amoxicillin Allergy Severe Hives Verified 03/20/18 15:57 losartan Allergy Hives Verified 03/20/18 15:57 Review of Systems ROS: all other systems reviewed are negative [facility] Medical History Medical History Acute renal insufficiency (Acute) At risk for falls (Acute) CAD (coronary artery disease) (Acute) Cataract, left eye (Acute) Congenital pes planus (Acute) Coronary atherosclerosis (Acute) Diabetes (Acute) Diabetic retinopathy (Acute) Heart attack (Acute) Hernia (Acute) Hyperlipidemia (Acute) Hypersomnia with sleep apnea (Acute) Hypertension (Acute) Obesity, Class III, BMI 40-49.9 (morbid obesity) (Acute) PAD (peripheral artery disease) (Acute) Polyneuropathy in diabetes (Acute) Venous (peripheral) insufficiency (Acute) Venous ulcer of leg (Acute) Surgical History Surgical History H/O hernia repair (Acute) History of cholecystectomy (Acute) Stented coronary artery (Acute) Family History Family History Other CAD (coronary artery disease) CVA (cerebral vascular accident) Social History Social History Substance History: No History of Abuse Second Hand Smoke Exposure: No Smoking Status: Never smoker How Often Do You Have a Drink Containing Alcohol: Never Recent Travel in [facility] within the Last 8 Weeks: No Recent Out of Country Travel within the Last 8 Weeks: No Immunization History Tetanus Immunization: <5 Years Exam Narrative Exam Narrative: GENERAL: Obese, alert elderly male. Presenting in no acute distress. SKIN: Focused skin assessment warm/dry. HEAD: Atraumatic. Normocephalic. EYES: Pupils equal and round. No scleral icterus. No injection or drainage. ENT: No nasal bleeding or discharge. Mucous membranes pink and moist. NECK: Trachea midline. No JVD. CARDIOVASCULAR: Regular rate and rhythm. No murmur appreciated. RESPIRATORY: No accessory muscle use. Clear to auscultation. Breath sounds equal bilaterally. GASTROINTESTINAL: Abdomen soft, only tender left lower quadrant, nondistended. Hepatic and splenic margins not palpable. No CVAT bilaterally per MUSCULOSKELETAL: No obvious deformities. No clubbing. No cyanosis. No edema. NEUROLOGICAL: Awake and alert. No obvious cranial nerve deficits. Motor grossly within normal limits. Normal speech. PSYCHIATRIC: Appropriate mood and affect; insight and judgment normal. Course Initial Documented Vital Signs Temperature 98.0 F 03/20/18 15:23 Pulse Rate 84 03/20/18 15:23 Respiratory Rate 22 03/20/18 15:23 Blood Pressure 154/65 H 03/20/18 15:23 Pulse Oximetry 98 03/20/18 15:23 Last Documented Vital Signs Temperature 98.0 F 03/20/18 15:23 Pulse Rate 67 03/20/18 18:38 Respiratory Rate 18 03/20/18 18:38 Blood Pressure 149/70 H 03/20/18 18:38 Pulse Oximetry 97 03/20/18 18:38 Medical Decision Making YO Attestation YO supervised visit: Yes Attestation: I, Dr. Lo, have reviewed the advance practice practitioner's documentation and am in agreement, met with the patient face to face, made the diagnosis, and the medical decision making was done by me. *My assessment and Findings: Patient seen and examined by me in addition to Fouzia SCOTT, patient has acute kidney injury, nausea vomiting diarrhea. 2 L normal saline, no EKG changes consistent with hyperkalemia. I also reviewed bedside ultrasound with him postvoid residual probably less than 100 cc. Limited exam secondary to body habitus. Will be admitted for further workup following a CAT scan to exclude obstructive uropathy. Patient also does have elevated lipase may need GI consult. [facility] Narrative Medical decision making narrative: Patient presented for evaluation of diarrhea for last 4 days. Patient's vital signs are stable. Labs and imaging ordered and pending. is at bedside. CBC with no acute findings, chemistry with elevated BUN and creatinine 81/11.32 , when compared to prior from 4 days ago 21/1.35. K+5.7. Moderate amount of blood in the urine. Lipase is elevated at 1602 Patient was given IV fluids, will insert a urinary catheter for accurate I/O CT scan abdomen pelvis is negative for obstructive uropathy, renal calculi. Acute renal failure is likely secondary to dehydration from the diarrhea or from the IV contrast with the cardiac cath last week. Patient was given a total of 2 L of IV fluids, maintenance fluids was ordered. Stool was sent for CDT, WBCs, enteric pathogens. Chest x-ray shows a left basilar density. Discussed findings with my attending physician. Patient will be admitted at this time. Dr. Moses accepted admit, orders placed. Patient and advised on clinical findings and plan of care and agreeable. Medical Screen Exam Complete: Yes Emergency Medical Condition: Yes Differential Diagnosis Differential Diagnosis: Irritable bowel syndrome versus diverticulitis versus metabolic abnormality versus obstruction versus other Medical Records Medical records reviewed: Yes I reviewed the patient's medical records. Patient underwent a heart cath last week, he was noted to have moderate to severe 3 vessel coronary artery disease, normal left ventricular function with an ejection fraction of 55% possible moderate aortic stenosis. Patient will be managed medically according to progress notes, his medications were adjusted on discharge, his dose of carvedilol and isosorbide were increased, insulin glargine was decreased. Lab Data Lab results reviewed: Yes I reviewed the patient's lab results. Result diagrams: 03/20/18 16:30 03/20/18 16:30 Lab Results 03/20/18 03/20/18 03/20/18 Range/Units 16:30 16:30 16:30 WBC 7.3 (4.0-11.0) th/mm3 RBC 4.08 L (4.50-5.90) mil/mm3 Hgb 9.6 L (13.0-17.0) gm/dL Hct 30.5 L (39.0-51.0) % MCV 74.8 L (80.0-100.0) fL MCH 23.5 L (27.0-34.0) pg MCHC 31.4 L (32.0-36.0) % RDW 19.2 H (11.6-17.2) % Plt Count 252 (150-450) th/mm3 MPV 7.8 (7.0-11.0) fL Neut % (Auto) 81.7 H (16.0-70.0) % Lymph % (Auto) 11.6 (9.0-44.0) % [place] % (Auto) 5.6 (0.0-8.0) % Eos % (Auto) 0.5 (0.0-4.0) % Baso % (Auto) 0.6 (0.0-2.0) % Neut # (Auto) 6.0 (1.8-7.7) th/mm3 Lymph # (Auto) 0.8 L (1.0-4.8) th/mm3 [place] # (Auto) 0.4 (0.0-0.9) th/mm3 Eos # (Auto) 0.0 (0.0-0.4) th/mm3 Baso # (Auto) 0.0 (0.0-0.2) th/mm3 WBC Differential . Differential Comment Auto diff final Sodium 135 L (136-145) meq/L Potassium 5.7 H (3.5-5.1) meq/L Chloride 101 (98-107) meq/L Carbon Dioxide 20.3 L (21.0-32.0) meq/L Anion Gap 14 (5-15) meq/L BUN 81 H (7-18) mg/dL Creatinine 11.32 H* (0.60-1.30) mg/dL Estimated GFR 5 L (>89) mL/min Random Glucose 102 (74-106) mg/dL Calcium 8.1 L (8.5-10.1) mg/dL Magnesium 2.3 (1.5-2.5) mg/dL Total Bilirubin 0.3 (0.2-1.0) mg/dL AST 8 L (15-37) U/L ALT 15 (12-78) U/L Alkaline Phosphatase 92 (45-117) U/L Total Protein 7.5 (6.4-8.2) g/dL Albumin 3.5 (3.4-5.0) g/dL Lipase 1602 H (73-393) U/L Urine Color Straw (Yellw/Straw) Urine Clarity Clear (Clear) Urine pH 5.0 (5.0-8.5) Ur Specific [place] 1.008 (1.002-1.035) Urine Protein 30 H (Neg-Trace) mg/dL Urine Glucose (UA) 50 (Negative) mg/dL Urine Ketones Negative (Negative) mg/dL Urine Occult Blood Moderate H (Negative) Urine Nitrate Negative (Negative) Urine Bilirubin Negative (Negative) Urine Urobilinogen Less than 2 (Less than 2) mg/dL Ur Leukocyte Esterase Negative (Negative) Urine RBC 30 H (0-3) /hpf Urine WBC 1 (0-5) /hpf Ur Squamous Epith Cells <1 (0-5) /hpf Urine Bacteria Rare H (None) /hpf Urine Mucus Few H (Occasional) /lpf Micro UA Comment Culture not ind Ur Microscopic Review Not Reportable Urine Culture Comments Culture not ind Stl C.difficile DNA Amp (Negative) St C. diff Tox Epid 027 (Negative) 03/20/18 Range/Units 18:12 WBC (4.0-11.0) th/mm3 RBC (4.50-5.90) mil/mm3 Hgb (13.0-17.0) gm/dL Hct (39.0-51.0) % MCV (80.0-100.0) fL MCH (27.0-34.0) pg MCHC (32.0-36.0) % RDW (11.6-17.2) % Plt Count (150-450) th/mm3 MPV (7.0-11.0) fL Neut % (Auto) (16.0-70.0) % Lymph % (Auto) (9.0-44.0) % [place] % (Auto) (0.0-8.0) % Eos % (Auto) (0.0-4.0) % Baso % (Auto) (0.0-2.0) % Neut # (Auto) (1.8-7.7) th/mm3 Lymph # (Auto) (1.0-4.8) th/mm3 [place] # (Auto) (0.0-0.9) th/mm3 Eos # (Auto) (0.0-0.4) th/mm3 Baso # (Auto) (0.0-0.2) th/mm3 WBC Differential Differential Comment Sodium (136-145) meq/L Potassium (3.5-5.1) meq/L Chloride (98-107) meq/L Carbon Dioxide (21.0-32.0) meq/L Anion Gap (5-15) meq/L BUN (7-18) mg/dL Creatinine (0.60-1.30) mg/dL Estimated GFR (>89) mL/min Random Glucose (74-106) mg/dL Calcium (8.5-10.1) mg/dL Magnesium (1.5-2.5) mg/dL Total Bilirubin (0.2-1.0) mg/dL AST (15-37) U/L ALT (12-78) U/L Alkaline Phosphatase (45-117) U/L Total Protein (6.4-8.2) g/dL Albumin (3.4-5.0) g/dL Lipase (73-393) U/L Urine Color (Yellw/Straw) Urine Clarity (Clear) Urine pH (5.0-8.5) Ur Specific [place] (1.002-1.035) Urine Protein (Neg-Trace) mg/dL Urine Glucose (UA) (Negative) mg/dL Urine Ketones (Negative) mg/dL Urine Occult Blood (Negative) Urine Nitrate (Negative) Urine Bilirubin (Negative) Urine Urobilinogen (Less than 2) mg/dL Ur Leukocyte Esterase (Negative) Urine RBC (0-3) /hpf Urine WBC (0-5) /hpf Ur Squamous Epith Cells (0-5) /hpf Urine Bacteria (None) /hpf Urine Mucus (Occasional) /lpf Micro UA Comment Ur Microscopic Review Urine Culture Comments Stl C.difficile DNA Amp Negative (Negative) St C. diff Tox Epid 027 Negative (Negative) Imaging Data Radiologist's impression: Abdomen/Pelvis CT 03/20/18 17:39 CONCLUSION: 1. Unremarkable bowel gas pattern with no inflammatory change or obstruction. 2. Status post cholecystectomy. 3. Small anterior abdominal wall hernia containing omental fat. Chest X-Ray 03/20/18 18:00 CONCLUSION: Elevation left hemidiaphragm and left basilar density. Discharge Plan Discharge Disposition Patient Disposition: ED Admit(ED Internal Use Only) Discharge Condition Condition: Stable Discharge Order Discharge Orders: ED Use Only Admit Order (Routine); Ordered 03/20/18 Ordered By: Fouzia Rivers Discharge Details Diagnosis: Acute renal failure (ARF), Acute hyperkalemia, Diarrhea Physicians Team ED Provider: Chetan Lo ED Midlevel Provider: Fouzia Rivers Primary Care Provider: UNKNOWN, Attending Provider: Chris Moses Status ED Status: Admitted Patient
[2018-03-20 16:47] LABS: Baso % (Auto) 0.6 % (0.0-2.0); Eos % (Auto) 0.5 % (0.0-4.0); Hematocrit 30.5 % (39.0-51.0); Hemoglobin 9.6 gm/dL (13.0-17.0); Lymph # (Auto) 0.8 th/mm3 (1.0-4.8); Lymph % (Auto) 11.6 % (9.0-44.0); Mean Corpuscular HGB Conc 31.4 % (32.0-36.0); Mean Corpuscular Hemoglobin 23.5 pg (27.0-34.0); Mean Corpuscular Volume 74.8 fL (80.0-100.0); Mean Platelet Volume 7.8 fL (7.0-11.0); Mono # (Auto) 0.4 th/mm3 (0.0-0.9); Mono % (Auto) 5.6 % (0.0-8.0); Neut % (Auto) 81.7 % (16.0-70.0); Platelet Count 252 th/mm3 (150-450); Red Blood Count 4.08 mil/mm3 (4.50-5.90); Red Cell Distribution Width 19.2 % (11.6-17.2); White Blood Count 7.3 th/mm3 (4.0-11.0)
[2018-03-20 17:03] LABS: Alanine Aminotransferase 15 U/L (12-78); Albumin 3.5 g/dL (3.4-5.0); Anion Gap 14 meq/L (5-15); Aspartate Aminotransferase 8 U/L (15-37); Blood Urea Nitrogen 81 mg/dL (7-18); Calcium 8.1 mg/dL (8.5-10.1); Carbon Dioxide 20.3 meq/L (21.0-32.0); Chloride 101 meq/L (98-107); Glomerular Filtration Rate 5 mL/min (>89); Glucose,Random 102 mg/dL (74-106); Magnesium 2.3 mg/dL (1.5-2.5); Potassium 5.7 meq/L (3.5-5.1); Sodium 135 meq/L (136-145)
[2018-03-20 17:05] LABS: Bacteria,Urine Rare /hpf; Bilirubin,Urine Negative (Negative); Clarity,Urine Clear (Clear); Color,Urine Straw (Yellw/Straw); Glucose,Urine (UA) 50 mg/dL (Negative); Leukocyte Esterase,Urine Negative (Negative); Mucus,Urine Few /lpf (Occasional); Nitrite,Urine Negative (Negative); Specific Gravity,Urine 1.008 (1.002-1.035); Squamous Epithelial Cell,Urine <1 /hpf (0-5)
[2018-03-20 17:06] LABS: Alkaline Phosphatase 92 U/L (45-117); Lipase 1602 U/L (73-393); Total Protein 7.5 g/dL (6.4-8.2)
[2018-03-20] MEDS ORDERED: Sod Chloride 0.9% Inj 1,000 ML IV.SIG SCH ×2 (17:45→19:15)
--- NOTE | 2018-03-20 18:29 | XR ---
EXAM DATE: 03/20/2018 6:24 PM EST AGE/SEX: 67 years / Male INDICATIONS: Shortness of breath. CLINICAL DATA: This is the patient's initial encounter. Patient reports that signs and symptoms have been present for 1 day and indicates a pain score of 0/10. MEDICAL/SURGICAL HISTORY: None. None. COMPARISON: [facility], CHEST 1V SINGLE AP, 03/13/2018. . FINDINGS: A single AP view of the chest demonstrates elevation left hemidiaphragm and left basilar density. Car diomegaly The cardiomediastinal contours are unremarkable. Osseous structures are intact. CONCLUSION: Elevation left hemidiaphragm and left basilar density. Electronically signed by: Dov Chirinos MD Board Certified Radiologist 03/20/2018 6:27 PM EST
--- NOTE | 2018-03-20 19:33 | CT ---
EXAM DATE: 03/20/2018 7:25 PM EST AGE/SEX: 67 years / Male INDICATIONS: Diarrhea vomiting groin pain that radiates to abdomen CLINICAL DATA: This is the patient's initial encounter. Patient reports that signs and symptoms have been present for 1 day and indicates a pain score of 8/10. MEDICAL/SURGICAL HISTORY: Cardiovascular disease. Diabetes. Cardiovascular disease. Hyperten braulio peripheral arterial disease Cholecystectomy. Coronary artery stent. RADIATION DOSE: 29.21 CTDI (mGy) COMPARISON: No prior exams available for comparison. TECHNIQUE: Multiple contiguous axial images were obtained through the abdomen. Images were obtained using multiple row detector helical technique. Using automated exposure control and adjustment of the mA and/or kV according to patient size, radiation dose was kept as low as reasonably achievable to o btain optimal diagnostic quality images. DICOM format image data is available electronically for rev iew and comparison. FINDINGS: Lower Lungs: The visualized lower lungs are clear. Coronary artery calcifications are present. Liver: The liver has a homogeneous density without space-occupying lesion. There is no dilation of th e biliary tree. The patient is status post cholecystectomy. Spleen: Homogeneous density without enlargement. Pancreas: Unremarkable without mass or calcification. Kidneys: Normal in size and shape. No evidence of mass or hydronephrosis. Adrenal Glands: Unremarkable. Aorta: The aorta and proximal iliac vessels are grossly unremarkable without aneurysmal dilation. Bowel/Mesentery: The bowel loops are grossly unremarkable. The cecum and sigmoid colon have a normal configuration. Abdominal Wall: No oral contrast was given limiting the sensitivity of the examination. There is a sm all anterior abdominal wall hernia in the right parasagittal region. This contains omental fat. Retroperitoneum: No evidence of adenopathy in the retrocrural, para-aortic, or deep pelvic regions. Bladder: Contours are smooth. Reproductive Organs: There are benign calcifications. Inguinal: The inguinal region is unremarkable without evidence of adenopathy. Bony Structures: Unremarkable. CONCLUSION: 1. Unremarkable bowel gas pattern with no inflammatory change or obstruction. 2. Status post cholecystectomy. 3. Small anterior abdominal wall hernia containing omental fat. Electronically signed by: Antonio Hernandez MD Board Certified Radiologist 03/20/2018 7:32 PM EST
[2018-03-20] MEDS: Sod Chloride 0.9% Inj 1,000 ML IV.CONT SCH (20:35)
[2018-03-20] MEDS ORDERED: Acetaminophen 325 MG Tablet PO PRN (21:47)
--- NOTE | 2018-03-20 23:36 | P.HPIM ---
History of Present Illness Primary Care Physician: History of inpatient, ER physician communication, and review of medical records. Patient reported that he came to the hospital because he was having pain in his right lower back since that time he had coronary angiogram last week February. He reports that he felt the pain and he noticed decreased urination at home. This was then followed by diarrhea episodes as well. However he stated that he in fact has been having diarrhea even prior to the coronary angiogram. He has suffered from alternating constipation and diarrhea for the past several months. He has not had this checked out with any doctors yet. Patient denies any recent fever/vomiting. He reported that he has been nauseous and was dry heaving yesterday. Denies any blood in his stool or in his urine. Denies any chest pain/palpitations. He states he is short of breath at baseline. He also has some cough at baseline but he was told this was secondary to his lisinopril and the dose was reduced from 40 mg to 20 mg by PCP. Denies any dizziness/syncopal episodes/falls. Patient reports that he was also on antibiotics about 2 months ago. He has had history of renal problems back in November and was seeing a neurologist in [place]. He was told at that time that his GFR was 45. In December follow-up visit, he thought that his creatinine has improved. He was due to see the flat knitter again soon. In the emergency room, patient's was workup revealed acute renal failure with creatinine of 11. Patient was given IV fluids in ER. Review of systems: Complete review of system is performed and is negative apart from what is mentioned in HPI Past medical history: Coronary artery disease. Status post coronary angiogram on March 13, 2018. Stated they were unable to put a stent at that time. On Plavix. Hypertension Diabetes Obstructive sleep apnea on CPAP at night. Pressure 10. Chronic kidney disease. Last GFR was 45 in November. Iron deficiency anemia on iron pills. Past surgical history: Umbilical hernia repair Cholecystectomy Right cataract surgery Colonoscopy Social history: Never been a smoker. Denies any alcohol abuse or drug abuse. States that he used to drink alcohol with friends somewhat heavily between the ages of 19 years old to 28 years old. Family history: Denies any family history that he knows of. Medications: Patient reports that he was just discharged from our hospital recently and nothing has changed since then. Inpatient Certification Inpatient Certification: I certify that the inpatient services were ordered in accordance with Medicare regulations governing the order. This includes certification that hospital inpatient services are reasonable and necessary and in the case of services not specified as inpatient-only under 42 CFR 419.22(n), that they are appropriately provided as inpatient services in accordance to with the 2-midnight benchmark under 43 CFR 412.3(e) Estimated Total Length of Stay (Days): 4 Plans for Post Hospital Care: Home Review of Systems Review of Systems: all other systems reviewed are negative [facility] Medical History Medical History Acute renal insufficiency (Acute) CAD (coronary artery disease) (Acute) Congenital pes planus (Acute) Coronary atherosclerosis (Acute) Diabetes (Acute) Diabetic retinopathy (Acute) Heart attack (Acute) Hernia (Acute) Hyperlipidemia (Acute) Hypersomnia with sleep apnea (Acute) Hypertension (Acute) Obesity, Class III, BMI 40-49.9 (morbid obesity) (Acute) PAD (peripheral artery disease) (Acute) Polyneuropathy in diabetes (Acute) Venous (peripheral) insufficiency (Acute) Venous ulcer of leg (Acute) At risk for falls (Chronic) Cataract, left eye (Chronic) Surgical History Surgical History H/O hernia repair (Acute) History of cholecystectomy (Acute) Stented coronary artery (Acute) Family History Family History Other CAD (coronary artery disease) CVA (cerebral vascular accident) Social History Social History Substance History: No History of Abuse Second Hand Smoke Exposure: No Smoking Status: Never smoker How Often Do You Have a Drink Containing Alcohol: Never Recent Travel in [place] within the Last 8 Weeks: No Recent Out of Country Travel within the Last 8 Weeks: No Immunization History Tetanus Immunization: <5 Years Hx Influenza Vaccine This Season: Yes Medications and Allergies Allergies Allergy/AdvReac Type Severity Reaction Status Date / Time amoxicillin Allergy Severe Hives Verified 03/20/18 15:57 losartan Allergy Hives Verified 03/20/18 15:57 Home Medications Medication Instructions Recorded Confirmed Type amlodipine 10 mg PO DAILY 03/13/18 03/20/18 History aspirin [Aspir-81] 81 mg PO DAILY 03/13/18 03/20/18 History atorvastatin 80 mg PO DAILY 03/13/18 03/20/18 History clopidogrel [Plavix] 75 mg PO DAILY 03/13/18 03/20/18 History duloxetine 80 mg PO DAILY 03/13/18 03/20/18 History furosemide 40 mg PO DAILY 03/13/18 03/20/18 History gabapentin 900 mg PO TID 03/13/18 03/20/18 History gemfibrozil 600 mg PO BID 03/13/18 03/20/18 History glipizide 5 mg PO DAILY 03/13/18 03/20/18 History insulin aspart U-100 [Novolog 1 - 25 units SUBCUT ACHS PRN 03/13/18 03/20/18 History PenFill U-100 Insulin] insulin glargine [Lantus U-100 45 unit SUBCUT BID 03/13/18 03/20/18 History Insulin] lisinopril 20 mg PO DAILY 03/13/18 03/20/18 History magnesium oxide 400 mg PO BID 03/13/18 03/20/18 History metformin 1,000 mg PO BID 03/13/18 03/20/18 History niacin 1,500 mg PO QAM 03/13/18 03/20/18 History nitroglycerin 0.4 mg SUBLINGUAL Q5-15M PRN 03/13/18 03/20/18 History vitamin B complex 1 tab PO DAILY 03/13/18 03/20/18 History Active Medications: Active Medications Acetaminophen (Tylenol) 650 mg PO Q4H PRN PRN Reason: Temp > 100.4 Sodium Chloride (Ns Inj) 1,000 mls @ 100 mls/hr IV.CONT .Q10H LONG Last Admin: 03/20/18 20:35 Dose: 100 mls/hr Ondansetron HCl (Zofran Inj) 4 mg IV.PUSH Q6H PRN PRN Reason: NAUSEA OR VOMITING Sodium Chloride (Ns Flush) 2 ml IV.FLUSH PRN PRN PRN Reason: FLUSH AFTER USING IV ACCESS Sodium Chloride (Ns Flush) 2 ml IV.FLUSH BID LONG Sodium Chloride (Ns Flush) 2 ml IV.FLUSH PRN PRN PRN Reason: FLUSH AFTER USING IV ACCESS Physical Exam Vital signs: Last Vital Signs Temp 98.4 F 03/20/18 21:55 Pulse 80 03/20/18 22:00 Resp 20 03/20/18 22:00 BP 140/70 03/20/18 22:00 Pulse Ox 98 03/20/18 22:00 Intake & Output 03/18/18 03/19/18 03/20/18 03/21/18 06:59 06:59 06:59 06:59 Intake Total 1999 Balance 1999 Weight 157.85 kg GENERAL: This is a well-nourished, well-developed patient, in no apparent distress.Obese gentleman. Sitting up by the bedside. Not in acute distress. CARDIOVASCULAR: Regular rate and rhythm without murmurs, gallops, or rubs. RESPIRATORY: Clear to auscultation. Breath sounds equal bilaterally. No wheezes , rales, or rhonchi. GASTROINTESTINAL: Abdomen soft, non-tender, Normal active bowel sounds. Obese abdomen. Distended somewhat. MUSCULOSKELETAL: Extremities without clubbing, cyanosis, or edema. Skin: Mild redness and dried out dry scaly skin in bilateral lower extremity with healed old ulcers. NEURO: Alert & Oriented x4 to person, place, time, situation. Moves all ext x4 Results Labs CBC & Chem 7: 03/21/18 05:17 03/21/18 05:17 Imaging Impressions Abdomen/Pelvis CT 03/20/18 17:39 CONCLUSION: 1. Unremarkable bowel gas pattern with no inflammatory change or obstruction. 2. Status post cholecystectomy. 3. Small anterior abdominal wall hernia containing omental fat. Chest X-Ray 03/20/18 18:00 CONCLUSION: Elevation left hemidiaphragm and left basilar density. Caprini VTE Risk Assessment Caprini VTE Risk Assessment: Moderate/High Risk (score >= 2) Caprini Risk Assessment Model: Point Value = 1 Point Value = 2 Point Value = 3 Point Value = 5 Age 41-60 Minor surgery BMI > 25 kg/m2 Swollen legs Varicose veins or History of unexplained or recurrent spontaneous Oral contraceptives or hormone replacement Sepsis (< 1 month) Serious lung disease, including pneumonia (< 1 month) Abnormal pulmonary function Acute myocardial infarction Congestive heart failure (< 1 month) History of inflammatory bowel disease Medical patient at bed rest Age 61-74 Arthroscopic surgery Major open surgery (> 45 min) Laparoscopic surgery (> 45 min) Malignancy Confined to bed (> 72 hours) Immobilizing plaster cast Central venous access Age >= 75 History of VTE Family history of VTE Factor V Leiden Prothrombin [id number] Lupus anticoagulant Anticardiolipin antibodies Elevated serum homocysteine Heparin-induced thrombocytopenia Other congenital or acquired thrombophilia Stroke (< 1 month) Elective arthroplasty Hip, pelvis, or leg fracture Acute spinal cord injury (< 1 month) Prophylaxis Regimen: Total Risk Factor Score Risk Level Prophylaxis Regimen 0-1 Low Early ambulation 2 Moderate Order ONE of the following: *Sequential Compression Device (SCD) *Heparin 5000 units SQ BID 3-4 Higher Order ONE of the following medications: *Heparin 5000 units SQ TID *Enoxaparin/Lovenox 40 mg SQ daily (WT < 150 kg, CrCl > 30 mL/min) *Enoxaparin/Lovenox 30 mg SQ daily (WT < 150 kg, CrCl > 10-29 mL/min) *Enoxaparin/Lovenox 30 mg SQ BID (WT < 150 kg, CrCl > 30 mL/min) AND/OR *Sequential Compression Device (SCD) 5 or more Highest Order ONE of the following medications: *Heparin 5000 units SQ TID (Preferred with Epidurals) *Enoxaparin/Lovenox 40 mg SQ daily (WT < 150 kg, CrCl > 30 mL/min) *Enoxaparin/Lovenox 30 mg SQ daily (WT < 150 kg, CrCl > 10-29 mL/min) *Enoxaparin/Lovenox 30 mg SQ BID (WT < 150 kg, CrCl > 30 mL/min) AND *Sequential Compression Device (SCD) Assessment and Plan Plan Impression: Acute on chronic renal failure. Multifactorial. From dehydration secondary to diarrhea. Likely compounded with possible contrast-induced nephropathy. Coronary artery disease. Status post coronary angiogram on March 13, 2018. Stated they were unable to put a stent at that time. On Plavix. Hypertension Diabetes Obstructive sleep apnea on CPAP at night. Pressure 10. Chronic kidney disease. Last GFR was 45 in November. Iron deficiency anemia on iron pills. Plan: Continue IV hydration with normal saline at 100 cc/h. We will repeat renal function in a.m. CT abdomen and pelvis personally reviewed. No evidence of acute obstructive uropathy. No renal stones. Nephrology consult. GI evaluation as outpatient for chronic diarrhea/constipation episodes. We will monitor for further episodes of diarrhea while in hospital. Stool studies sent including C. difficile studies. We will follow-up. Resume home meds. Hold nephrotoxic meds. Held metformin, magnesium oxide, Lasix, gabapentin, gemfibrozil. Monitor fingersticks and cover with sliding scale coverage. DVT prophylaxis with heparin. H&P: Quality VTE Deep Vein Thrombosis/Pulmonary Embolism Present on Admission: No
[2018-03-21] MEDS ORDERED: Nitroglycerin SL (Override) 0.4 MG Tab SL PRN (01:47)
[2018-03-21] MEDS ORDERED: Dextrose 50% in Water 50 ML Vial IV.PUSH PRN (01:52)
[2018-03-21 05:47] LABS: Baso # (Auto) 0.1 th/mm3 (0.0-0.2); Baso % (Auto) 0.9 % (0.0-2.0); Eos # (Auto) 0.1 th/mm3 (0.0-0.4); Eos % (Auto) 2.2 % (0.0-4.0); Hematocrit 29.3 % (39.0-51.0); Hemoglobin 9.2 gm/dL (13.0-17.0); Lymph # (Auto) 1.5 th/mm3 (1.0-4.8); Lymph % (Auto) 22.4 % (9.0-44.0); Mean Corpuscular HGB Conc 31.5 % (32.0-36.0); Mean Corpuscular Volume 72.9 fL (80.0-100.0); Mean Platelet Volume 7.3 fL (7.0-11.0); Mono # (Auto) 0.8 th/mm3 (0.0-0.9); Mono % (Auto) 11.6 % (0.0-8.0); Neut # (Auto) 4.2 th/mm3 (1.8-7.7); Neut % (Auto) 62.9 % (16.0-70.0); Platelet Count 245 th/mm3 (150-450); Red Blood Count 4.02 mil/mm3 (4.50-5.90); Red Cell Distribution Width 19.1 % (11.6-17.2); White Blood Count 6.6 th/mm3 (4.0-11.0)
[2018-03-21] MEDS: Sod Chloride 0.9% Inj 1,000 ML IV.CONT SCH ×2 (05:56→17:58)
[2018-03-21] MEDS: Heparin - SQ 10,000 UNITS/ML Vial SQ SCH ×4 (05:57→22:18)
[2018-03-21 06:24] LABS: Carbon Dioxide 20.6 meq/L (21.0-32.0); Potassium 4.7 meq/L (3.5-5.1)
[2018-03-21] MEDS: Isosorbide Mononitrate 60 MG ER 24HR Tablet (Imdur) PO SCH (06:40)
[2018-03-21] MEDS ORDERED: Duloxetine 60 MG DR Capsule PO SCH (09:00)
[2018-03-21] MEDS ORDERED: INSULIN GLARGINE 45 UNIT SQ SCH (09:00)
[2018-03-21] MEDS ORDERED: Lisinopril 20 MG Tablet PO SCH (09:00)
[2018-03-21] MEDS: Insulin NovoLOG Aspart Correctional Sugar Inj SQ SCH ×4 (09:03→21:05)
[2018-03-21] MEDS: amLODIPine 10 MG Tablet PO SCH (09:47)
[2018-03-21] MEDS: glipiZIDE 5 MG Tablet PO SCH (09:47)
[2018-03-21] MEDS: Carvedilol 12.5 MG Tablet PO SCH ×2 (09:48→20:05)
--- NOTE | 2018-03-21 10:08 | P.CONNP ---
<Diana Rodríguez - Last Filed: 03/21/18 09:50> History of Present Illness Service: Nephrology Consult date: 03/21/18 Requesting Physician: Chris Moses Reason for Consult: Acute on chronic renal failure Primary Care Provider: UNKNOWN History of Present Illness: Patient is a 67 year old male with a past medical history of coronary artery disease with stent placment, Hypertension and diabetes for over 30 years, hyperlipidemia, diabetic neuropathy, and chronic kidney disease. Patient presented to the emergency room for evaluation of diarrhea and bilateral lower back pain. Found to have acute kidney injury. Patient had a heart cath done on the and discharged on the at that time creatinine was 1.35. Nephrology is consulted for acute kidney injury with a creatinine of 11.32 and potassium level of 5.7 on admission which has improved to 10.13 and potassium level of 4.7. Patient reports that he has been making adequate urine however it has not been measured. CT of abdomen with no hydronephrosis or masses. Patient denies shortness of breath, chest pain, nausea, and vomiting currently. Reports bilateral back pain which is tender to palpation. Review of Systems All other systems reviewed negative except as stated in HPI PMFSH - History History Provided By: Patient - Medical History Medical History: Medical History (Last Updated 03/21/18 @ 01:40 by Chris Moses MD) Acute renal insufficiency CAD (coronary artery disease) Congenital pes planus Coronary atherosclerosis Diabetes Diabetic retinopathy Heart attack Hernia Hyperlipidemia Hypersomnia with sleep apnea Hypertension Obesity, Class III, BMI 40-49.9 (morbid obesity) PAD (peripheral artery disease) Polyneuropathy in diabetes Venous (peripheral) insufficiency Venous ulcer of leg At risk for falls Cataract, left eye - Surgical History Surgical History: Surgical History (Last Reviewed 03/20/18 @ 16:44 by TYLER Mcfarland) H/O hernia repair History of cholecystectomy Stented coronary artery - Family History Family History: Family History (Last Reviewed 03/20/18 @ 16:44 by TYLER Mcfarland) Other CAD (coronary artery disease) CVA (cerebral vascular accident) - Tobacco History Second Hand Smoke Exposure: No Smoking Status: Never smoker - Alcohol History How Often Do You Have a Drink Containing Alcohol: Never - Substance Use History Substance History: No History of Abuse - Travel History Recent Travel in the [facility] Within the Last 8 Weeks: No Recent Travel Out of the Country Within the Last 8 Weeks: No - Immunization History Tetanus Immunization: <5 Years Hx Influenza Vaccine This Season: Yes Medications and Allergies Allergies Allergy/AdvReac Type Severity Reaction Status Date / Time amoxicillin Allergy Severe Hives Verified 03/20/18 15:57 losartan Allergy Hives Verified 03/20/18 15:57 Home Medications Medication Instructions Recorded Confirmed Type amlodipine 10 mg PO DAILY 03/13/18 03/20/18 History aspirin [Aspir-81] 81 mg PO DAILY 03/13/18 03/20/18 History atorvastatin 80 mg PO DAILY 03/13/18 03/20/18 History clopidogrel [Plavix] 75 mg PO DAILY 03/13/18 03/20/18 History duloxetine 80 mg PO DAILY 03/13/18 03/20/18 History furosemide 40 mg PO DAILY 03/13/18 03/20/18 History gabapentin 900 mg PO TID 03/13/18 03/20/18 History gemfibrozil 600 mg PO BID 03/13/18 03/20/18 History glipizide 5 mg PO DAILY 03/13/18 03/20/18 History insulin aspart U-100 [Novolog 1 - 25 units SUBCUT ACHS PRN 03/13/18 03/20/18 History PenFill U-100 Insulin] insulin glargine [Lantus U-100 45 unit SUBCUT BID 03/13/18 03/20/18 History Insulin] lisinopril 20 mg PO DAILY 03/13/18 03/20/18 History magnesium oxide 400 mg PO BID 03/13/18 03/20/18 History metformin 1,000 mg PO BID 03/13/18 03/20/18 History niacin 1,500 mg PO QAM 03/13/18 03/20/18 History nitroglycerin 0.4 mg SUBLINGUAL Q5-15M PRN 03/13/18 03/20/18 History vitamin B complex 1 tab PO DAILY 03/13/18 03/20/18 History Active Medications: Active Medications Acetaminophen (Tylenol) 650 mg PO Q4H PRN PRN Reason: Temp > 100.4 Amlodipine Besylate (Norvasc) 10 mg PO DAILY [facility] Last Admin: 03/21/18 09:47 Dose: 10 mg Aspirin (Ecotrin) 81 mg PO DAILY [facility] Last Admin: 03/21/18 09:47 Dose: 81 mg Atorvastatin Calcium (Lipitor) 80 mg PO DAILY [facility] Last Admin: 03/21/18 09:48 Dose: 80 mg Carvedilol (Coreg) 25 mg PO BID [facility] Last Admin: 03/21/18 09:48 Dose: 25 mg Clopidogrel Bisulfate (Plavix) 75 mg PO DAILY [facility] Last Admin: 03/21/18 09:48 Dose: 75 mg Dextrose (D50w Vial) 50 ml IV.PUSH UNSCH PRN PRN Reason: PER HYPOGLYCEMIA PROTOCOL Duloxetine HCl (Cymbalta) 80 mg PO DAILY [facility] Glipizide (Glucotrol) 5 mg PO DAILY [facility] Last Admin: 03/21/18 09:47 Dose: 5 mg Glucagon (Glucagon Inj) 1 mg OTHER PRN PRN PRN Reason: for Hypoglycemia Protocol Heparin Sodium (Porcine) (Heparin Inj) 5,000 units SQ Q8HR [facility] Last Admin: 03/21/18 05:57 Dose: 5,000 units Sodium Chloride (Ns Inj) 1,000 mls @ 100 mls/hr IV.CONT .Q10H [facility] Last Admin: 03/21/18 05:56 Dose: 100 mls/hr Insulin Aspart (Novolog Insulin Correctional Sugar Inj) 0 unit SQ ACHS [facility]; Protocol Last Admin: 03/21/18 09:03 Dose: Not Given Insulin Detemir (Levemir Inj) 45 unit SQ BID [facility] Isosorbide Mononitrate (Imdur) 120 mg PO DAILY@0700 [facility] Last Admin: 03/21/18 06:40 Dose: 120 mg Niacin (Slo-Niacin) 1,500 mg PO DAILY [facility] Nitroglycerin (Nitrostat Sl (Override)) 0.4 mg SL Q5M PRN PRN Reason: Chest Pain Non-Formulary Medication (Vitamin B Complex [Vitamin B Complex]) 1 tab PO DAILY [facility] Last Admin: 03/21/18 09:44 Dose: Not Given Ondansetron HCl (Zofran Inj) 4 mg IV.PUSH Q6H PRN PRN Reason: NAUSEA OR VOMITING Sodium Chloride (Ns Flush) 2 ml IV.FLUSH BID [facility] Last Admin: 03/21/18 09:48 Dose: Not Given Sodium Chloride (Ns Flush) 2 ml IV.FLUSH PRN PRN PRN Reason: FLUSH AFTER USING IV ACCESS Exam Vital signs: Vital Signs 03/20/18 15:23 03/20/18 15:56 03/20/18 18:38 Temperature 98.0 F Pulse Rate 84 67 Respiratory Rate 22 18 Blood Pressure 154/65 H 149/70 H Pulse Oximetry 98 97 97 03/20/18 21:55 03/20/18 22:00 03/21/18 00:00 Temperature 98.4 F 98.0 F Pulse Rate 82 80 68 Respiratory Rate 20 20 20 Blood Pressure 146/72 H 140/70 160/59 H Pulse Oximetry 98 98 97 03/21/18 04:00 03/21/18 08:01 Temperature 98.0 F 97.6 F Pulse Rate 67 66 Respiratory Rate 20 16 Blood Pressure 157/65 H 152/69 H Pulse Oximetry 97 97 Intake & Output 03/20/18 03/21/18 03/21/18 18:59 06:59 18:59 Intake Total 3000 / 3000 Balance 3000 / 3000 Weight 157.85 kg 157.85 kg Intake: IV 3000 / 3000 NS Inj 1,000 ML @ 100 mls/hr IV 1000 / 1000 .CONT .Q10H [facility] Rx#:[id number] NS Inj 1,000 ML @ 1000 mls/hr 1999 / 1999 IV.SIG BOLUS [facility] Rx#:[id number] Other: Weight On Admission 157.85 kg Narrative: GENERAL: Sitting on side of bed. NAD. Alert and oriented. SKIN: Warm and dry. NECK: Supple, trachea midline. No JVD. CARDIOVASCULAR: Regular rate and rhythm without murmurs, gallops, or rubs. RESPIRATORY: Breath sounds equal bilaterally. No accessory muscle use. GASTROINTESTINAL: Abdomen soft, non-tender, nondistended. +BS MUSCULOSKELETAL: No cyanosis, or edema. BACK: Tenderness palpated on bilateral lower back. Results - Lab Results 03/21/18 05:17 03/21/18 05:17 Most recent lab results Calcium 8.0 mg/dL (8.5-10.1) L 03/21/18 05:17 Magnesium 2.3 mg/dL (1.5-2.5) 03/20/18 16:30 Assessment and Plan - Assessment (1) Acute renal failure (ARF) Code(s): N17.9 - Acute kidney failure, unspecified Status: Acute Plan: Acute kidney injury with a creatinine of 11.32 and potassium level of 5.7 on admission. KAE possible related to contrast received on the in combination with poor intake and diarrhea. Has chronic kidney disease with GFR reported at 45ml/min most likely from HTN/ renovascular disease or diabetes. CT of abdomen with no hydronephrosis or masses. Recommend to continue IVF and oral fluids encouraged. Avoid nephrotoxins including NSAIDS and IV contrast. Will not order renal US as CT of abdomen with no acute finding. Strict I+O ordered, patient reports adequate urine output but not documented. Fluid and electrolytes are stable, no urgent need for dialysis. Urine osmolarity, sodium, and creatinine ordered. Will monitor urinary output and BMP. labs in AM (2) Hypertension Code(s): I10 - Essential (primary) hypertension Status: Chronic Plan: Will monitor. On amlodipine and coreg. (3) Hyperlipidemia Code(s): E78.5 - Hyperlipidemia, unspecified Status: Chronic Plan: On Lipitor (4) Diabetes Code(s): E11.9 - Type 2 diabetes mellitus without complications Status: Acute Plan: Maintain blood sugar between 140 mg /dl to 180 mg/dl , on insulin. <Arnulfo Fox - Last Filed: 03/21/18 21:17> History of Present Illness Primary Care Provider: UNKNOWN [facility] - Medical History Medical History: Medical History (Last Updated 03/21/18 @ 01:40 by Chris Moses MD) Acute renal insufficiency CAD (coronary artery disease) Congenital pes planus Coronary atherosclerosis Diabetes Diabetic retinopathy Heart attack Hernia Hyperlipidemia Hypersomnia with sleep apnea Hypertension Obesity, Class III, BMI 40-49.9 (morbid obesity) PAD (peripheral artery disease) Polyneuropathy in diabetes Venous (peripheral) insufficiency Venous ulcer of leg At risk for falls Cataract, left eye - Surgical History Surgical History: Surgical History (Last Reviewed 03/20/18 @ 16:44 by TYLER Mcfarland) H/O hernia repair History of cholecystectomy Stented coronary artery - Family History Family History: Family History (Last Reviewed 03/20/18 @ 16:44 by TYLER Mcfarland) Other CAD (coronary artery disease) CVA (cerebral vascular accident) Medications and Allergies Active Medications: Active Medications Acetaminophen (Tylenol) 650 mg PO Q4H PRN PRN Reason: Temp > 100.4 Amlodipine Besylate (Norvasc) 10 mg PO DAILY [facility] Last Admin: 03/21/18 09:47 Dose: 10 mg Aspirin (Ecotrin) 81 mg PO DAILY [facility] Last Admin: 03/21/18 09:47 Dose: 81 mg Atorvastatin Calcium (Lipitor) 80 mg PO DAILY [facility] Last Admin: 03/21/18 09:48 Dose: 80 mg Carvedilol (Coreg) 25 mg PO BID [facility] Last Admin: 03/21/18 20:05 Dose: 25 mg Clopidogrel Bisulfate (Plavix) 75 mg PO DAILY [facility] Last Admin: 03/21/18 09:48 Dose: 75 mg Dextrose (D50w Vial) 50 ml IV.PUSH UNSCH PRN PRN Reason: PER HYPOGLYCEMIA PROTOCOL Duloxetine HCl (Cymbalta) 80 mg PO DAILY [facility] Last Admin: 03/21/18 10:34 Dose: Not Given Glipizide (Glucotrol) 5 mg PO DAILY [facility] Last Admin: 03/21/18 09:47 Dose: 5 mg Glucagon (Glucagon Inj) 1 mg OTHER PRN PRN PRN Reason: for Hypoglycemia Protocol Heparin Sodium (Porcine) (Heparin Inj) 5,000 units SQ Q8HR [facility] Last Admin: 03/21/18 20:04 Dose: 5,000 units Sodium Chloride (Ns Inj) 1,000 mls @ 100 mls/hr IV.CONT .Q10H [facility] Last Admin: 03/21/18 17:58 Dose: 100 mls/hr Insulin Aspart (Novolog Insulin Correctional Sugar Inj) 0 unit SQ ACHS [facility]; Protocol Last Admin: 03/21/18 17:59 Dose: Not Given Insulin Detemir (Levemir Inj) 45 unit SQ BID [facility] Last Admin: 03/21/18 20:05 Dose: 45 unit Isosorbide Mononitrate (Imdur) 120 mg PO DAILY@0700 [facility] Last Admin: 03/21/18 06:40 Dose: 120 mg Lactobacillus Acidophilus (Lactinex) 1 tab PO TID [facility] Last Admin: 03/21/18 17:59 Dose: 1 tab Mupirocin (Bactroban 2% Cream) 1 applicatio TOPICAL BID [facility] Last Admin: 03/21/18 20:05 Dose: 1 applicatio Niacin (Slo-Niacin) 1,500 mg PO DAILY [facility] Last Admin: 03/21/18 10:03 Dose: 1,500 mg Nitroglycerin (Nitrostat Sl (Override)) 0.4 mg SL Q5M PRN PRN Reason: Chest Pain Non-Formulary Medication (Vitamin B Complex [Vitamin B Complex]) 1 tab PO DAILY [facility] Last Admin: 03/21/18 09:44 Dose: Not Given Ondansetron HCl (Zofran Inj) 4 mg IV.PUSH Q6H PRN PRN Reason: NAUSEA OR VOMITING Sodium Chloride (Ns Flush) 2 ml IV.FLUSH BID [facility] Last Admin: 03/21/18 09:48 Dose: Not Given Sodium Chloride (Ns Flush) 2 ml IV.FLUSH PRN PRN PRN Reason: FLUSH AFTER USING IV ACCESS Tramadol HCl (Ultram) 50 mg PO Q8H PRN PRN Reason: Acute Pain Last Admin: 03/21/18 20:05 Dose: 50 mg Exam Vital signs: Vital Signs 03/20/18 21:55 03/20/18 22:00 03/21/18 00:00 Temperature 98.4 F 98.0 F Pulse Rate 82 80 68 Respiratory Rate 20 20 20 Blood Pressure 146/72 H 140/70 160/59 H Pulse Oximetry 98 98 97 03/21/18 04:00 03/21/18 08:00 03/21/18 08:01 Temperature 98.0 F 97.6 F Pulse Rate 67 66 66 Respiratory Rate 20 16 Blood Pressure 157/65 H 152/69 H Pulse Oximetry 97 97 03/21/18 11:58 03/21/18 16:00 03/21/18 18:00 Temperature 97.6 F 97.3 F L Pulse Rate 66 65 66 Respiratory Rate 16 16 Blood Pressure 136/62 162/72 H Pulse Oximetry 96 96 Intake & Output 03/21/18 03/21/18 03/22/18 06:59 18:59 06:59 Intake Total 3000 / 3000 2860 / 2860 Balance 3000 / 3000 2860 / 2860 Weight 157.85 kg Intake: IV 3000 / 3000 1000 / 1000 NS Inj 1,000 ML @ 100 mls/hr IV 1000 / 1000 1000 / 1000 .CONT .Q10H [facility] Rx#:[id number] NS Inj 1,000 ML @ 1000 mls/hr 1999 / 1999 IV.SIG BOLUS LONG Rx#:[id number] Oral 360 / 360 Other 1500 / 1500 Other: Other Intake Source Saline Solution # Voids 3 Date of Last Bowel Movement 03/20/18 Weight On Admission 157.85 kg Results - Lab Results 03/21/18 05:17 03/21/18 05:17 Most recent lab results Calcium 8.0 mg/dL (8.5-10.1) L 03/21/18 05:17 Magnesium 2.3 mg/dL (1.5-2.5) 03/20/18 16:30 Assessment and Plan - Assessment (1) Acute renal failure (ARF) Code(s): N17.9 - Acute kidney failure, unspecified Status: Acute Plan: Patient seen and examined, agree with above. Chronic kidney disease and develop KAE. Possibly has pre renal element,. Continue IVF (2) Hypertension Code(s): I10 - Essential (primary) hypertension Status: Chronic (3) Hyperlipidemia Code(s): E78.5 - Hyperlipidemia, unspecified Status: Chronic (4) Diabetes Code(s): E11.9 - Type 2 diabetes mellitus without complications Status: Acute <Diana Rodríguez - Last Filed: 03/21/18 09:50> (1) Acute renal failure (ARF) Qualifiers: Acute renal failure type: unspecified Qualified Code(s): N17.9 - Acute kidney failure, unspecified <Arnulfo Fox - Last Filed: 03/21/18 21:17> (1) Acute renal failure (ARF) Qualifiers: Acute renal failure type: unspecified Qualified Code(s): N17.9 - Acute kidney failure, unspecified (2) Hypertension Qualifiers: (3) Hyperlipidemia Qualifiers:
[2018-03-21] MEDS: Insulin Detemir Inj 1,000 UNIT/10 ML Vial SQ SCH ×2 (11:14→20:05)
--- NOTE | 2018-03-21 13:21 | ECG ---
Date Performed: 03/20/2018 Time Performed: 18:03:11 PTAGE: 67 years EKG: Sinus rhythm NORMAL ECG Since the PREVIOUS TRACING , no significant change noted PREVIOUS TRACIN03/13/2018 19.59 DOCTOR: Soraida Urbina Interpretating Date/Time 03/21/2018 13:21:07
--- NOTE | 2018-03-21 13:26 | P.PNIM ---
Subjective Interval history: Follow-up on patient with acute renal failure. Patient seen and examined. Patient says he feels okay. He reports good urinary output. He denies any dysuria. He reports 1 small loose bowel movement early this morning. Patient reports receiving antibiotics in December for ulcerative lesions on his legs. He denies any dark/bloody/tarry stools. He denies any chest pain or shortness of breath. He denies any nausea, vomiting or abdominal pain. Physical Exam Vital signs: Last Vital Signs Temp 97.6 F 03/21/18 11:58 Pulse 66 03/21/18 11:58 Resp 16 03/21/18 11:58 BP 136/62 03/21/18 11:58 Pulse Ox 96 03/21/18 11:58 Intake & Output 03/19/18 03/20/18 03/21/18 03/22/18 06:59 06:59 06:59 06:59 Intake Total 3000 / 3000 Balance 3000 / 3000 Weight 157.85 kg Narrative: GENERAL: This is a morbidly obese well-developed well-nourished male patient, in no acute distress. Awake and alert. Lying in bed with his CPAP machine on. SKIN: Warm and dry. + Mild erythema noted on anterior lower legs with evidence of superficial skin breakdown HEENT: NC/AT. EOMI. PERRLA. No scleral icterus. No nasal drainage. Moist mucous membranes. Airway patent. NECK: Supple, trachea midline. CARDIOVASCULAR: Regular rate and rhythm. +soft systolic murmur. RESPIRATORY: Breath sounds equal bilaterally. No accessory muscle use. Diminished at bases. GASTROINTESTINAL: Abdomen soft, non-tender, nondistended. +BS MUSCULOSKELETAL: No cyanosis or clubbing. +Trace to 1+ BLE pitting edema. NEUROLOGICAL: Awake and alert. No obvious cranial nerve deficits. Able to move all extremities spontaneously. Normal speech. PSYCHIATRIC: Appropriate mood and affect; insight and judgment normal. Results Labs CBC & Chem 7: 03/21/18 05:17 03/21/18 05:17 Labs: Microbiology 03/20/18 18:12 Stool Stool for WBCs - Final 03/20/18 18:12 Stool Stool Occult Blood ([facility]) - Final Hemoccult negative Imaging Imaging: Impressions Abdomen/Pelvis CT 03/20/18 17:39 CONCLUSION: 1. Unremarkable bowel gas pattern with no inflammatory change or obstruction. 2. Status post cholecystectomy. 3. Small anterior abdominal wall hernia containing omental fat. Chest X-Ray 03/20/18 18:00 CONCLUSION: Elevation left hemidiaphragm and left basilar density. Assessment and Plan (1) Acute renal failure (ARF): Code(s): N17.9 - Acute kidney failure, unspecified Status: Acute (2) Hypertension: Code(s): I10 - Essential (primary) hypertension Status: Chronic (3) Hyperlipidemia: Code(s): E78.5 - Hyperlipidemia, unspecified Status: Chronic (4) Diabetes: Code(s): E11.9 - Type 2 diabetes mellitus without complications Status: Acute Plan 67-year-old male with past medical history significant for coronary artery disease, hypertension, diabetes, obstructive sleep apnea, chronic kidney disease , iron deficiency anemia and morbid obesity admitted with acute renal failure: Acute on chronic renal failure, multifactorial secondary to dehydration secondary to diarrhea also likely compounded with possible contrast-induced nephropathy CT the abdomen and pelvis revealed no evidence of obstructive uropathy, no stones Creatinine 11.32. previous Cr 1.35 03/15/18 -Nephrology following, appreciate assistance -Continue on IV fluids per nephrology instructions -change to renal diet -strict I&Os -Monitor urine output -Monitor electrolytes -Avoid nephrotoxic agents. Continue to hold metformin, Lasix, gabapentin, gemfibrozil, mag oxide and Cymbalta -Continue to monitor kidney function closely. Repeat labs in a.m. Elevated lipase level Patient has no abdominal complaints Pancreas unremarkable on CT the abdomen pelvis -Likely secondary to acute renal failure Hypertension -Continue patient on Norvasc 10 mg daily, Coreg 25 mg twice daily, Imdur 120 mg daily -Continue to monitor BP and adjust treatment according Coronary artery disease NSTEMI status post coronary angiogram March 13, 2018, medical management recommended -Continue on home dose of Plavix and ASA daily -Continue on statin therapy daily -ACEI discontinued secondary to ARF -Continue on Coreg Diabetes -Continue on home dose of glipizide -Continue Accu-Cheks and insulin sliding scale Anemia, chronic, stable Hemoglobin low but appears stable No evidence of active bleeding -Monitor CBC as indicated Diarrhea/constipation Patient reports recent antibiotic use in December Patient reports ongoing issues with chronic diarrhea/constipation -GI consulted, appreciate assistance -C. difficile and stool studies ordered/pending -Add lactobacillus -Monitor stooling Superficial ulcerative lesions bilateral lower extremities BLE edema -Application of mupirocin BID -keep legs elevated TRAY -Continue CPAP at night DVT prophylaxis -Heparin Progress Note: Quality VTE Deep Vein Thrombosis/Pulmonary Embolism Present on Admission: No _ (1) Diabetes Qualifiers: Chronic kidney disease stage: Diabetes mellitus complication detail: Diabetes mellitus complication status: Diabetes mellitus [employer] insulin use : Diabetes mellitus macular edema: Diabetes mellitus type: Diabetic retinopathy severity: Laterality: Proliferative retinopathy type: (2) Acute renal failure (ARF) Qualifiers: Acute renal failure type: unspecified Qualified Code(s): N17.9 - Acute kidney failure, unspecified (3) Hyperlipidemia Qualifiers: Hyperlipidemia type: (4) Hypertension Qualifiers: Hypertension type:
[2018-03-21] MEDS: Lactobacillus Acidophilus/L. Spores Tablet PO SCH (17:59)
[2018-03-22 05:01] LABS: Albumin 3.4 g/dL (3.4-5.0); Carbon Dioxide 22.4 meq/L (21.0-32.0); Phosphorus 6.4 mg/dL (2.5-4.9); Potassium 4.7 meq/L (3.5-5.1)
[2018-03-22] MEDS: Sod Chloride 0.9% Inj 1,000 ML IV.CONT SCH ×3 (05:34→22:38)
[2018-03-22] MEDS: Heparin - SQ 10,000 UNITS/ML Vial SQ SCH ×3 (05:35→22:39)
[2018-03-22] MEDS: Insulin NovoLOG Aspart Correctional Sugar Inj SQ SCH ×4 (09:01→21:30)
[2018-03-22] MEDS: Insulin Detemir Inj 1,000 UNIT/10 ML Vial SQ SCH (09:02)
[2018-03-22] MEDS: amLODIPine 10 MG Tablet PO SCH (09:03)
[2018-03-22] MEDS: glipiZIDE 5 MG Tablet PO SCH (09:03)
[2018-03-22] MEDS: Isosorbide Mononitrate 60 MG ER 24HR Tablet (Imdur) PO SCH (09:03)
[2018-03-22] MEDS: Carvedilol 12.5 MG Tablet PO SCH ×2 (09:04→21:30)
[2018-03-22] MEDS: Lactobacillus Acidophilus/L. Spores Tablet PO SCH ×3 (09:23→18:10)
[2018-03-22 09:46] LABS: Creatinine,Urine Random 54 mg/dL (27-300); Sodium,Urine Random 70 meq/L
--- NOTE | 2018-03-22 11:25 | P.PNNP ---
Subjective Interval history: Resting comfortably with BIPAP on. Denies any shortness of breath, nausea, vomiting, or diarrhea. Creatinine improving at 7.73. <Diana Rodríguez - Last Filed: 03/22/18 11:19> Physical Exam Vital signs: Vital Signs 03/21/18 11:58 03/21/18 16:00 03/21/18 18:00 Temperature 97.6 F 97.3 F L Pulse Rate 66 65 66 Respiratory Rate 16 16 Blood Pressure 136/62 162/72 H Pulse Oximetry 96 96 03/21/18 20:00 03/22/18 00:00 03/22/18 04:00 Temperature 97.7 F 97.8 F 97.6 F Pulse Rate 64 62 60 Respiratory Rate 18 18 18 Blood Pressure 171/79 H 170/75 H 142/64 H Pulse Oximetry 98 96 96 03/22/18 08:00 Temperature 97.4 F L Pulse Rate 62 Respiratory Rate 16 Blood Pressure 153/61 H Pulse Oximetry 98 Intake & Output 03/21/18 03/22/18 03/22/18 18:59 06:59 18:59 Intake Total 2860 / 2860 2980 / 2980 Balance 2860 / 2860 2980 / 2980 Intake: IV 1000 / 1000 1000 / 1000 NS Inj 1,000 ML @ 100 mls/hr IV 1000 / 1000 1000 / 1000 .CONT .Q10H LONG Rx#:[id number] Oral 360 / 360 480 / 480 Other 1500 / 1500 1500 / 1500 Other: Other Intake Source Saline Solution Saline Solution # Voids 3 5 Date of Last Bowel Movement 03/20/18 Narrative: GENERAL: In no acute distress. Awake and alert. Lying in bed with his CPAP machine on. SKIN: Warm and dry. + Mild erythema noted on anterior lower legs with evidence of superficial skin breakdown NECK: Supple, trachea midline. No JVD CARDIOVASCULAR: Regular rate and rhythm. +soft systolic murmur. RESPIRATORY: Breath sounds equal bilaterally. No accessory muscle use. Diminished at bases. GASTROINTESTINAL: Abdomen soft, non-tender, nondistended. +BS MUSCULOSKELETAL: No cyanosis or clubbing. +Trace edema NEUROLOGICAL: Awake and alert. No obvious cranial nerve deficits. Able to move all extremities spontaneously. Normal speech. <Diana Rodríguez - Last Filed: 03/22/18 11:19> Vital signs: Vital Signs 03/22/18 00:00 03/22/18 04:00 03/22/18 08:00 Temperature 97.8 F 97.6 F 97.4 F L Pulse Rate 62 60 63 Respiratory Rate 18 18 16 Blood Pressure 170/75 H 142/64 H 153/61 H Pulse Oximetry 96 96 98 03/22/18 12:15 03/22/18 16:15 Temperature 97.4 F L 97.9 F Pulse Rate 59 L 49 L Respiratory Rate 20 24 Blood Pressure 150/64 H 139/72 Pulse Oximetry 98 98 Intake & Output 03/22/18 03/22/18 03/23/18 06:59 18:59 06:59 Intake Total 2980 / 2980 1000 / 1000 1910 Balance 2980 / 2980 1000 / 1000 1910 Intake: IV 1000 / 1000 1000 / 1000 NS Inj 1,000 ML @ 100 mls/hr IV 1000 / 1000 1000 / 1000 .CONT .Q10H LONG Rx#:[id number] Oral 480 / 480 1910 Other 1500 / 1500 Other: Other Intake Source Saline Solution # Voids 5 4 <Amelia Fox Q - Last Filed: 03/22/18 20:27> Assessment and Plan - Assessment (1) Acute renal failure (ARF) Code(s): N17.9 - Acute kidney failure, unspecified Status: Acute Qualifiers: Acute renal failure type: unspecified Qualified Code(s): N17.9 - Acute kidney failure, unspecified Plan: Acute kidney injury with a creatinine of 11.32 and potassium level of 5.7 on admission. KAE possible related to contrast received on the in combination with poor intake and diarrhea. FeNA at 7.1 % suggestive of ATN with possible prerenal element Has chronic kidney disease with GFR reported at 45ml/min most likely from HTN/ renovascular disease or diabetes. CT of abdomen with no hydronephrosis or masses. Creatinine 11.32 ->10.13 ->7.73 UOP 1.2 liters/24 hours. Recommend to continue IVF and oral fluids encouraged. Avoid nephrotoxins including NSAIDS and IV contrast. Continue to monitor I+O ordered. Fluid and electrolytes are stable Will monitor urinary output and BMP. labs in AM (2) Hypertension Code(s): I10 - Essential (primary) hypertension Status: Chronic Plan: Elevated. On amlodipine and coreg. Hydralazine added. (3) Hyperlipidemia Code(s): E78.5 - Hyperlipidemia, unspecified Status: Chronic Plan: On Lipitor (4) Diabetes Code(s): E11.9 - Type 2 diabetes mellitus without complications Status: Acute Plan: Maintain blood sugar between 140 mg /dl to 180 mg/dl , on insulin. Well controlled. <Diana Rodríguez - Last Filed: 03/22/18 11:19> - Assessment (1) Acute renal failure (ARF) Code(s): N17.9 - Acute kidney failure, unspecified Status: Acute Qualifiers: Acute renal failure type: unspecified Qualified Code(s): N17.9 - Acute kidney failure, unspecified Plan: Patient seen and examined, agree with above. Creatinine continue to improve, Continue IVF, follow the urine out put and BMP. (2) Hypertension Code(s): I10 - Essential (primary) hypertension Status: Chronic Qualifiers: (3) Hyperlipidemia Code(s): E78.5 - Hyperlipidemia, unspecified Status: Chronic Qualifiers: (4) Diabetes Code(s): E11.9 - Type 2 diabetes mellitus without complications Status: Acute <Arnulfo Fox - Last Filed: 03/22/18 20:27>
[2018-03-22] MEDS: hydrALAZINE 25 MG Tablet PO SCH ×2 (13:05→18:10)
--- NOTE | 2018-03-22 13:20 | P.PNIM ---
Subjective Interval history: Follow-up on patient with acute renal failure. Patient seen and examined. Patient denies any new medical complaints or concerns. He reports good urinary output. Denies any fever or chills. Denies any chest pain or shortness of breath. He denies any nausea, vomiting or abdominal pain. Denies any increased swelling in the abdomen or lower extremities. He has not had any recurrence of diarrhea since early yesterday morning. Physical Exam Vital signs: Last Vital Signs Temp 97.4 F L 03/22/18 12:15 Pulse 59 L 03/22/18 12:15 Resp 20 03/22/18 12:15 BP 150/64 H 03/22/18 12:15 Pulse Ox 98 03/22/18 12:15 Intake & Output 03/20/18 03/21/18 03/22/18 03/23/18 06:59 06:59 06:59 06:59 Intake Total 3000 / 3000 5840 / 5840 Balance 3000 / 3000 5840 / 5840 Weight 157.85 kg Narrative: GENERAL: This is a morbidly obese well-developed well-nourished male patient, in no acute distress. Awake and alert. L SKIN: Warm and dry. + Mild erythema noted on anterior lower legs with evidence of superficial skin breakdown HEENT: NC/AT. EOMI. PERRLA. No scleral icterus. No nasal drainage. Moist mucous membranes. Airway patent. NECK: Supple, trachea midline. CARDIOVASCULAR: Regular rate and rhythm. +soft systolic murmur. RESPIRATORY: Breath sounds equal bilaterally. No accessory muscle use. Diminished at bases. GASTROINTESTINAL: Abdomen soft, non-tender, nondistended. +BS MUSCULOSKELETAL: No cyanosis or clubbing. +Trace bilateral edema lower extremities, improved from yesterday's exam. NEUROLOGICAL: Awake and alert. No obvious cranial nerve deficits. Able to move all extremities spontaneously. Normal speech. PSYCHIATRIC: Appropriate mood and affect; insight and judgment normal. Results Labs CBC & Chem 7: 03/21/18 05:17 03/22/18 04:14 Labs: Microbiology 03/20/18 18:12 Stool Enteric Pathogens (PCR) - Final No enteric pathogens detected by PCR (No Salmonella sp., Shigella sp., Campylobacter sp., Yersinia enterocolitica, Vibrio sp., Norovirus, or EHEC (Shiga Toxin 1 or Shiga Toxin 2) detected. 03/20/18 18:12 Stool Stool for WBCs - Final Assessment and Plan (1) Acute renal failure (ARF): Code(s): N17.9 - Acute kidney failure, unspecified Status: Acute (2) Hypertension: Code(s): I10 - Essential (primary) hypertension Status: Chronic (3) Hyperlipidemia: Code(s): E78.5 - Hyperlipidemia, unspecified Status: Chronic (4) Diabetes: Code(s): E11.9 - Type 2 diabetes mellitus without complications Status: Acute Plan 67-year-old male with past medical history significant for coronary artery disease, hypertension, diabetes, obstructive sleep apnea, chronic kidney disease , iron deficiency anemia and morbid obesity admitted with acute renal failure: Acute on chronic renal failure, multifactorial secondary to dehydration secondary to diarrhea also likely compounded with possible contrast-induced nephropathy Hyperphosphatemia CT the abdomen and pelvis revealed no evidence of obstructive uropathy, no stones Creatinine 11.32. previous Cr 1.35 03/15/18 -Nephrology following, appreciate assistance -Creatinine trending down, has improved to 7.73 -Continue to monitor urine output. UOP 1.2 liters in past 24hrs. -Continue on IV fluids per nephrology instructions -continue on renal diet -strict I&Os -Monitor electrolytes -Avoid nephrotoxic agents. Continue to hold metformin, Lasix, gabapentin, gemfibrozil, mag oxide and Cymbalta -Continue to monitor kidney function closely. Repeat labs in a.m. Elevated lipase level Patient has no abdominal complaints Pancreas unremarkable on CT the abdomen pelvis -Likely secondary to acute renal failure Hypertension, not well controlled, possibly secondary to IV fluid hydration -Continue patient on Norvasc 10 mg daily, Coreg 25 mg twice daily, Imdur 120 mg daily -Started on hydralazine by nephrology -Continue to monitor BP and adjust treatment according Coronary artery disease NSTEMI status post coronary angiogram March 13, 2018, medical management recommended -Continue on home dose of Plavix and ASA daily -Continue on statin therapy daily -ACEI discontinued secondary to ARF -Continue on Coreg CHF, does not appear decompensated -Continue on home dose of Coreg -lasix and ACEI discontinued secondary to acute renal failure -Monitor volume status closely while on IV fluids Diabetes Blood sugar low this a.m, 72 -Hold long-acting insulin and oral glipizide -Continue Accu-Cheks and insulin sliding scale Anemia, chronic, stable Hemoglobin low but appears stable No evidence of active bleeding Stool Hemoccult negative -Monitor CBC as indicated Diarrhea/constipation Patient reports recent antibiotic use in December Patient reports ongoing issues with chronic diarrhea/constipation No enteric pathogens noted on stool studies -C. difficile ordered but no further recurrence of loose stools -lactobacillus added, continue -Monitor stooling Superficial ulcerative lesions bilateral lower extremities BLE edema, improved -Application of mupirocin BID -keep legs elevated TRAY -Continue CPAP at night DVT prophylaxis -Heparin Progress Note: Quality VTE Deep Vein Thrombosis/Pulmonary Embolism Present on Admission: No _ (1) Acute renal failure (ARF) Qualifiers: Acute renal failure type: unspecified Qualified Code(s): N17.9 - Acute kidney failure, unspecified (2) Hypertension Qualifiers: Hypertension type: (3) Hyperlipidemia Qualifiers: Hyperlipidemia type: (4) Diabetes Qualifiers: Diabetes mellitus type: Diabetes mellitus long term care administrator insulin use: Diabetes mellitus complication status: Diabetes mellitus complication detail: Diabetic retinopathy severity: Proliferative retinopathy type: Diabetes mellitus macular edema: Laterality: Chronic kidney disease stage:
[2018-03-23 05:40] LABS: Calcium 7.7 mg/dL (8.5-10.1); Carbon Dioxide 21.8 meq/L (21.0-32.0); Potassium 4.8 meq/L (3.5-5.1)
[2018-03-23] MEDS: Heparin - SQ 10,000 UNITS/ML Vial SQ SCH ×3 (05:50→21:34)
[2018-03-23] MEDS: Insulin NovoLOG Aspart Correctional Sugar Inj SQ SCH ×4 (09:39→21:29)
[2018-03-23] MEDS: Isosorbide Mononitrate 60 MG ER 24HR Tablet (Imdur) PO SCH (09:40)
[2018-03-23] MEDS: hydrALAZINE 25 MG Tablet PO SCH ×3 (09:41→18:15)
[2018-03-23] MEDS: amLODIPine 10 MG Tablet PO SCH (09:41)
[2018-03-23] MEDS: Sod Chloride 0.9% Inj 1,000 ML IV.CONT SCH ×3 (09:41→21:18)
[2018-03-23] MEDS: Lactobacillus Acidophilus/L. Spores Tablet PO SCH ×3 (09:41→18:15)
[2018-03-23] MEDS: Vitamin B Complex/Vitamin C Tablet PO SCH (09:42)
[2018-03-23] MEDS: Carvedilol 12.5 MG Tablet PO SCH ×2 (09:42→21:28)
--- NOTE | 2018-03-23 10:48 | P.PNIM ---
Subjective Interval history: Follow-up on patient with acute renal failure. Patient seen and examined. Patient says he is doing okay. He is upset that he is still down in the CDU and has not been moved to a regular room on the floor. He says that he would not treat a dog like this. He denies any acute medical complaints. He says the swelling in his legs is improved. He denies any chest pain or shortness of breath. He denies any nausea, vomiting or abdominal pain. He has had no recurrence of diarrhea. Physical Exam Vital signs: Last Vital Signs Temp 98.1 F 03/23/18 03:16 Pulse 88 03/23/18 08:00 Resp 18 03/23/18 08:00 BP 176/74 H 03/23/18 08:00 Pulse Ox 97 03/23/18 08:00 Intake & Output 03/21/18 03/22/18 03/23/18 03/24/18 06:59 06:59 06:59 06:59 Intake Total 3000 / 3000 5840 / 5840 4831 / 4831 1000 / 1000 Output Total 1050 / 1050 Balance 3000 / 3000 5840 / 5840 3781 / 3781 1000 / 1000 Weight 157.85 kg Narrative: GENERAL: This is a morbidly obese well-developed well-nourished male patient, in no acute distress. Awake and alert. Appears comfortable sitting on side of bed. SKIN: Warm and dry. + Mild erythema noted on anterior lower legs with evidence of superficial skin breakdown HEENT: NC/AT. EOMI. PERRLA. No scleral icterus. No nasal drainage. Moist mucous membranes. Airway patent. NECK: Supple, trachea midline. CARDIOVASCULAR: Regular rate and rhythm. +soft systolic murmur. RESPIRATORY: Breath sounds equal bilaterally. No accessory muscle use. Diminished at bases. GASTROINTESTINAL: Abdomen soft, non-tender, nondistended. +BS MUSCULOSKELETAL: No cyanosis or clubbing. +Trace bilateral edema lower extremities. NEUROLOGICAL: Awake and alert. No obvious cranial nerve deficits. Able to move all extremities spontaneously. Normal speech. PSYCHIATRIC: Appropriate mood and affect; insight and judgment normal. Results Labs CBC & Chem 7: 03/21/18 05:17 03/23/18 04:33 Assessment and Plan (1) Acute renal failure (ARF): Code(s): N17.9 - Acute kidney failure, unspecified Status: Acute (2) Hypertension: Code(s): I10 - Essential (primary) hypertension Status: Chronic (3) Hyperlipidemia: Code(s): E78.5 - Hyperlipidemia, unspecified Status: Chronic (4) Diabetes: Code(s): E11.9 - Type 2 diabetes mellitus without complications Status: Acute Plan 67-year-old male with past medical history significant for coronary artery disease, hypertension, diabetes, obstructive sleep apnea, chronic kidney disease , iron deficiency anemia and morbid obesity admitted with acute renal failure: Acute on chronic renal failure, multifactorial secondary to dehydration secondary to diarrhea also likely compounded with possible contrast-induced nephropathy Hyperphosphatemia, improving CT the abdomen and pelvis revealed no evidence of obstructive uropathy, no stones Creatinine 11.32. previous Cr 1.35 03/15/18 -Nephrology following, appreciate assistance -Creatinine trending down, has improved to 5.39 -Continue to monitor urine output. -Continue on IV fluids per nephrology instructions -continue on renal diet -strict I&Os -Monitor electrolytes -Avoid nephrotoxic agents. Continue to hold metformin, Lasix, gabapentin, gemfibrozil, mag oxide and Cymbalta -Continue to monitor kidney function closely. Repeat labs in a.m. Elevated lipase level Patient has no abdominal complaints Pancreas unremarkable on CT the abdomen pelvis -Likely secondary to acute renal failure Hypertension, not well controlled, possibly secondary to IV fluid hydration -Continue patient on Norvasc 10 mg daily, Coreg 25 mg twice daily, Imdur 120 mg daily -Started on hydralazine by nephrology, continue -Continue to monitor BP and adjust treatment according Coronary artery disease NSTEMI status post coronary angiogram March 13, 2018, medical management recommended -Continue on home dose of Plavix and ASA daily -Continue on statin therapy daily -ACEI discontinued secondary to ARF -Continue on Coreg CHF, does not appear decompensated -Continue on home dose of Coreg -lasix and ACEI discontinued secondary to acute renal failure -Monitor volume status closely while on IV fluids Diabetes Blood sugar overall controlled off of scheduled diabetic meds -Hold long-acting insulin and oral glipizide -Continue Accu-Cheks and insulin sliding scale Anemia, chronic, stable Hemoglobin low but appears stable No evidence of active bleeding Stool Hemoccult negative -Monitor CBC as indicated Diarrhea/constipation Patient reports recent antibiotic use in December Patient reports ongoing issues with chronic diarrhea/constipation No enteric pathogens noted on stool studies -C. difficile ordered but no further recurrence of loose stools -lactobacillus added, continue -Monitor stooling Superficial ulcerative lesions bilateral lower extremities BLE edema, improved -Application of mupirocin BID -keep legs elevated TRAY -Continue CPAP at night DVT prophylaxis -Heparin Discharge Planning: Likely discharge in the next 2-3 days pending continued improvement in kidney function. Progress Note: Quality VTE Deep Vein Thrombosis/Pulmonary Embolism Present on Admission: No _ (1) Diabetes Qualifiers: Chronic kidney disease stage: Diabetes mellitus complication detail: Diabetes mellitus complication status: Diabetes mellitus manager terminal insulin use : Diabetes mellitus macular edema: Diabetes mellitus type: Diabetic retinopathy severity: Laterality: Proliferative retinopathy type: (2) Acute renal failure (ARF) Qualifiers: Acute renal failure type: unspecified Qualified Code(s): N17.9 - Acute kidney failure, unspecified (3) Hyperlipidemia Qualifiers: Hyperlipidemia type: (4) Hypertension Qualifiers: Hypertension type:
--- NOTE | 2018-03-23 17:38 | P.PNNP ---
Subjective Interval history: No acute complaints Physical Exam Vital signs: Vital Signs 03/22/18 21:09 03/22/18 23:40 03/23/18 03:16 Temperature 98.0 F 98.2 F 98.1 F Pulse Rate 67 87 70 Respiratory Rate 22 20 20 Blood Pressure 173/74 H 197/84 H 146/63 H Pulse Oximetry 97 96 95 03/23/18 08:00 03/23/18 12:00 Temperature Pulse Rate 66 64 Respiratory Rate 18 16 Blood Pressure 176/74 H 144/63 H Pulse Oximetry 97 96 Intake & Output 03/22/18 03/23/18 03/23/18 18:59 06:59 18:59 Intake Total 1000 / 1000 3831 / 3831 2191 / 2191 Output Total 1050 / 1050 280 / 280 Balance 1000 / 1000 2781 / 2781 1910 / 1910 Intake: IV 1000 / 1000 1000 / 1000 NS Inj 1,000 ML @ 100 mls/hr IV 1000 / 1000 1000 / 1000 .CONT .Q10H LONG Rx#:[id number] Oral 2331 / 2331 1191 / 1191 Other 1500 / 1500 Output: Urine 1050 / 1050 280 / 280 Other: Other Intake Source Saline Solution # Voids 4 2 Date of Last Bowel Movement 03/21/18 - Constitutional no acute distress - Routine HEENT Exam Head: Present: normocephalic Eye: Present: EOMI ENT: Present: mucous membranes moist - Routine Neck Exam Present: supple - Routine Respiratory Exam Present: CTA bilaterally - Routine Cardiovascular Exam Present: RRR - Routine Abdominal Exam Present: soft, normoactive bowel sounds - Routine Skin Exam Present: intact - Routine Neurological Exam Present: alert, oriented X3 - Detailed Neurological Exam: Coma Scale Eye Opening: Spontaneous - Routine Psychiatric Exam Present: normal affect, normal thought process Assessment and Plan - Assessment (1) Acute renal failure (ARF) Code(s): N17.9 - Acute kidney failure, unspecified Status: Acute Qualifiers: Acute renal failure type: unspecified Qualified Code(s): N17.9 - Acute kidney failure, unspecified Plan: Acute kidney injury with a creatinine of 11.32 and potassium level of 5.7 on admission. KAE possible related to contrast received on the in combination with poor intake and diarrhea. FeNA at 7.1 % suggestive of ATN with possible prerenal element Has chronic kidney disease with GFR reported at 45ml/min most likely from HTN/ renovascular disease or diabetes. CT of abdomen with no hydronephrosis or masses. Creatinine 11.32 ->10.13 ->7.73 -> 5.3 UOP 1 liter/24 hours. Renal function improving Recommend to continue IVF and oral fluids encouraged. Avoid nephrotoxins including NSAIDS and IV contrast. Continue to monitor I+O ordered. Fluid and electrolytes are stable Will monitor urinary output and BMP. labs in AM. (2) Hypertension Code(s): I10 - Essential (primary) hypertension Status: Chronic Qualifiers: Plan: Stable On amlodipine and coreg. Hydralazine added. (3) Hyperlipidemia Code(s): E78.5 - Hyperlipidemia, unspecified Status: Chronic Qualifiers: Plan: On Lipitor (4) Diabetes Code(s): E11.9 - Type 2 diabetes mellitus without complications Status: Acute Plan: Maintain blood sugar between 140 mg /dl to 180 mg/dl , on insulin. Well controlled.
[2018-03-24] MEDS: Sod Chloride 0.9% Inj 1,000 ML IV.CONT SCH ×4 (06:01→17:11)
[2018-03-24] MEDS: Isosorbide Mononitrate 60 MG ER 24HR Tablet (Imdur) PO SCH (06:03)
[2018-03-24] MEDS: Heparin - SQ 10,000 UNITS/ML Vial SQ SCH ×3 (06:03→21:08)
[2018-03-24 06:09] LABS: Calcium 8.3 mg/dL (8.5-10.1); Carbon Dioxide 21.6 meq/L (21.0-32.0); Potassium 4.6 meq/L (3.5-5.1)
[2018-03-24] MEDS: amLODIPine 10 MG Tablet PO SCH (09:40)
[2018-03-24] MEDS: Carvedilol 12.5 MG Tablet PO SCH ×2 (09:40→21:08)
[2018-03-24] MEDS: hydrALAZINE 25 MG Tablet PO SCH ×3 (09:40→17:11)
[2018-03-24] MEDS: Lactobacillus Acidophilus/L. Spores Tablet PO SCH ×3 (09:41→17:11)
[2018-03-24] MEDS: Insulin NovoLOG Aspart Correctional Sugar Inj SQ SCH ×4 (09:42→21:10)
[2018-03-24] MEDS: Vitamin B Complex/Vitamin C Tablet PO SCH (10:36)
--- NOTE | 2018-03-24 10:53 | P.PNIM ---
Subjective Interval history: Patient denies any nausea vomiting since last night. Tolerating p.o. well. Says he has not had a bowel movement for at least a day or so. Says he feels well otherwise. Is asking me to restart his gabapentin. Physical Exam Vital signs: Vital Signs 03/23/18 12:00 03/23/18 18:00 03/23/18 20:00 Temperature 97.8 F 98.2 F Pulse Rate 64 70 63 Respiratory Rate 16 19 17 Blood Pressure 144/63 H 172/70 H 162/70 H Pulse Oximetry 96 98 97 03/24/18 00:00 03/24/18 01:18 03/24/18 03:57 Temperature 97.7 F 97.9 F Pulse Rate 73 65 66 Respiratory Rate 18 17 Blood Pressure 176/70 H 169/78 H Pulse Oximetry 97 98 03/24/18 04:00 03/24/18 08:00 Temperature 98.1 F Pulse Rate 62 66 Respiratory Rate 16 Blood Pressure 164/79 H Pulse Oximetry 97 Intake & Output 03/23/18 03/24/18 03/24/18 18:59 06:59 18:59 Intake Total 2191 / 2191 1868 131 / 131 Output Total 280 / 280 Balance 1910 / 1910 131 / 131 Weight 149.4 kg Intake: IV 1000 / 1000 1868 131 / 131 NS Inj 1,000 ML @ 100 mls/hr IV 1000 / 1000 1868 131 / 131 .CONT .Q10H LONG Rx#:[id number] Oral 1191 / 1191 Output: Urine 280 / 280 Other: # Voids 2 Date of Last Bowel Movement 03/23/18 Narrative: Clear lungs bilaterally, unlabored breathing Heart sounds regular rate rhythm, no murmurs Lying in bed, CPAP on Awake and alert Abdomen soft, nontender, nondistended Chronic lower extremity dry skin changes, no edema Results - Labs CBC & Chem 7: 03/21/18 05:17 03/24/18 04:51 Laboratory Results - last 24 hr 03/23/18 03/23/18 03/23/18 12:57 17:57 21:16 Sodium Potassium Chloride Carbon Dioxide Anion Gap BUN Creatinine Estimated GFR POC Glucose 159 H 154 H 189 H Random Glucose Calcium 03/24/18 03/24/18 04:51 07:35 Sodium 143 Potassium 4.6 Chloride 113 H Carbon Dioxide 21.6 Anion Gap 8 BUN 43 H Creatinine 3.60 H Estimated GFR 17 L POC Glucose 119 H Random Glucose 122 H Calcium 8.3 L Assessment and Plan - Assessment (1) Acute renal failure (ARF) Code(s): N17.9 - Acute kidney failure, unspecified Status: Acute (2) Hypertension Code(s): I10 - Essential (primary) hypertension Status: Chronic (3) Hyperlipidemia Code(s): E78.5 - Hyperlipidemia, unspecified Status: Chronic (4) Diabetes Code(s): E11.9 - Type 2 diabetes mellitus without complications Status: Acute - Plan 67-year-old male Presenting with nausea vomiting, admitted with acute on chronic renal failure. Acute on chronic renal failure, multifx -diarrhea + dehydration + ATN possibly from contrast-induced nephropathy -Nephrology following Electrolytes stabilized Improving renal function with IV fluids, trend BMP in a.m. Elevated lipase level -Likely secondary to renal failure Hypertension, not well controlled, possibly secondary to IV fluid hydration -Continue Norvasc, Coreg, and Imdur -hydralazine by nephrology Coronary artery disease NSTEMI status post coronary angiogram March 13, 2018, medical management recommended -Plavix, aspirin, statin CHF, does not appear decompensated -Continue on home dose of Coreg -lasix and ACEI discontinued secondary to acute renal failure -Monitor volume status closely while on IV fluids Diabetes neuropathy -Continue Accu-Cheks SS -starting low dose gabapentin given impaired rf Anemia, chronic, stable -Hemoglobin low but appears stable -No evidence of active bleeding Diarrhea/constipation Patient reports recent antibiotic use in December Patient reports ongoing issues with chronic diarrhea/constipation No enteric pathogens noted on stool studies -C. difficile neg -resolved Superficial ulcerative lesions bilateral lower extremities BLE edema, improved -Application of mupirocin BID -keep legs elevated TRAY -Continue CPAP at night DVT prophylaxis -Heparin Discharge Planning: Likely discharge in the next 1-2 days pending continued improvement in kidney function. (1) Acute renal failure (ARF) Qualifiers: Acute renal failure type: unspecified Qualified Code(s): N17.9 - Acute kidney failure, unspecified (2) Hypertension Qualifiers: (3) Hyperlipidemia Qualifiers:
[2018-03-24] MEDS: Gabapentin 300 MG Capsule PO SCH ×2 (12:47→21:08)
[2018-03-24] MEDS: Docusate Sodium 100 MG Capsule PO SCH ×2 (12:47→21:08)
--- NOTE | 2018-03-24 17:22 | P.PNNP ---
Subjective Interval history: no acute complaints Physical Exam Vital signs: Vital Signs 03/23/18 18:00 03/23/18 20:00 03/24/18 00:00 Temperature 97.8 F 98.2 F 97.7 F Pulse Rate 70 63 73 Respiratory Rate 19 17 18 Blood Pressure 172/70 H 162/70 H 176/70 H Pulse Oximetry 98 97 97 03/24/18 01:18 03/24/18 03:57 03/24/18 04:00 Temperature 97.9 F Pulse Rate 65 66 62 Respiratory Rate 17 Blood Pressure 169/78 H Pulse Oximetry 98 03/24/18 08:00 03/24/18 12:00 03/24/18 16:00 Temperature 98.1 F 98.6 F 98.2 F Pulse Rate 64 59 L 82 Respiratory Rate 16 13 14 Blood Pressure 164/79 H 127/68 165/86 H Pulse Oximetry 97 97 98 Intake & Output 03/23/18 03/24/18 03/24/18 18:59 06:59 18:59 Intake Total 2191 / 2191 1868 1131 / 1131 Output Total 280 / 280 Balance 1910 1131 / 1131 Weight 149.4 kg Intake: IV 1000 / 1000 1868 1131 / 1131 NS Inj 1,000 ML @ 100 mls/hr IV 1000 / 1000 1868 1131 / 1131 .CONT .Q10H [facility] Rx#:[id number] Oral 1191 / 1191 Output: Urine 280 / 280 Other: # Voids 2 Date of Last Bowel Movement 03/23/18 03/23/18 - Constitutional no acute distress - Routine HEENT Exam Head: Present: normocephalic Eye: Present: EOMI ENT: Present: mucous membranes moist - Routine Neck Exam Present: supple - Routine Respiratory Exam Present: decreased breath sounds - Routine Cardiovascular Exam Present: RRR - Routine Abdominal Exam Present: soft - Routine Exam Perineum Description: Intact - Routine Skin Exam Present: intact - Routine Neurological Exam Present: alert, oriented X3 - Detailed Neurological Exam: Coma Scale Eye Opening: Spontaneous - Routine Psychiatric Exam Present: normal affect Assessment and Plan - Assessment (1) Acute renal failure (ARF) Code(s): N17.9 - Acute kidney failure, unspecified Status: Acute Qualifiers: Acute renal failure type: unspecified Qualified Code(s): N17.9 - Acute kidney failure, unspecified Plan: Acute kidney injury with a creatinine of 11.32 and potassium level of 5.7 on admission. KAE possible related to contrast received on the in combination with poor intake and diarrhea. FeNA at 7.1 % suggestive of ATN with possible prerenal element Has chronic kidney disease with GFR reported at 45ml/min most likely from HTN/ renovascular disease or diabetes. CT of abdomen with no hydronephrosis or masses. Creatinine 11.32 ->10.13 ->7.73 -> 5.3 -> 3.6 Patient voiding Renal function improving Recommend to continue IVF and oral fluids encouraged. Avoid nephrotoxins including NSAIDS and IV contrast. Continue to monitor I+O ordered. Fluid and electrolytes are stable Will monitor urinary output and BMP. labs in AM. (2) Hypertension Code(s): I10 - Essential (primary) hypertension Status: Chronic Qualifiers: Plan: Stable On amlodipine and coreg. Hydralazine added. (3) Hyperlipidemia Code(s): E78.5 - Hyperlipidemia, unspecified Status: Chronic Qualifiers: Plan: On Lipitor (4) Diabetes Code(s): E11.9 - Type 2 diabetes mellitus without complications Status: Acute Plan: Maintain blood sugar between 140 mg /dl to 180 mg/dl , on insulin. Well controlled.
[2018-03-25] MEDS: Sod Chloride 0.9% Inj 1,000 ML IV.CONT SCH ×3 (02:53→10:15)
[2018-03-25] MEDS: Isosorbide Mononitrate 60 MG ER 24HR Tablet (Imdur) PO SCH (06:18)
[2018-03-25] MEDS: Heparin - SQ 10,000 UNITS/ML Vial SQ SCH ×2 (06:18→13:57)
[2018-03-25] MEDS: Insulin NovoLOG Aspart Correctional Sugar Inj SQ SCH ×2 (08:02→12:19)
[2018-03-25] MEDS: Carvedilol 12.5 MG Tablet PO SCH (08:03)
[2018-03-25] MEDS: Lactobacillus Acidophilus/L. Spores Tablet PO SCH ×3 (08:03→17:08)
[2018-03-25] MEDS: amLODIPine 10 MG Tablet PO SCH (08:03)
[2018-03-25] MEDS: Vitamin B Complex/Vitamin C Tablet PO SCH (08:04)
[2018-03-25] MEDS: Docusate Sodium 100 MG Capsule PO SCH (08:04)
[2018-03-25] MEDS: hydrALAZINE 25 MG Tablet PO SCH ×3 (08:04→17:08)
[2018-03-25] MEDS: Gabapentin 300 MG Capsule PO SCH (08:04)
[2018-03-25 11:21] LABS: Calcium 7.8 mg/dL (8.5-10.1); Carbon Dioxide 22.1 meq/L (21.0-32.0); Potassium 4.5 meq/L (3.5-5.1)
[2018-03-25 13:40] VITALS: TEMP 98.3
--- NOTE | 2018-03-25 16:08 | P.PNNP ---
Subjective Interval history: Resting comfortably with CPAP on. Denies any shortness of breath, nausea, vomiting, or dysuria. Creatinine continues to improve at 2.39. <Diana Rodríguez - Last Filed: 03/25/18 16:04> Physical Exam Vital signs: Vital Signs 03/24/18 19:54 03/24/18 20:00 03/24/18 22:57 Temperature 98 F Pulse Rate 64 68 Respiratory Rate 17 18 Blood Pressure 149/64 H Pulse Oximetry 96 03/24/18 23:47 03/25/18 00:00 03/25/18 03:55 Temperature 97.8 F Pulse Rate 66 85 66 Respiratory Rate 18 Blood Pressure 157/64 H Pulse Oximetry 98 03/25/18 04:00 03/25/18 07:45 03/25/18 08:00 Temperature 97.2 F L 98.2 F Pulse Rate 65 63 66 Respiratory Rate 17 16 Blood Pressure 150/78 H 143/66 H Pulse Oximetry 96 95 03/25/18 12:00 Temperature 98.3 F Pulse Rate 63 Respiratory Rate 18 Blood Pressure 139/63 Pulse Oximetry 97 Intake & Output 03/24/18 03/25/18 03/25/18 18:59 06:59 18:59 Intake Total 1551 / 1551 1600 / 1600 Output Total 1500 / 1500 Balance 1551 / 1551 100 / 100 Weight 151.6 kg Intake: IV 1131 / 1131 1000 / 1000 NS Inj 1,000 ML @ 100 mls/hr IV 1131 / 1131 1000 / 1000 .CONT .Q10H [facility] Rx#:[id number] Oral 420 / 420 600 / 600 Output: Urine 1500 / 1500 Other: # Voids 3 Date of Last Bowel Movement 03/23/18 Narrative: GENERAL: alert and oriented SKIN: Warm and dry. NECK: Supple, trachea midline. No JVD CARDIOVASCULAR: Regular rate and rhythm without murmurs, gallops, or rubs. RESPIRATORY: Breath sounds equal bilaterally. No accessory muscle use. GASTROINTESTINAL: Abdomen soft, large, non-tender, nondistended. +BS MUSCULOSKELETAL: No cyanosis, or edema. BACK: Bilateral lower back pain on palpation <Diana Rodríguez - Last Filed: 03/25/18 16:04> Vital signs: Vital Signs 03/24/18 22:57 03/24/18 23:47 03/25/18 00:00 Temperature 97.8 F Pulse Rate 66 85 Respiratory Rate 18 18 Blood Pressure 157/64 H Pulse Oximetry 98 03/25/18 03:55 03/25/18 04:00 03/25/18 07:45 Temperature 97.2 F L Pulse Rate 66 65 63 Respiratory Rate 17 Blood Pressure 150/78 H Pulse Oximetry 96 03/25/18 08:00 03/25/18 12:00 03/25/18 16:00 Temperature 98.2 F 98.3 F 98.3 F Pulse Rate 66 63 68 Respiratory Rate 16 18 20 Blood Pressure 143/66 H 139/63 161/70 H Pulse Oximetry 95 97 96 Intake & Output 03/25/18 03/25/18 03/26/18 06:59 18:59 06:59 Intake Total 1600 / 1600 Output Total 1500 / 1500 Balance 100 / 100 Weight 151.6 kg Intake: IV 1000 / 1000 NS Inj 1,000 ML @ 100 mls/hr IV 1000 / 1000 .CONT .Q10H [facility] Rx#:[id number] Oral 600 / 600 Output: Urine 1500 / 1500 Other: # Voids 4 # Bowel Movements 2 <Amelia Fox Q - Last Filed: 03/25/18 22:13> Assessment and Plan - Assessment (1) Acute renal failure (ARF) Code(s): N17.9 - Acute kidney failure, unspecified Status: Acute Qualifiers: Acute renal failure type: unspecified Qualified Code(s): N17.9 - Acute kidney failure, unspecified Plan: Acute kidney injury with a creatinine of 11.32 and potassium level of 5.7 on admission. KAE possible related to contrast received on the in combination with poor intake and diarrhea. FeNA at 7.1 % suggestive of ATN with possible prerenal element Has chronic kidney disease with GFR reported at 45ml/min most likely from HTN/ renovascular disease or diabetes. CT of abdomen with no hydronephrosis or masses. Creatinine 11.32 ->10.13 ->7.73 -> 5.3 -> 3.6 ->2.39 Patient voiding Renal function improving Avoid nephrotoxins including NSAIDS and IV contrast. Continue to monitor I+O Fluid and electrolytes are stable With improvement in renal function will discontinue IVF, oral encouraged From nephrology stand point patient is cleared for discharge recommend follow up outpatient with nephrology (2) Hypertension Code(s): I10 - Essential (primary) hypertension Status: Chronic Plan: Stable On amlodipine, hydralazine, and coreg. (3) Hyperlipidemia Code(s): E78.5 - Hyperlipidemia, unspecified Status: Chronic Plan: On Lipitor (4) Diabetes Code(s): E11.9 - Type 2 diabetes mellitus without complications Status: Acute Plan: Maintain blood sugar between 140 mg /dl to 180 mg/dl , on insulin. Well controlled. <Diana Rodríguez - Last Filed: 03/25/18 16:04> - Assessment (1) Acute renal failure (ARF) Code(s): N17.9 - Acute kidney failure, unspecified Status: Acute Qualifiers: Acute renal failure type: unspecified Qualified Code(s): N17.9 - Acute kidney failure, unspecified Plan: Patient seen and examined, agree with above. Creatinine continue to improve, now 2.39. For discharge , I can follow in 2-3 weeks. (2) Hypertension Code(s): I10 - Essential (primary) hypertension Status: Chronic Qualifiers: (3) Hyperlipidemia Code(s): E78.5 - Hyperlipidemia, unspecified Status: Chronic Qualifiers: (4) Diabetes Code(s): E11.9 - Type 2 diabetes mellitus without complications Status: Acute <Arnulfo Fox - Last Filed: 03/25/18 22:13>
--- NOTE | 2018-03-25 16:35 | P.DS ---
Date of admission: 03/20/18 20:06 Primary care physician: UNKNOWN DS: Diagnosis - Discharge Diagnosis (1) Acute renal failure (ARF) Status: Acute (2) Hypertension Status: Chronic (3) Hyperlipidemia Status: Chronic (4) Diabetes Status: Acute DS: Medications - Discharge Medications Prescriptions: hydralazine 25 mg PO TID #90 tab DS: Summary Hospital Course: Patient was admitted, started on IV fluids. Nephrology was consulted, suspected dehydration combined with contrast-induced nephropathy leading to some acute tubular necrosis. Renal function significantly improved IV fluids and conservative measures. Patient met maximal benefit from hospitalization is clinically stable for discharge. Advised to refrain from NSAIDs. - Time Spent with Patient Total time spent providing and/or coordinating discharge services: Less than 30 minutes - Quality: VTE Deep Vein Thrombosis/Pulmonary Embolism Present on Admission: No Exam Vital signs: Vital Signs 03/24/18 19:54 03/24/18 20:00 03/24/18 22:57 Temperature 98 F Pulse Rate 64 68 Respiratory Rate 17 18 Blood Pressure 149/64 H Pulse Oximetry 96 03/24/18 23:47 03/25/18 00:00 03/25/18 03:55 Temperature 97.8 F Pulse Rate 66 85 66 Respiratory Rate 18 Blood Pressure 157/64 H Pulse Oximetry 98 03/25/18 04:00 03/25/18 07:45 03/25/18 08:00 Temperature 97.2 F L 98.2 F Pulse Rate 65 63 66 Respiratory Rate 17 16 Blood Pressure 150/78 H 143/66 H Pulse Oximetry 96 95 03/25/18 12:00 Temperature 98.3 F Pulse Rate 63 Respiratory Rate 18 Blood Pressure 139/63 Pulse Oximetry 97 Intake & Output 03/24/18 03/25/18 03/25/18 18:59 06:59 18:59 Intake Total 1551 / 1551 1600 / 1600 Output Total 1500 / 1500 Balance 1551 / 1551 100 / 100 Weight 151.6 kg Intake: IV 1131 / 1131 1000 / 1000 NS Inj 1,000 ML @ 100 mls/hr IV 1131 / 1131 1000 / 1000 .CONT .Q10H [facility] Rx#:[id number] Oral 420 / 420 600 / 600 Output: Urine 1500 / 1500 Other: # Voids 3 Date of Last Bowel Movement 03/23/18 Narrative: Clear lungs bilaterally, unlabored breathing Heart sounds regular rate rhythm, no murmurs Lying in bed, sitting up in chair, no acute distress Awake and alert Abdomen soft, nontender, nondistended No lower extremity edema Results Procedures completed during hospitalization: . Labs on day of discharge: Labs from last 24 hours 03/25/18 03/25/18 03/25/18 12:18 10:09 07:32 Sodium 140 Potassium 4.5 Chloride 111 H Carbon Dioxide 22.1 Anion Gap 7 BUN 31 H Creatinine 2.39 H Estimated GFR 27 L POC Glucose 144 H 114 H Random Glucose 192 H Calcium 7.8 L 03/24/18 03/24/18 19:36 17:08 Sodium Potassium Chloride Carbon Dioxide Anion Gap BUN Creatinine Estimated GFR POC Glucose 200 H 137 H Random Glucose Calcium - Impressions ITS Impressions Abdomen/Pelvis CT 03/20/18 17:39 CONCLUSION: 1. Unremarkable bowel gas pattern with no inflammatory change or obstruction. 2. Status post cholecystectomy. 3. Small anterior abdominal wall hernia containing omental fat. Chest X-Ray 03/20/18 18:00 CONCLUSION: Elevation left hemidiaphragm and left basilar density. Discharge Plan - Discharge Disposition Patient Disposition: Discharge Home - Discharge Condition Condition: Stable - Discharge Order Discharge Orders: Discharge Order (Routine); Ordered 03/25/18 Ordered By: Nikunj Ponce - Physicians Team Primary Care Provider: UNKNOWN, Attending Provider: Nikunj Ponce Other Providers: Arnulfo Fox MD
[2018-03-25 17:40] VITALS: BP 161/70; PULSE 68; RESP 20; O2SAT 96
== END 2018-03-25 18:37 | disposition home or self-care (01) | DRG 698 ==
LOC: NEPC 15:19 → NEDA 20:06 → NEPFCDU 22:47 → N04 03-23 17:21
PROVIDERS: ADMIT Hospitalist; ATTEND Hospitalist
DX: R74.8 Abnormal levels of other serum enzymes; G47.33 Obstructive sleep apnea (adult) (pediatric); N18.9 Chronic kidney disease, unspecified; E78.5 Hyperlipidemia, unspecified; I25.10 Atherosclerotic heart disease of native coronary artery without angina pectoris; K59.00 Constipation, unspecified; E11.42 Type 2 diabetes mellitus with diabetic polyneuropathy; E66.01 Morbid (severe) obesity due to excess calories; Q66.50 Congenital pes planus, unspecified foot; E87.5 Hyperkalemia; N17.0 Acute kidney failure with tubular necrosis; I21.4 Non-ST elevation (NSTEMI) myocardial infarction; Z79.4 Long term (current) use of insulin; T50.8X5A Adverse effect of diagnostic agents, initial encounter; Z68.42 Body mass index [BMI] 45.0-49.9, adult; I13.0 Hypertensive heart and chronic kidney disease with heart failure and stage 1 through stage 4 chronic kidney disease, or unspecified chronic kidney disease; E11.51 Type 2 diabetes mellitus with diabetic peripheral angiopathy without gangrene; Z88.0 Allergy status to penicillin; Z95.5 Presence of coronary angioplasty implant and graft; L97.909 Non-pressure chronic ulcer of unspecified part of unspecified lower leg with unspecified severity; K52.9 Noninfective gastroenteritis and colitis, unspecified; E11.622 Type 2 diabetes mellitus with other skin ulcer; E83.39 Other disorders of phosphorus metabolism; E11.22 Type 2 diabetes mellitus with diabetic chronic kidney disease; D50.9 Iron deficiency anemia, unspecified; I50.9 Heart failure, unspecified; E86.0 Dehydration; N14.1 Nephropathy induced by other drugs, medicaments and biological substances
CPT/HCPCS: 71010; 71045; 74176; 80048; 80053; 80069; 81001; 82272; 82570; 82948; 82962; 83690; 83735; 83935; 84100; 84300; 85025; 87205; 87493; 87506; 90760; 90761; 93005; 96360; 96361; 99285; J1644; J1815; J7030